=== PATIENT | male | born 1965 | race Caucasian/White ===

== ENCOUNTER → 2021-01-11 11:52 | Outpatient (REF) | payer MEDICARE, MEDICAID, SELFPAY ==
--- NOTE | 2021-01-11 12:01 | ECG_ITS ---
Test Reason : z78.9 Blood Pressure : / mmHG Vent. Rate : 086 BPM Atrial Rate : 086 BPM P-R Int : 140 ms QRS Dur : 102 ms QT Int : 344 ms P-R-T Axes : 002 017 041 degrees QTc Int : 411 ms Normal sinus rhythm Normal ECG When compared with ECG of 31-AUG-2009 14:06, No significant change was found Referred By: Flakito Wing Electronically Signed By:RUBEN COULTER MD
[2021-01-11 12:17] LABS: Basophils Absolute Auto 0.1 X10*3/uL (0.0-0.2); Basophils Percent Auto 0.5 % (0-2); Eosinophils Absolute Auto 0.3 X10*3/uL (0.0-0.4); Eosinophils Percent Auto 1.6 % (0-4); Hematocrit 37.7 % (42.0-52.0); Hemoglobin 12.2 g/dl (14.0-18.0); Imm Gran Abs Auto 0.26 X10*3/uL (0.00-0.03); Imm Gran Pct Auto 1.6 % (0.0-0.4); Lymphocytes Absolute Auto 1.9 X10*3/uL (1.2-4.9); MANUAL DIFF FLAG SCAN; Mean Corpuscular HGB Conc 32.4 g/dl (31.0-36.0); Mean Corpuscular Hemoglobin 31.8 pg (27.0-33.0); Mean Corpuscular Volume 98.2 fL (80.0-98.0); Monocytes Absolute Auto 1.5 X10*3/uL (0.1-1.2); Monocytes Percent Auto 9.5 % (2-11); Neutrophils Absolute Auto 11.8 x10*3/uL (2.0-8.3); Neutrophils Percent Auto 74.8 % (45-73); Platelet Count 415 X10*3/uL (160-400); Red Blood Count 3.84 X10*6/uL (4.60-5.80); Red Cell Distribution Width 14.1 % (11.0-16.0); SCAN SMEAR FLAG 1; White Blood Count 15.8 X10*3/uL (4.8-10.8)
[2021-01-11 13:14] LABS: SLIDE REVIEW VERIFIED
[2021-01-11 13:57] LABS: Alanine Aminotransferase 20 U/L (0-40); Albumin Level 3.7 g/dL (3.5-5.0); Alkaline Phosphatase 128 U/L (39-117); Anion Gap 17 (12-20); Aspartate Amino Transferase 24 U/L (5-37); Bilirubin Total 0.5 mg/dL (0.0-1.0); Blood Urea Nitrogen 19 mg/dL (9-16); Calcium 10.1 mg/dL (8.4-10.2); Carbon Dioxide 23 mmol/L (22-29); Chloride 101 mmol/L (96-108); Estimated Glomerular Filt Rate 54; Glucose Random 175 mg/dL (60-115); Potassium 4.6 mmol/L (3.3-5.1); Sodium 136 mmol/L (135-145); Total Protein 8.7 g/dL (6.5-8.0)
== END ==
LOC: HO.CARD 11:52
PROVIDERS: PCP Internal Medicine; Visit Provider Internal Medicine
DX: I10 Essential (primary) hypertension (principal); Z78.9 Other specified health status
CPT/HCPCS: 36415; 80053; 85025; 93005

== ENCOUNTER 2021-02-16 14:22 | Outpatient (RCR) | payer MEDICARE, MEDICAID, SELFPAY | END 2021-03-02 15:36 | disposition home or self-care (01) | LOC: HO.WCC 14:22 | PROVIDERS: PCP Internal Medicine; Visit Provider Surgery | DX: M71.022 Abscess of bursa, left elbow (principal); M1A.9XX1 Chronic gout, unspecified, with tophus (tophi); E11.40 Type 2 diabetes mellitus with diabetic neuropathy, unspecified; F17.210 Nicotine dependence, cigarettes, uncomplicated; Z79.84 Long term (current) use of oral hypoglycemic drugs; Z79.899 Other long term (current) drug therapy | CPT/HCPCS: 10060; 99212 ==

== ENCOUNTER 2021-05-03 10:39 | Outpatient (REF) | payer MEDICARE, MEDICAID, SELFPAY ==
[2021-05-03 13:51] LABS: Basophils Absolute Auto 0.1 X10*3/uL (0.0-0.2); Basophils Percent Auto 0.4 % (0-2); Eosinophils Absolute Auto 0.2 X10*3/uL (0.0-0.4); Eosinophils Percent Auto 0.9 % (0-4); Hematocrit 38.3 % (42.0-52.0); Hemoglobin 12.5 g/dl (14.0-18.0); Imm Gran Abs Auto 0.15 X10*3/uL (0.00-0.03); Imm Gran Pct Auto 0.8 % (0.0-0.4); Lymphocytes Absolute Auto 1.4 X10*3/uL (1.2-4.9); Lymphocytes Percent Auto 7.6 % (20-40); MANUAL DIFF FLAG SCAN; Mean Corpuscular HGB Conc 32.6 g/dl (31.0-36.0); Mean Corpuscular Hemoglobin 31.3 pg (27.0-33.0); Mean Corpuscular Volume 95.8 fL (80.0-98.0); Mean Platelet Volume 9.7 fL (9.4-12.4); Monocytes Absolute Auto 1.9 X10*3/uL (0.1-1.2); Monocytes Percent Auto 10.4 % (2-11); Neutrophils Absolute Auto 14.2 x10*3/uL (2.0-8.3); Neutrophils Percent Auto 79.9 % (45-73); Platelet Count 420 X10*3/uL (160-400); Red Cell Distribution Width 15.3 % (11.0-16.0); SCAN SMEAR FLAG 1; White Blood Count 17.8 X10*3/uL (4.8-10.8)
[2021-05-03 14:07] LABS: Estimated Average Glucose 131 mg/dL; Hemoglobin A1c % 6.2 %
[2021-05-03 14:26] LABS: SLIDE REVIEW VERIFIED
[2021-05-03 14:29] LABS: Alanine Aminotransferase 16 U/L (0-40); Albumin Level 3.9 g/dL (3.5-5.0); Alkaline Phosphatase 126 U/L (39-117); Anion Gap 16 (12-20); Aspartate Amino Transferase 16 U/L (5-37); Bilirubin Total 0.8 mg/dL (0.0-1.0); Blood Urea Nitrogen 25 mg/dL (9-16); Calcium 9.7 mg/dL (8.4-10.2); Carbon Dioxide 20 mmol/L (22-29); Chloride 107 mmol/L (96-108); Cholesterol 147 mg/dL; Estimated Glomerular Filt Rate 40; Glucose Fasting 139 mg/dL (60-99); HDL Cholesterol 45 mg/dL; LDL Cholesterol Calculated 73 mg/dl; Potassium 4.6 mmol/L (3.3-5.1); Sodium 138 mmol/L (135-145); Total Protein 7.5 g/dL (6.5-8.0); Triglycerides 148 mg/dL
[2021-05-03 14:40] LABS: Uric Acid 15.2 mg/dL (3.4-7.0)
== END 2021-05-03 10:40 | disposition home or self-care (01) ==
LOC: HO.HMGCLDS 10:39
PROVIDERS: PCP Internal Medicine; Visit Provider Nurse Practitioner Acute Care
DX: M1A.9XX1 Chronic gout, unspecified, with tophus (tophi) (principal)
CPT/HCPCS: 36415; 80053; 80061; 83036; 84550; 85025

== ENCOUNTER 2021-05-04 17:46 | Outpatient (REF) | payer MEDICARE, MEDICAID, SELFPAY ==
[2021-05-04 18:14] LABS: Creatinine Urine 205.89 mg/dL; Microalbum/Creatinine Ratio Ur 16.9 ug/mg cr
== END 2021-05-04 17:47 | disposition home or self-care (01) ==
LOC: HO.LNP 17:46
PROVIDERS: Visit Provider Nurse Practitioner Acute Care
DX: M1A.9XX1 Chronic gout, unspecified, with tophus (tophi) (principal)
CPT/HCPCS: 82043

== ENCOUNTER 2021-08-11 12:16 | Outpatient (REF) | payer MEDICARE, MEDICAID, SELFPAY ==
--- NOTE | ~2021-08-11 | XR_ITS ---
EXAMINATION: XR RIBS, LEFT CLINICAL INFORMATION: R07.81 - Pleurodynia COMPARISON: None TECHNIQUE: Frontal view chest and 3 views left ribs are obtained for a total of 4 views. FINDINGS: There are postsurgical changes on the left with orthopedic plate and screws involving the left lateral 6th, 7th, and 8th ribs. The hardware is intact. There is no destructive process or osteolysis. Surgical clips are seen in the overlying soft tissues lower left lateral chest. There is no acute or healing rib fracture or rib destructive process. The lungs are clear. There is no lobar or segmental airspace consolidation or effusion. Heart size normal. Vascularity normal. The hilar and mediastinal contours are unremarkable. XR/XR ribs LT min 3V w CXR1V IMPRESSION: -Postsurgical changes left lateral ribs. Hardware intact. No bony destructive process. -No pneumothorax, infiltrate, or effusion.
--- NOTE | ~2021-08-11 | XR_ITS ---
EXAMINATION: XR KNEE, LEFT CLINICAL INFORMATION: M25.562 - Pain in left knee COMPARISON: Bilateral knee radiographs 12/23/2007. TECHNIQUE: Four views of the left knee. FINDINGS: There has been prior left total knee arthroplasty. The hardware is intact. There is no fracture, dislocation, destructive process, periostitis, or osteolysis. There is spurring at the anteromedial inferior patella with some benign scattered small heterotopic bone adjacent to the lower pole patella. Small suprapatellar effusion is present and mild edema in the pre infrapatellar soft tissues. 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 XR/XR knee LT 4V IMPRESSION: -Status post total knee arthroplasty. Hardware intact. -Small suprapatellar effusion. -No destructive process or osteolysis.
[2021-08-11 12:46] LABS: MANUAL DIFF FLAG NO
[2021-08-11 13:05] LABS: Basophils Percent Auto 0.2 % (0-2); Eosinophils Percent Auto 0.2 % (0-4); Hematocrit 39.8 % (42.0-52.0); Hemoglobin 13.1 g/dl (14.0-18.0); Imm Gran Pct Auto 0.7 % (0.0-0.4); Lymphocytes Absolute Auto 0.9 X10*3/uL (1.2-4.9); Lymphocytes Percent Auto 5.6 % (20-40); Mean Corpuscular HGB Conc 32.9 g/dl (31.0-36.0); Mean Corpuscular Hemoglobin 31.5 pg (27.0-33.0); Mean Corpuscular Volume 95.7 fL (80.0-98.0); Mean Platelet Volume 8.9 fL (9.4-12.4); Monocytes Absolute Auto 0.6 X10*3/uL (0.1-1.2); Monocytes Percent Auto 4.2 % (2-11); Neutrophils Absolute Auto 13.5 x10*3/uL (2.0-8.3); Neutrophils Percent Auto 89.1 % (45-73); Platelet Count 287 X10*3/uL (160-400); Red Blood Count 4.16 X10*6/uL (4.60-5.80); Red Cell Distribution Width 16.4 % (11.0-16.0); White Blood Count 15.2 X10*3/uL (4.8-10.8)
[2021-08-11 13:14] LABS: Estimated Average Glucose 117 mg/dL; Hemoglobin A1c % 5.7 %
[2021-08-11 13:22] LABS: Appearance Urine HAZY; Color Urine YELLOW; Glucose Urine UA NEG (NEG); Leukocyte Esterase Urine NEG (NEG); Nitrite Urine NEG (NEG); PH 5.5 (5.0-8.0); UACC Culture Trigger NO; Urine Blood NEG (NEG); Urine Ketones 5 MG/DL (NEG); Urine Protein 2+ MG/DL (NEG-TRACE)
[2021-08-11 13:33] LABS: Alanine Aminotransferase 16 U/L (0-40); Albumin Level 4.2 g/dL (3.5-5.0); Alkaline Phosphatase 159 U/L (39-117); Anion Gap 14 (12-20); Aspartate Amino Transferase 29 U/L (5-37); Bilirubin Total 0.9 mg/dL (0.0-1.0); Blood Urea Nitrogen 16 mg/dL (9-16); Calcium 9.8 mg/dL (8.4-10.2); Carbon Dioxide 23 mmol/L (22-29); Chloride 105 mmol/L (96-108); Cholesterol 117 mg/dL; Estimated Glomerular Filt Rate > 60; Glucose Fasting 115 mg/dL (60-99); HDL Cholesterol 36 mg/dL; LDL Cholesterol Calculated 61 mg/dl; Potassium 4.3 mmol/L (3.3-5.1); Sodium 138 mmol/L (135-145); Total Protein 7.7 g/dL (6.5-8.0); Triglycerides 100 mg/dL
[2021-08-11 13:50] LABS: Squamous Epithelial Cell Urine TRACE /LPF
[2021-08-11 13:51] LABS: RBC Urine 0-2 /HPF (0); TSH reflex Free T4 0.84 uIU/mL (0.32-4.0); Vitamin D 25-OH Total 10.9 ng/mL (>30); WBC Urine 0-2 /HPF (0-4)
[2021-08-11 13:58] LABS: Creatinine Urine 339.63 mg/dL; Microalbum/Creatinine Ratio Ur 103.9 ug/mg cr
[2021-08-11 14:17] LABS: Uric Acid 4.5 mg/dL (3.4-7.0)
== END 2021-08-11 12:17 | disposition home or self-care (01) ==
LOC: HO.LAB 12:16
PROVIDERS: PCP Internal Medicine; Visit Provider Internal Medicine
DX: M25.562 Pain in left knee (principal); R07.81 Pleurodynia; I10 Essential (primary) hypertension; E55.9 Vitamin D deficiency, unspecified; E11.9 Type 2 diabetes mellitus without complications; M10.9 Gout, unspecified; E78.00 Pure hypercholesterolemia, unspecified
CPT/HCPCS: 36415; 71101; 73564; 80053; 80061; 81001; 82043; 82306; 83036; 84443; 84550; 85025

== ENCOUNTER → 2021-12-19 13:17 | Outpatient (BNVA) | payer MEDICARE, MEDICAID, SELFPAY | PROVIDERS: PCP Internal Medicine; Visit Provider Physician Assistant | DX: M10.9 Gout, unspecified (principal) | CPT/HCPCS: 99202 ==

== ENCOUNTER 2022-05-29 16:00 | Outpatient (REF) | payer MEDICARE, MEDICAID, SELFPAY ==
[2022-05-29 16:16] LABS: MANUAL DIFF FLAG NO
[2022-05-29 17:19] LABS: Basophils Absolute Auto 0.1 X10*3/uL (0.0-0.2); Basophils Percent Auto 0.4 % (0-2); Eosinophils Absolute Auto 0.1 X10*3/uL (0.0-0.4); Hemoglobin 13.2 g/dl (14.0-18.0); Imm Gran Abs Auto 0.18 X10*3/uL (0.00-0.03); Imm Gran Pct Auto 1.4 % (0.0-0.4); Lymphocytes Absolute Auto 1.3 X10*3/uL (1.2-4.9); Lymphocytes Percent Auto 10.3 % (20-40); Mean Corpuscular HGB Conc 31.4 g/dl (31.0-36.0); Mean Corpuscular Volume 95.5 fL (80.0-98.0); Mean Platelet Volume 9.1 fL (9.4-12.4); Monocytes Absolute Auto 1.1 X10*3/uL (0.1-1.2); Monocytes Percent Auto 8.5 % (2-11); Neutrophils Absolute Auto 9.8 x10*3/uL (2.0-8.3); Neutrophils Percent Auto 78.4 % (45-73); Platelet Count 312 X10*3/uL (160-400); Red Cell Distribution Width 14.9 % (11.0-16.0); White Blood Count 12.5 X10*3/uL (4.8-10.8)
[2022-05-29 17:34] LABS: Estimated Average Glucose 117 mg/dL; Hemoglobin A1c % 5.7 %
[2022-05-29 18:28] LABS: Syphilis Screen Nonreactive (Nonreactive)
[2022-05-29 18:35] LABS: TSH reflex Free T4 0.96 uIU/mL (0.32-4.0); Vitamin D 25-OH Total 11.3 ng/mL (>30)
[2022-05-29 18:41] LABS: Alanine Aminotransferase 19 U/L (0-40); Albumin Level 4.1 g/dL (3.5-5.0); Alkaline Phosphatase 144 U/L (39-117); Anion Gap 14 (12-20); Aspartate Amino Transferase 12 U/L (5-37); Bilirubin Total 1.1 mg/dL (0.0-1.0); Blood Urea Nitrogen 18 mg/dL (9-16); Calcium 9.4 mg/dL (8.4-10.2); Carbon Dioxide 23 mmol/L (22-29); Chloride 107 mmol/L (96-108); Cholesterol 160 mg/dL; Estimated Glomerular Filt Rate > 60; Glucose Fasting 146 mg/dL (60-99); HDL Cholesterol 38 mg/dL; LDL Cholesterol Calculated 87 mg/dl; Potassium 4.1 mmol/L (3.3-5.1); Sodium 140 mmol/L (135-145); Total Protein 6.8 g/dL (6.5-8.0); Triglycerides 177 mg/dL; Uric Acid < 1.0 mg/dL (3.4-7.0)
[2022-05-31 07:31] LABS: HBS Num1 0.07 mIU/mL (0-7.99); HBc Num1 0.04 S/CO (0.00-0.79); HBsAGNum1 0.34 S/CO (0.00-0.99); HIV AB/AG Nonreactive (Nonreactive); HIV Num 1 0.06 S/CO (0.00-0.99); Hepatitis B Core Antibody Nonreactive (Nonreactive); Hepatitis B Surface Antigen Negative (Negative); ~HepC Num1 0.06 S/CO (0.00-0.79); ~Hepatitis B Surface Antibody NONREACTIVE (Nonreactive); ~Hepatitis C Antibody Nonreactive (Nonreactive)
== END 2022-05-29 16:01 | disposition home or self-care (01) ==
LOC: HO.LAB 16:00
PROVIDERS: PCP Internal Medicine; Visit Provider Internal Medicine
DX: M10.9 Gout, unspecified (principal); Z11.4 Encounter for screening for human immunodeficiency virus [HIV]; E78.00 Pure hypercholesterolemia, unspecified; E55.9 Vitamin D deficiency, unspecified; Z20.2 Contact with and (suspected) exposure to infections with a predominantly sexual mode of transmission; I10 Essential (primary) hypertension; E11.9 Type 2 diabetes mellitus without complications; Z11.59 Encounter for screening for other viral diseases; Z72.89 Other problems related to lifestyle
CPT/HCPCS: 80053; 80061; 82306; 83036; 84443; 84550; 85025; 86704; 86706; 86780; 86803; 87340; 87389

== ENCOUNTER 2023-01-26 12:56 | Outpatient (AMB) | payer MEDICARE, MEDICAID, SELFPAY ==
--- NOTE | 2023-01-26 13:12 | A.OFFPC_ITS ---
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 Accompanied by: Self / Same As Patient Allergies codeine Allergy (Mild, Verified 01/28/23 21:14) Itching gabapentin Allergy (Mild, Verified 01/28/23 21:14) Rash mushroom Allergy (Mild, Verified 01/28/23 21:14) Vomiting nortriptyline Allergy (Mild, Verified 01/28/23 21:14) Nightmare mushrooms Allergy (Mild, Uncoded 01/28/23 21:14) Vomiting Medication List - Last Reconciled 01/28/23 by Flakito Wing MD albuterol sulfate 90 mcg/actuation (Ventolin HFA) 2 puffs PO amitriptyline mg PO atorvastatin 20 mg PO DAILY colchicine 0.6 mg PO BID cyclobenzaprine 5 mg PO TID PRN 10 days diphenhydramine HCl mg PO folic acid 1 mg PO DAILY glycopyrrolate 1 mg PO BID hydrocortisone 2.5% topical hydroxyzine HCl 25 mg PO TID PRN 30 days ketoconazole 2% 1 appl topical methotrexate sodium mg PO QWEEK methylprednisolone sod suc(PF) (Solu-Medrol (PF)) mg IM metoprolol succinate ER 25 mg PO DAILY nystatin 1 appl topical TID 10 days oxycodone 5 mg PO Q6H PRN 2 days pegloticase (Krystexxa) 8 mg IV Q2W prednisone 10 mg PO DAILY 7 days sodium chloride 0.9 % ea IV sodium chloride 0.9 % (flush) (BD PosiFlush Normal Saline 0.9 % injection syringe) mL IV Tobacco use date assessed: 08/23/22 Dental Screening Dental Screen Date: 01/26/23 Did you have a dental visit in the last 12 months?: Yes Did you have a dental problem in the last 6 months where you did not have access to dental care?: No Was dental information given to patient?: Patient has dentist HPI gouty arthritis, CKD, DM, hyperlipidemia HPI Details Patient comes in today for his follow up visit States that he currently feels okay Just received his last Krystexxa infusion last Sunday (2 days ago) but feels that he needs more infusion to prevent any further gout flare ups He denies any fever, headaches or dizziness Denies any chest pains, no SOB No nausea/vomiting, no abdominal pain No change in bowel habits noted Was not able to get his previously ordered follow up labs done prior to his visit today [facility] Medical History Anxiety Chronic kidney disease (CKD), stage III (moderate) Diabetes mellitus Obesity (BMI 30-39.9) Smoker COPD (chronic obstructive pulmonary disease) Pure hypercholesterolemia Benign essential hypertension Chronic tophaceous gout Surgical History History of lung surgery History of left knee replacement Family History Mother Diabetes Arthritis Father Gout Social History Housing: House Alcohol intake: current Alcohol intake frequency: holidays/special occasions only Alcohol type: beer Patient Tobacco Use Status: Current everyday Tobacco user Cigarettes Per Day: 5 e-Cigarette/Vaping Use: Never Used Second Hand Smoke Exposure: Yes service: No Current occupational status: disabled 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 Manuel Fox, Marlen Resendiz, Maco Wood and colleagues, with an educational poli from [employer] Review of Systems Const Denies chills, Reports fatigue, Denies fever(s) and Denies headache(s) ENT Denies dysphagia, Denies dizziness, Denies otalgia, Denies headache(s), Denies odynophagia and Denies sore throat Card Denies chest pain, Denies rapid heart rate, Denies palpitations and Denies dyspnea Resp Denies cough, Denies dyspnea and Denies wheezing GI Denies abdominal pain, Denies constipation, Denies dysphagia, Denies heartburn, Denies diarrhea, Denies nausea, Denies odynophagia and Denies vomiting Denies dysuria, Denies nocturia and Denies urinary frequency Musc Details: (+) multiple joint deformities, especially of the fingers on both hands, due to chronic tophaceous gout; (+) occasional pain over his left wrist and left arm recently (had wrist fracture and underwent surgery a few months ago) Reports arthralgias (chronic - involving multiple joints especially of his fingers) and Reports limited range of motion Neuro Denies dizziness and Denies headache(s) Psych Reports anxiety Endo Reports fatigue and Denies palpitations Aller/Immun Denies wheezing Physical exam (Primary Care) Vital Signs: Last Vital Signs Pulse 92 01/26/23 13:18 BP 140/86 H 01/26/23 13:18 Pulse Ox 96 01/26/23 13:18 Oxygen Delivery Method Room Air 01/26/23 13:18 BMI result Body Mass Index 39.1 Tobacco/Smoking Status: Tobacco use Status Tobacco use date assessed 08/23/22 01/26/23 13:14 Patient Tobacco Use Status Current everyday Tobacco 01/26/23 13:14 e-Cigarette/Vaping Use Never Used 01/26/23 13:14 Thrive Assessment: Date of Thrive Assessment Date Thrive assessed 08/23/22 01/26/23 13:14 Const General: no acute distress and alert HENMT Ears: TM's normal bilaterally and EAC's normal Throat: Yes posterior oropharynx normal and Yes tonsils normal (no TP congestion noted) Neck Neck: Yes no lymphadenopathy and Yes supple Resp Auscultation: clear to auscultation bilaterally, no rales and no wheezes Cardio Rate: regular rate Rhythm: regular rhythm Heart sounds: no murmurs GI Palpation (GI): Soft to palpation and nontender Auscultation: normal bowel sounds General: Yes no CVA tenderness Back/Spine/Pelvis Back: no CVA tenderness Skin Rashes: no rashes Extrem Other: (+) multiple joint deformities and tenderness, involving multiple fingers on both hands (with swelling/enlargement of IPs), ankles and knees General: Yes no clubbing, cyanosis or edema Results AMB Hemoglobin A1c AMB Hemoglobin A1c 6.5 % Last Edit by JANINA Chang on 01/26/23 13:26 Results Reviewed Results Reviewed: Laboratory Last Values Hgb A1c (Clinic) 6.5 % (4.0-6.0) H 01/26/23 13:06 Assessment and Plan Assessment & Plan (1) Chronic tophaceous gout: Code(s): M1A.9XX1 - Chronic gout, unspecified, with tophus (tophi) Plan: Reinforced low purine diet Serum uric acid level was <1.0 on his labs done back in May 2022; was at 4.5 back in July 2021 Continue Allopurinol 300 mg 3 tablets (900 mg) QD and Probenecid 500 mg BID; continue Indomethacin 25 mg 1 to 2 tablets TID PRN and Methotrexate 15 mg tablets once a week States that he just received his last dose of Krystexxa 8 mg IV (was getting this Q 2 weeks) 2 days ago but feels that he needs to continue on this Have advised patient to go and get his follow up labs done ZENON and depending on his results, we will determine if he needs additional doses of Krystexxa at this time Used to follow up with rheumatology at the [facility] but states that he has not been there in a while as he felt that they were not really doing anything for him He was referred to [facility] for a second opinion previously to see if they have any other recommendations regarding his condition(s) but he could not make his appointment back in October 2022 and he called to rescheduled - is now scheduled to be seen by Dr. Mixon on 02/28/2023 (2) Benign essential hypertension: Code(s): I10 - Essential (primary) hypertension Plan: Reinforced low sodium diet - goal is systolic BP of 120 to 130 mm or less Continue Amlodipine 10 mg QD and Metoprolol ER 25 mg QD (3) Pure hypercholesterolemia: Code(s): E78.00 - Pure hypercholesterolemia, unspecified Plan: Was not able to get his previously ordered labs done prior to his visit today - have instructed patient to go and get these done ZENON Reinforced low cholesterol diet Continue Atorvastatin 20 mg QD Will recheck his labs and fasting lipids in 3 months for follow up (4) Diabetes mellitus: Code(s): E11.9 - Type 2 diabetes mellitus without complications Qualifiers: Diabetes mellitus type: type 2 Diabetes mellitus buttermaker continuous churn insulin use: without buttermaker continuous churn use Diabetes mellitus complication status: without complication Qualified Code(s): E11.9 - Type 2 diabetes mellitus without complications Plan: In-office HgbA1c done today is at 6.5% (HgbA1c was at 5.7% on his labs done back in May 2022) - goal is <7.0% Reinforced diabetic diet Patient is currently on NO Rx for diabetes and is just maintaining/controlling his diabetes with diet modification alone (5) Chronic kidney disease (CKD), stage III (moderate): Code(s): N18.30 - Chronic kidney disease, stage 3 unspecified Qualifiers: Chronic kidney disease stage 3 subtype: stage 3b (GFR 30-44) Qualified Code(s): N18.32 - Chronic kidney disease, stage 3b Plan: His renal function appears to have improved significantly on his labs back in May 2022 His CKD is most likely multifactorial, including due to his HTN and DM as well as his significantly elevated uric acid burden and intractable gout Reinforced adequate hydration Follow up with nephrology (Dr. Hunt) as scheduled (6) COPD (chronic obstructive pulmonary disease): Code(s): J44.9 - Chronic obstructive pulmonary disease, unspecified Qualifiers: COPD type: unspecified COPD Qualified Code(s): J44.9 - Chronic obstructive pulmonary disease, unspecified Plan: Continue Albuterol HFA 2 inhalations every 6 hours as needed (7) Anxiety: Code(s): F41.9 - Anxiety disorder, unspecified Plan: Continue Hydroxyzine 25 mg TID PRN (8) Smoker: Code(s): F17.200 - Nicotine dependence, unspecified, uncomplicated Plan: Counseled again on smoking cessation (9) Obesity (BMI 30-39.9): Code(s): E66.9 - Obesity, unspecified Plan: Reinforced diet and weight loss; exercise does not appear to be a realistic option due to patient's chronic tophaceous gout as well as his joint deformities and chronic joint pains Plan Follow up in 3 months Orders: Orders AMB Hemoglobin A1c 01/26/23 E11.9 - Type 2 diabetes mellitus without complications Microalbumin, Random (w Creat) 3 Months E11.9 - Type 2 diabetes mellitus without complications Uric Acid 3 Months M10.9 - Gout, unspecified Complete Blood Count Auto Diff 3 Months I10 - Essential (primary) hypertension Lipid Panel 3 Months E78.00 - Pure hypercholesterolemia, unspecified Comprehensive Alto. Panel Fast 3 Months E78.00 - Pure hypercholesterolemia, unspecified Hemoglobin A1c 3 Months E11.9 - Type 2 diabetes mellitus without complications TSH reflex Free T4 3 Months E78.00 - Pure hypercholesterolemia, unspecified UA CC w/rflx Micro + Cult 3 Months R30.0 - Dysuria Vitamin D 25-OH Total 3 Months E55.9 - Vitamin D deficiency, unspecified Coding Level of Care Code Est Pt Level 4 (70089) Diagnoses Chronic tophaceous gout M1A.9XX1 Benign essential hypertension I10 Pure hypercholesterolemia E78.00 Type 2 diabetes mellitus without complication, without long-term current use of insulin E11.9 Diabetes mellitus type: type 2 Diabetes mellitus prison insulin use: without prison use Diabetes mellitus complication status: without complication Stage 3b chronic kidney disease N18.32 Chronic kidney disease stage 3 subtype: stage 3b (GFR 30-44) Chronic obstructive pulmonary disease, unspecified COPD type J44.9 COPD type: unspecified COPD Anxiety F41.9 Smoker F17.200 Obesity (BMI 30-39.9) E66.9
[2023-01-26 13:18] VITALS: BP 140/86; PULSE 92; O2SAT 96; BMI 39.1
== END 2023-01-26 13:59 | disposition home or self-care (01) ==
PROVIDERS: PCP Internal Medicine; Visit Provider Internal Medicine
DX: E11.9 Type 2 diabetes mellitus without complications (principal)
CPT/HCPCS: 83036; 99214

== ENCOUNTER 2023-02-28 13:05 | Outpatient (REF) | payer MEDICARE, MEDICAID, SELFPAY ==
[2023-02-28 14:11] LABS: MANUAL DIFF FLAG NO
[2023-02-28 15:43] LABS: Basophils Absolute Auto 0.1 X10*3/uL (0.0-0.2); Basophils Percent Auto 0.7 % (0-2); Eosinophils Absolute Auto 0.1 X10*3/uL (0.0-0.4); Eosinophils Percent Auto 0.5 % (0-4); Hematocrit 46.1 % (42.0-52.0); Hemoglobin 14.9 g/dl (14.0-18.0); Imm Gran Abs Auto 0.12 X10*3/uL (0.00-0.03); Lymphocytes Absolute Auto 1.7 X10*3/uL (1.2-4.9); Lymphocytes Percent Auto 13.4 % (20-40); Mean Corpuscular HGB Conc 32.3 g/dl (31.0-36.0); Mean Corpuscular Hemoglobin 32.5 pg (27.0-33.0); Mean Corpuscular Volume 100.4 fL (80.0-98.0); Mean Platelet Volume 9.7 fL (9.4-12.4); Monocytes Absolute Auto 1.1 X10*3/uL (0.1-1.2); Monocytes Percent Auto 8.9 % (2-11); Neutrophils Absolute Auto 9.5 x10*3/uL (2.0-8.3); Neutrophils Percent Auto 75.5 % (45-73); Platelet Count 343 X10*3/uL (160-400); Red Blood Count 4.59 X10*6/uL (4.60-5.80); Red Cell Distribution Width 15.2 % (11.0-16.0); White Blood Count 12.6 X10*3/uL (4.8-10.8)
[2023-02-28 16:13] LABS: Alanine Aminotransferase 26 U/L (0-40); Albumin Level 4.4 g/dL (3.5-5.0); Alkaline Phosphatase 130 U/L (39-117); Anion Gap 14 (12-20); Aspartate Amino Transferase 22 U/L (5-37); Bilirubin Total 0.7 mg/dL (0.0-1.0); Blood Urea Nitrogen 24 mg/dL (9-16); Calcium 9.9 mg/dL (8.4-10.2); Carbon Dioxide 21 mmol/L (22-29); Chloride 110 mmol/L (96-108); Cholesterol 214 mg/dL (<200); Estimated Glomerular Filt Rate 55; Glucose Fasting 128 mg/dL (60-99); HDL Cholesterol 37 mg/dL (>40); LDL Cholesterol Calculated 128 mg/dL (<100); Potassium 4.1 mmol/L (3.3-5.1); Sodium 141 mmol/L (135-145); Triglycerides 248 mg/dL (<150); Uric Acid 12.3 mg/dL (3.4-7.0)
[2023-02-28 16:21] LABS: TSH reflex Free T4 1.02 uIU/mL (0.32-4.0); Vitamin D 25-OH Total 11.6 ng/mL (>30)
[2023-02-28 16:49] LABS: Erythrocyte Sedimentation Rate 16 MM/HR (0-15)
== END 2023-02-28 13:06 | disposition home or self-care (01) ==
LOC: HO.LAB 13:05
PROVIDERS: PCP Internal Medicine; Referring Provider Internal Medicine; Visit Provider Student in an Organized Health Care Education/Training Program
DX: M1A.9XX1 Chronic gout, unspecified, with tophus (tophi) (principal); I10 Essential (primary) hypertension; E78.00 Pure hypercholesterolemia, unspecified; E11.9 Type 2 diabetes mellitus without complications; E55.9 Vitamin D deficiency, unspecified; Z79.899 Other long term (current) drug therapy
CPT/HCPCS: 36415; 80053; 80061; 82306; 83036; 84443; 84550; 85025; 85652; 99202

== ENCOUNTER 2023-02-28 13:05 | Outpatient (AMB) | payer MEDICARE, MEDICAID, SELFPAY ==
--- NOTE | 2023-02-28 13:08 | MHC.OFFVIS ---
Intake Vital Signs 02/28/23 13:10 Height 5 ft 10 in Weight 264 lb 8.875 oz BMI 38.0 BP 126/78 Blood Pressure Location Rt brachial Position Sitting Pulse 105 H Pulse Source Pulse Oximeter Intake Visit Reasons: Gout Intake Note: New pt presents today for Gout consult. Previously seen at [facility] in [place] and Rheumatology in [place] a while ago, pt does not recall name of provider.. Wants to discuss Krystexxa infusion. Last infusion was some time in January. Cottrell Blower Required: No Accompanied by: Self / Same As Patient Allergies codeine Allergy (Mild, Verified 02/28/23 13:13) Itching gabapentin Allergy (Mild, Verified 02/28/23 13:13) Rash mushroom Allergy (Mild, Verified 02/28/23 13:13) Vomiting nortriptyline Allergy (Mild, Verified 02/28/23 13:13) Nightmare mushrooms Allergy (Mild, Uncoded 02/28/23 13:13) Vomiting Medication List - Last Reconciled 02/28/23 by Darren Mixon MD albuterol sulfate 90 mcg/actuation (Ventolin HFA) 2 puffs PO PRN amitriptyline 100 mg PO DAILY atorvastatin 20 mg PO DAILY colchicine 0.3 mg PO DAILY cyclobenzaprine 5 mg PO TID PRN 10 days diphenhydramine HCl mg PO folic acid 1 mg PO DAILY glycopyrrolate 2 mg PO Q8H hydrocortisone 2.5% topical hydroxyzine HCl 25 mg PO TID PRN 30 days ketoconazole 2% 1 appl topical methylprednisolone sod suc(PF) (Solu-Medrol (PF)) mg IM metoprolol succinate ER 25 mg PO DAILY nystatin 1 appl topical TID 10 days oxycodone 5 mg PO Q6-8H PRN 2 days pegloticase (Krystexxa) 8 mg IV Q2W sodium chloride 0.9 % (flush) (BD PosiFlush Normal Saline 0.9 % injection syringe) mL IV HPI HPI Comments History of Present Illness Details This is a 57-year-old male with chronic tophaceous gout who presents for gout evaluation. Patient states that he has had gout since age 14. Has been on numerous medicines including allopurinol, Uloric, colchicine, probenecid. 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 States that he has done quite well on Krystexxa with very few gout flare-ups. States that the tophi on his fingers and toes have reduced in size on Krystexxa. He has been taking colchicine 0.3 mg daily. States that colchicine 0.6 mg Twice daily causes diarrhea. 0.6 mg daily is well tolerated. He was on methotrexate while on Krystexxa but not anymore. While on Krystexxa his uric acid level was undetectable. He states that he had numerous kidney stones over the years Patient states that he feels a little worse now that he is off Krystexxa. [facility] Medical History Anxiety Chronic kidney disease (CKD), stage III (moderate) Diabetes mellitus Obesity (BMI 30-39.9) Smoker COPD (chronic obstructive pulmonary disease) Pure hypercholesterolemia Benign essential hypertension Chronic tophaceous gout Surgical History History of lung surgery History of left knee replacement Family History Mother Diabetes Arthritis Father Gout Social History Housing: House Alcohol intake: current Alcohol intake frequency: holidays/special occasions only Alcohol type: beer Patient Tobacco Use Status: Current everyday Tobacco user Cigarettes Per Day: 5 e-Cigarette/Vaping Use: Never Used Second Hand Smoke Exposure: Yes service: No Current occupational status: disabled 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 Cognitive needs: No Hearing needs: No Vision needs: No Review of Systems [facility] Reports arthralgias and Reports stiffness Physical Exam Vital Signs: Last Vital Signs Pulse 105 H 02/28/23 13:10 BP 126/78 02/28/23 13:10 BMI result Body Mass Index 38.0 Const General: cooperative, healthy appearing and comfortable Nutritional Appearance: obese morbidly obese Orientation/consciousness: patient oriented x3 Limitations: no limitations HEENT Head: Yes normocephalic and Yes atraumatic Mouth: moist mucous membranes Resp Effort & Inspection: normal respiratory effort and able to speak in complete sentences Auscultation: clear to auscultation bilaterally Cardio Rate: regular rate Rhythm: regular rhythm GI Inspection: No distended Palpation (GI): Soft to palpation and nontender Skin General skin exam: no rashes or lesions noted Neuro General: patient oriented x3 Extrem Other: Large tophi on the extensor aspect of both elbows. Bilateral elbow contracture. Few tophi on fingers and toes No active synovitis today Right knee crepitus Assessment & Plan Assessment & Plan (1) Chronic tophaceous gout: Code(s): M1A.9XX1 - Chronic gout, unspecified, with tophus (tophi) Plan: This is a 57-year-old male with chronic tophaceous gout who presents as a new patient his gout was diagnosed at age 14, complicated by kidney stones. and has been on numerous medications including allopurinol, Uloric, probenecid, colchicine. Most recently he was started on Krystexxa by Nephrology in the fall of 2021 and his most recent infusion was in early January 2023. He has done quite well on Krystexxa and his uric acid level while on Krystexxa was undetectable. Will check his uric acid level today. Advised patient to increase his colchicine 0.6 mg once daily. Twice daily dose causes diarrhea. Plan to start allopurinol, likely 900 mg daily Follow-up in 8 weeks. Plan I spent 47 minutes reviewing patient's chart, evaluating patient, ordering diagnostic workup, counseling patient and documenting in the chart Orders: Orders Erythrocyte Sedimentation Rate Today M10.9 - Gout, unspecified C Reactive Protein Today M10.9 - Gout, unspecified Medications: Changed From colchicine 0.3 mg PO DAILY To colchicine 0.6 mg PO DAILY 90 tabs 1RF Coding Level of Care Code New Pt Level 4 (38860) Diagnoses Chronic tophaceous gout M1A.9XX1
[2023-02-28 13:10] VITALS: BP 126/78; PULSE 105; BMI 38.0
== END 2023-02-28 13:41 | disposition home or self-care (01) ==
PROVIDERS: PCP Internal Medicine; Visit Provider Student in an Organized Health Care Education/Training Program
DX: M1A.9XX1 Chronic gout, unspecified, with tophus (tophi) (principal)
CPT/HCPCS: 99204

== ENCOUNTER 2023-04-06 13:33 | Outpatient (AMB) | payer MEDICARE, MEDICAID, SELFPAY ==
[2023-04-06 13:36] VITALS: BP 140/98; PULSE 84; O2SAT 98; BMI 38.4
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
== END 2023-04-06 14:07 | disposition home or self-care (01) ==
PROVIDERS: PCP Internal Medicine; Visit Provider Internal Medicine
DX: G44.319 Acute post-traumatic headache, not intractable (principal); Y09 Assault by unspecified means; S02.30XA Fracture of orbital floor, unspecified side, initial encounter for closed fracture; H11.32 Conjunctival hemorrhage, left eye; S01.01XA Laceration without foreign body of scalp, initial encounter; S30.1XXA Contusion of abdominal wall, initial encounter
CPT/HCPCS: 99214

== ENCOUNTER 2023-04-26 15:52 | Outpatient (AMB) | payer MEDICARE, MEDICAID, SELFPAY ==
[2023-04-26 15:55] VITALS: BP 150/74; PULSE 89; TEMP 36.4; O2SAT 97; BMI 38.7
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
== END 2023-04-26 16:20 | disposition home or self-care (01) ==
PROVIDERS: PCP Internal Medicine; Visit Provider Student in an Organized Health Care Education/Training Program
DX: M1A.9XX1 Chronic gout, unspecified, with tophus (tophi) (principal); Z79.631 Long term (current) use of antimetabolite agent
CPT/HCPCS: 99214

== ENCOUNTER → 2023-04-26 15:52 | Outpatient (BNVA) | payer MEDICARE, MEDICAID, SELFPAY | PROVIDERS: PCP Internal Medicine; Visit Provider Student in an Organized Health Care Education/Training Program | DX: M1A.9XX1 Chronic gout, unspecified, with tophus (tophi) (principal); Z79.631 Long term (current) use of antimetabolite agent | CPT/HCPCS: 99212 ==

== ENCOUNTER 2023-05-01 13:49 | Outpatient (AMB) | payer MEDICARE, MEDICAID, SELFPAY ==
[2023-05-01 13:54] VITALS: BP 112/80; PULSE 94; O2SAT 95; BMI 37.9
--- NOTE | 2023-05-01 13:54 | A.OFFPC_ITS ---
Vital Signs 05/01/23 13:54 Height 5 ft 10 in Weight 264 lb 6 oz BMI 37.9 BP 112/80 Blood Pressure Location Lt brachial Position Sitting Pulse 94 Pulse Source Pulse Oximeter Pulse Oximetry (%) 95 Oxygen Delivery Method Room Air Intake Visit Reasons: 3 month f/u Rate Reviewer Required: No Accompanied by: Self / Same As Patient Allergies codeine Allergy (Mild, Verified 05/19/23 15:05) Itching gabapentin Allergy (Mild, Verified 05/19/23 15:05) Rash mushroom Allergy (Mild, Verified 05/19/23 15:05) Vomiting nortriptyline Allergy (Mild, Verified 05/19/23 15:05) Nightmare mushrooms Allergy (Mild, Uncoded 05/19/23 15:05) Vomiting Medication List - Last Reconciled 05/19/23 by Flakito Wing MD albuterol sulfate 90 mcg/actuation (Ventolin HFA) 2 puffs PO PRN amitriptyline 100 mg PO DAILY atorvastatin 20 mg PO DAILY colchicine 0.6 mg PO DAILY cyclobenzaprine 5 mg PO TID PRN 10 days diphenhydramine HCl mg PO folic acid 1 mg PO DAILY glycopyrrolate 2 mg PO Q8H hydrocortisone 2.5% topical hydroxyzine HCl 25 mg PO TID PRN 30 days ketoconazole 2% 1 appl topical Krystexxa (pegloticase) 8 mg IV Q2W NS methotrexate sodium 15 mg (6 x 2.5 mg) PO QWEEK metoprolol succinate ER 25 mg PO DAILY nystatin 1 appl topical TID 10 days sodium chloride 0.9 % (flush) (BD PosiFlush Normal Saline 0.9 % injection syringe) mL IV Tobacco use date assessed: 05/01/23 Dental Screening Dental Screen Date: 05/01/23 Did you have a dental visit in the last 12 months?: Yes Did you have a dental problem in the last 6 months where you did not have access to dental care?: No Was dental information given to patient?: Patient has dentist HPI 3 month f/u HPI Details Patient comes in today for his follow up visit States that he feels okay and that his previous injuries from last month, including the hematomas over his left side and around his left eye, have all cleared up a lot and are now almost completely resolved He was seen by a maxillofacial surgeon a couple of weeks ago and was advised that he would not need any surgery for his left orbital fracture He was seen by rheumatology for follow up last week and was restarted on Krytexxa He denies any increased headaches or dizziness Denies any visual symptoms Denies any chest pains, no SOB No nausea/vomiting, no abdominal pain No change in bowel habits noted He has not yet gotten his follow up labs done yet - states that he will try to get them done [facility] Medical History Anxiety Chronic kidney disease (CKD), stage III (moderate) Diabetes mellitus Obesity (BMI 30-39.9) Smoker COPD (chronic obstructive pulmonary disease) Pure hypercholesterolemia Benign essential hypertension Chronic tophaceous gout Surgical History History of lung surgery History of left knee replacement Family History Mother Diabetes Arthritis Father Gout Social History Housing: House Alcohol intake: current Alcohol intake frequency: holidays/special occasions only Alcohol type: beer Patient Tobacco Use Status: Current everyday Tobacco user Cigarettes Per Day: 5 e-Cigarette/Vaping Use: Never Used Second Hand Smoke Exposure: Yes service: No Current occupational status: disabled 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 1. Little interest or pleasure in doing things: not at all 2. Feeling down, depressed, or hopeless: not at all 3. Trouble falling or staying asleep, or sleeping too much: more than half the days 4. Feeling tired or having little energy: not at all 5. Poor appetite or overeating: nearly every day 6. Feeling bad about yourself - or that you are a failure or have let yourself or your family down: not at all 7. Trouble concentrating on things, such as reading the newspaper or watching television: not at all 8. Moving or speaking so slowly that other people could have noticed. Or the opposite - being so fidgety or restless that you have been moving around a lot more than usual: not at all 9. Thoughts that you would be better off or of hurting yourself in some way: not at all Total score: 5 Depression Screening Interpretation: Positive Depression Screening Follow-up: Existing condition and Follow-up Visit Requested Depression Screening Done: Yes 78869 - PHQ-9 Billing: Yes Source: Developed by Drs. Manuel Fox, Marlen eRsendiz, Maco Wood and colleagues, with an educational poli from [employer]. Thrive Questionnaire Date Thrive assessed: 05/01/23 I am a: Patient What is your living situation today?: I have a steady place to live Within the past 12 months, did the food you bought not last and you didn't have the money to get more?: Never true Within the past 12 months, did you worry whether your food would run out before you got money to buy more?: Never true Do you have trouble paying for medicines?: No Do you have trouble getting transportation to medical appointments?: No Do you have trouble paying your heating and electricity bill?: No Do you have trouble taking care of your child, family member or friend?: No Do you have trouble with day-to-day activities such as bathing, preparing meals, shopping, managing finances, etc.?: No Are you currently unemployed and looking for a job?: No Are you interested in more education?: No Please select the resources that you would like help with: None Currently or been in a relationship where the following occur: no concerns reported THRIVE Score: 0 AUDIT C Alcohol Use Questionnaire (AUDIT-C) 1. How often do you have a drink containing alcohol?: Monthly or less 2. How many drinks containing alcohol do you have on a typical day when you are drinking?: 1 or 2 3. How often do you have six or more drinks on one occasion?: Never Total Score: 1 Score Reviewed/Action Taken: Yes SURAJ-7 AMB Questionnaire SURAJ-7 Date SURAJ - 7 assessed: 05/01/23 Feeling nervous, anxious, or on edge: 0 = Not at all Not being able to stop or control worryin = Not at all Worrying too much about different things: 0 = Not at all Trouble relaxin = Not at all Being so restless that it is hard to sit still: 0 = Not at all Becoming easily annoyed or irritable: 0 = Not at all Feeling afraid as if something awful might happen: 0 = Not at all Total SURAJ-7 score (0-4 normal; 5-9 mild; 10-14 moderate; 15-21 severe): 0 Source: Developed by Drs. Manuel Fox, Marlen Resendiz, Maco Wood and colleagues, with an educational poli from [employer]. Review of Systems Const Denies chills, Reports fatigue, Denies fever(s) and Denies headache(s) ENT Denies dysphagia, Denies dizziness, Denies otalgia, Denies headache(s), Denies neck pain, Denies odynophagia and Denies sore throat Card Denies chest pain, Denies rapid heart rate, Denies palpitations and Denies d yspnea Resp Denies chest congestion, Denies cough, Denies dyspnea and Denies wheezing GI Denies abdominal pain, Denies constipation, Denies dysphagia, Denies heartburn, Denies diarrhea, Denies nausea, Denies odynophagia and Denies vomiting Denies dysuria, Denies nocturia and Denies urinary frequency Musc Details: (+) multiple joint deformities, especially of the fingers on both hands, due to chronic tophaceous gout; (+) occasional pain over his left wrist and left arm recently (had wrist fracture and underwent surgery a few months ago) Denies back pain, Reports arthralgias (chronic - involving multiple joints especially of his fingers), Reports limited range of motion and Denies neck pain Skin/Breast Denies rash Neuro Denies dizziness and Denies headache(s) Psych Reports anxiety Endo Reports fatigue and Denies palpitations Aller/Immun Denies wheezing Physical exam (Primary Care) Vital Signs: Last Vital Signs Pulse 94 05/01/23 13:54 BP 112/80 05/01/23 13:54 Pulse Ox 95 05/01/23 13:54 Oxygen Delivery Method Room Air 05/01/23 13:54 BMI result Body Mass Index 37.9 Tobacco/Smoking Status: Tobacco use Status Tobacco use date assessed 05/01/23 05/01/23 14:00 Patient Tobacco Use Status Current everyday Tobacco 05/01/23 14:00 e-Cigarette/Vaping Use Never Used 05/01/23 14:00 PHQ-9: PHQ-9 Score PHQ-9: Total score 5 05/19/23 15:07 Depression Screening Interpretation: Positive Depression Screening Follow-up: Existing condition and Follow-up Visit Requested Thrive Assessment: Date of Thrive Assessment Date Thrive assessed 05/01/23 05/01/23 14:00 Currently or been in a relationship where the following occur: no concerns reported Const General: no acute distress and alert HENMT Ears: TM's normal bilaterally and EAC's normal Throat: Yes posterior oropharynx normal and Yes tonsils normal (no TP congestion noted) Neck Neck: Yes no lymphadenopathy and Yes supple Thyroid: Thyroid normal Resp Auscultation: clear to auscultation bilaterally, no rales and no wheezes Cardio Rate: regular rate Rhythm: regular rhythm Heart sounds: no murmurs GI Palpation (GI): Soft to palpation and nontender Auscultation: normal bowel sounds General: Yes no CVA tenderness Back/Spine/Pelvis Back: no CVA tenderness Thoracic/Lumbar Spine: No lumbar spinal tenderness Extrem Other: (+) multiple joint deformities and tenderness, involving multiple fingers on both hands (with swelling/enlargement of IPs), ankles and knees General: Yes no clubbing, cyanosis or edema Assessment and Plan Assessment & Plan (1) Chronic tophaceous gout: Comment: dx at age 14 Numerous medications including allopurinol, Uloric, probenecid, colchicine Krystexxa started fall- until 01/2023 with reduction of tophi size Krystexxa restarted 03/2023 Code(s): M1A.9XX1 - Chronic gout, unspecified, with tophus (tophi) Plan: Reinforced low purine diet Serum uric acid level was <1.0 on his labs done back in May 2022; was at 4.5 back in July 2021 Continue Allopurinol 300 mg 3 tablets (900 mg) QD and Probenecid 500 mg BID; continue Indomethacin 25 mg 1 to 2 tablets TID PRN and Methotrexate 15 mg tablets once a week He used to follow up with rheumatology at [facility] but is now seeing Dr. Mixon at [facility] - was seen last week for his follow up visit and was started back on Krystexxa Follow up with rheumatology as scheduled (2) Benign essential hypertension: Code(s): I10 - Essential (primary) hypertension Plan: Reinforced low sodium diet - goal is systolic BP of 120 to 130 mm or less Continue Amlodipine 10 mg QD and Metoprolol ER 25 mg QD (3) Pure hypercholesterolemia: Code(s): E78.00 - Pure hypercholesterolemia, unspecified Plan: Was not able to get his previously ordered labs done prior to his visit today - have instructed patient to go and get these done [facility] Reinforced low cholesterol diet Continue Atorvastatin 20 mg QD Will recheck his labs and fasting lipids again in 3 months for follow up (4) Diabetes mellitus: Code(s): E11.9 - Type 2 diabetes mellitus without complications Qualifiers: Diabetes mellitus complication status: without complication Diabetes mellitus [facility] insulin use: without [facility] use Diabetes mellitus type: type 2 Qualified Code(s): E11.9 - Type 2 diabetes mellitus without complications Plan: In-office HgbA1c was at 6.5% back in January 2023 (HgbA1c was at 5.7% previous to that in May 2022) - goal is <7.0% Reinforced diabetic diet Patient is currently on NO Rx for diabetes and is just maintaining/controlling his diabetes with diet modification alone (5) Chronic kidney disease (CKD), stage III (moderate): Code(s): N18.30 - Chronic kidney disease, stage 3 unspecified Qualifiers: Chronic kidney disease stage 3 subtype: stage 3b (GFR 30-44) Qualified Code(s): N18.32 - Chronic kidney disease, stage 3b Plan: His renal function appears to have improved significantly on his labs back in May 2022 His CKD is most likely multifactorial, including due to his HTN and DM as well as his significantly elevated uric acid burden and intractable gout Reinforced adequate hydration Follow up with nephrology (Dr. Hunt) as scheduled (6) COPD (chronic obstructive pulmonary disease): Code(s): J44.9 - Chronic obstructive pulmonary disease, unspecified Qualifiers: COPD type: unspecified COPD Qualified Code(s): J44.9 - Chronic obstructive pulmonary disease, unspecified Plan: Continue Albuterol HFA 2 inhalations every 6 hours as needed (7) Anxiety: Code(s): F41.9 - Anxiety disorder, unspecified Plan: Continue Hydroxyzine 25 mg TID PRN (8) Smoker: Code(s): F17.200 - Nicotine dependence, unspecified, uncomplicated Plan: Counseled again on smoking cessation (9) Obesity (BMI 30-39.9): Code(s): E66.9 - Obesity, unspecified Plan: Reinforced diet and weight loss; exercise does not appear to be a realistic option due to patient's chronic tophaceous gout as well as his joint deformities and chronic joint pains Plan Follow up in 3 months Orders: Orders Complete Blood Count Auto Diff 3 Months D64.9 - Anemia, unspecified Comprehensive [place]. Panel Fast 3 Months E78.00 - Pure hypercholesterolemia, unspecified Uric Acid 3 Months M10.9 - Gout, unspecified Hemoglobin A1c 3 Months E11.9 - Type 2 diabetes mellitus without complications Lipid Panel 3 Months E78.00 - Pure hypercholesterolemia, unspecified TSH reflex Free T4 3 Months E78.00 - Pure hypercholesterolemia, unspecified UA CC w/rflx Micro + Cult 3 Months R30.0 - Dysuria Vitamin D 25-OH Total 3 Months E55.9 - Vitamin D deficiency, unspecified Coding Level of Care Code Est Pt Level 4 (55709) Diagnoses Chronic tophaceous gout M1A.9XX1 Benign essential hypertension I10 Pure hypercholesterolemia E78.00 Type 2 diabetes mellitus without complication, without long-term current use of insulin E11.9 Diabetes mellitus complication status: without complication Diabetes mellitus [facility] insulin use: without technician terminal and repeater use Diabetes mellitus type: type 2 Stage 3b chronic kidney disease N18.32 Chronic kidney disease stage 3 subtype: stage 3b (GFR 30-44) Chronic obstructive pulmonary disease, unspecified COPD type J44.9 COPD type: unspecified COPD Anxiety F41.9 Smoker F17.200 Obesity (BMI 30-39.9) E66.9
== END 2023-05-01 14:29 | disposition home or self-care (01) ==
PROVIDERS: PCP Internal Medicine; Visit Provider Internal Medicine
DX: M1A.9XX1 Chronic gout, unspecified, with tophus (tophi) (principal); I12.9 Hypertensive chronic kidney disease with stage 1 through stage 4 chronic kidney disease, or unspecified chronic kidney disease; E11.22 Type 2 diabetes mellitus with diabetic chronic kidney disease; N18.32 Chronic kidney disease, stage 3b; J44.9 Chronic obstructive pulmonary disease, unspecified; F41.9 Anxiety disorder, unspecified; F17.200 Nicotine dependence, unspecified, uncomplicated; E66.9 Obesity, unspecified
CPT/HCPCS: 99214

== ENCOUNTER 2023-07-12 14:01 | Outpatient (AMB) | payer MEDICARE, MEDICAID, SELFPAY ==
--- NOTE | 2023-06-29 12:07 | MHC.OFFVIS ---
Intake Visit Reasons: Gout Allergies codeine Allergy (Mild, Verified 05/19/23 15:05) Itching gabapentin Allergy (Mild, Verified 05/19/23 15:05) Rash mushroom Allergy (Mild, Verified 05/19/23 15:05) Vomiting nortriptyline Allergy (Mild, Verified 05/19/23 15:05) Nightmare mushrooms Allergy (Mild, Uncoded 05/19/23 15:05) Vomiting PFSH Medical History Anxiety Chronic kidney disease (CKD), stage III (moderate) Diabetes mellitus Obesity (BMI 30-39.9) Smoker COPD (chronic obstructive pulmonary disease) Pure hypercholesterolemia Benign essential hypertension Chronic tophaceous gout Surgical History History of lung surgery History of left knee replacement Family History Mother Diabetes Arthritis Father Gout Social History Housing: House Alcohol intake: current Alcohol intake frequency: holidays/special occasions only Alcohol type: beer Patient Tobacco Use Status: Current everyday Tobacco user Cigarettes Per Day: 5 e-Cigarette/Vaping Use: Never Used Second Hand Smoke Exposure: Yes service: No Current occupational status: disabled 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
[2023-07-12 14:04] VITALS: BP 132/60; PULSE 111; O2SAT 97; BMI 37.7
--- NOTE | 2023-07-12 14:04 | A.OFFVIS_ITS ---
Vital Signs 07/12/23 14:04 Height 5 ft 10 in Weight 262 lb 12.656 oz BMI 37.7 BP 132/60 Blood Pressure Location Rt brachial Position Sitting Pulse 111 H Pulse Source Pulse Oximeter Pulse Oximetry (%) 97 Oxygen Delivery Method Room Air Intake Visit Reasons: Gout Intake Note: Patient last seen 04/26/23 presents today for follow up and test results. External labs scanned in Pt c/o increased joint pain and muscle spasms. Advertising Analyst Required: No Accompanied by: Self / Same As Patient Allergies codeine Allergy (Mild, Verified 07/12/23 14:12) Itching gabapentin Allergy (Mild, Verified 07/12/23 14:12) Rash mushroom Allergy (Mild, Verified 07/12/23 14:12) Vomiting nortriptyline Allergy (Mild, Verified 07/12/23 14:12) Nightmare mushrooms Allergy (Mild, Uncoded 07/12/23 14:12) Vomiting Medication List - Last Reconciled 07/12/23 by Darren Mixon MD albuterol sulfate 90 mcg/actuation (Ventolin HFA) 2 puffs PO PRN amitriptyline 100 mg PO DAILY atorvastatin 20 mg PO DAILY colchicine 0.3 mg PO DAILY PRN cyclobenzaprine 5 mg PO TID PRN diphenhydramine HCl mg PO folic acid 1 mg PO DAILY glycopyrrolate 2 mg PO Q8H hydrocortisone 2.5% topical hydroxyzine HCl 25 mg PO TID PRN 30 days ketoconazole 2% 1 appl topical Krystexxa (pegloticase) 8 mg IV Q2W NS methotrexate sodium 15 mg (6 x 2.5 mg) PO QWEEK metoprolol succinate ER 25 mg PO DAILY nystatin 1 appl topical TID 10 days sodium chloride 0.9 % (flush) (BD PosiFlush Normal Saline 0.9 % injection syringe) mL IV HPI Comments Details: 58-year-old male with chronic tophaceous gout returns for follow-up. He is on the Krystexxa regularly. Believes that the infusions are working great. No side effects or infusion reactions related to Krystexxa. Takes colchicine 0.3 mg every 3-4 days. On methotrexate 15 mg once weekly folic acid 1 mg daily. Not on allopurinol. States that he has been having some low back spasms recently as he was moving furniture at home. Initial history: This is a 57-year-old male with chronic tophaceous gout who presents for gout evaluation. Patient states that he has had gout since age 14. Has been on numerous medicines including allopurinol, Uloric, colchicine, probenecid. Most recently he was evaluated by other sports official and started on Krystexxa in the fall of 2021 and his last Krystexxa infusion was early January of 2023. States that he has done quite well on Krystexxa with very few gout flare-ups. States that the tophi on his fingers and toes have reduced in size on Krystexxa. He has been taking colchicine 0.3 mg daily. States that colchicine 0.6 mg Twice daily causes diarrhea. 0.6 mg daily is well tolerated. He was on methotrexate while on Krystexxa but not anymore. While on Krystexxa his uric acid level was undetectable. He states that he had numerous kidney stones over the years Patient states that he feels a little worse now that he is off Krystexxa. [facility] Medical History Anxiety Chronic kidney disease (CKD), stage III (moderate) Diabetes mellitus Obesity (BMI 30-39.9) Smoker COPD (chronic obstructive pulmonary disease) Pure hypercholesterolemia Benign essential hypertension Chronic tophaceous gout Surgical History History of lung surgery History of left knee replacement Family History Mother Diabetes Arthritis Father Gout Social History Housing: House Alcohol intake: current Alcohol intake frequency: holidays/special occasions only Alcohol type: beer Patient Tobacco Use Status: Current everyday Tobacco user Cigarettes Per Day: 5 e-Cigarette/Vaping Use: Never Used Second Hand Smoke Exposure: Yes service: No Current occupational status: disabled 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 Cognitive needs: No Hearing needs: No Vision needs: No Review of Systems Musc Reports back pain, Reports arthralgias and Reports stiffness Physical Exam Vital Signs: Last Vital Signs Pulse 111 H 07/12/23 14:04 BP 132/60 07/12/23 14:04 Pulse Ox 97 07/12/23 14:04 Oxygen Delivery Method Room Air 07/12/23 14:04 BMI result Body Mass Index 37.7 Const General: cooperative, healthy appearing and comfortable Nutritional Appearance: obese morbidly obese Orientation/consciousness: patient oriented x3 Limitations: no limitations HEENT Head: Yes normocephalic and Yes atraumatic Mouth: moist mucous membranes Resp Effort & Inspection: normal respiratory effort and able to speak in complete sentences Cardio Rate: regular rate Rhythm: regular rhythm GI Inspection: No distended Palpation (GI): Soft to palpation and nontender Skin General skin exam: no rashes or lesions noted Neuro General: patient oriented x3 Extrem Other: Large tophi on the extensor aspect of both elbows. Tophi getting smaller on elbows. Bilateral elbow contracture. Few tophi on fingers and toes No active synovitis today Bilateral thoracic and upper lumbar paraspinal muscle tenderness Assessment & Plan Assessment & Plan (1) Chronic tophaceous gout: Comment: dx at age 14 Numerous medications including allopurinol, Uloric, probenecid, colchicine Krystexxa started fall- until 01/2023 with reduction of tophi size. uric acid level increased from undetectable to 12.3 1 month after Krystexxa was stopped Krystexxa restarted 03/2023 effective Code(s): M1A.9XX1 - Chronic gout, unspecified, with tophus (tophi) Category: Medical Plan: This is a 57-year-old male with chronic tophaceous gout who presents for follow- up. his gout was diagnosed at age 14, complicated by kidney stones. He is on Krystexxa regularly every 2 weeks. Doing well overall. Gout well controlled. 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 Flexeril prescribed Plan I spent 27 minutes reviewing patient's chart, evaluating patient, ordering diagnostic workup, counseling patient and documenting in the chart Medications: Changed From cyclobenzaprine 5 mg PO TID PRN 30 tabs 0RF muscle spasms 10 days To cyclobenzaprine 5 mg PO TID PRN 30 tabs 1RF muscle spasms Coding Level of Care Code Est Pt Level 4 (53479) Diagnoses Chronic tophaceous gout M1A.9XX1 [facility] methotrexate user Z79.631 Back muscle spasm M62.830
== END 2023-07-12 14:24 | disposition home or self-care (01) ==
PROVIDERS: PCP Internal Medicine; Visit Provider Student in an Organized Health Care Education/Training Program
DX: M1A.9XX1 Chronic gout, unspecified, with tophus (tophi) (principal); Z79.631 Long term (current) use of antimetabolite agent; M62.830 Muscle spasm of back
CPT/HCPCS: 99214

== ENCOUNTER → 2023-07-12 14:01 | Outpatient (BNVA) | payer MEDICARE, MEDICAID, SELFPAY | PROVIDERS: PCP Internal Medicine; Visit Provider Student in an Organized Health Care Education/Training Program | DX: M1A.9XX1 Chronic gout, unspecified, with tophus (tophi) (principal); M62.830 Muscle spasm of back; Z79.631 Long term (current) use of antimetabolite agent | CPT/HCPCS: 99212 ==

== ENCOUNTER 2023-11-06 13:46 | Outpatient (AMB) | payer MEDICARE, MEDICAID, SELFPAY ==
--- NOTE | 2023-11-06 13:47 | A.OFFVIS_ITS ---
Vital Signs 11/06/23 13:51 Height 5 ft 10 in Weight 265 lb 14.04 oz BMI 38.1 BP 124/70 Blood Pressure Location Rt brachial Position Sitting Pulse 83 Pulse Source Pulse Oximeter Pulse Oximetry (%) 96 Oxygen Delivery Method Room Air Intake Visit Reasons: Gout Intake Note: Presents for Gout. Allergies codeine Allergy (Mild, Verified 11/06/23 13:50) Itching gabapentin Allergy (Mild, Verified 11/06/23 13:50) Rash mushroom Allergy (Mild, Verified 11/06/23 13:50) Vomiting nortriptyline Allergy (Mild, Verified 11/06/23 13:50) Nightmare mushrooms Allergy (Mild, Uncoded 07/12/23 14:12) Vomiting Medication List - Last Reconciled 11/06/23 by Darren Mixon MD albuterol sulfate 90 mcg/actuation (Ventolin HFA) 2 puffs PO PRN amitriptyline 100 mg PO DAILY atorvastatin 20 mg PO DAILY colchicine 0.3 mg PO DAILY PRN cyclobenzaprine 5 mg PO TID PRN diphenhydramine HCl mg PO folic acid 1 mg PO DAILY glycopyrrolate 2 mg PO Q8H hydrocortisone 2.5% topical hydroxyzine HCl 25 mg PO TID PRN 30 days ketoconazole 2% 1 appl topical Krystexxa (pegloticase) 8 mg IV Q2W NS methotrexate sodium 15 mg (6 x 2.5 mg) PO QWEEK metoprolol succinate ER 25 mg PO DAILY nystatin 1 appl topical TID 10 days sodium chloride 0.9 % (flush) (BD PosiFlush Normal Saline 0.9 % injection syringe) mL IV HPI Comments Details: 58-year-old male with chronic tophaceous gout returns for follow-up. He is on the Krystexxa regularly. Believes that the infusions are working great. No side effects or infusion reactions related to Krystexxa. Takes colchicine 0.3 mg as needed for flare-ups which are quite rare On methotrexate 15 mg once weekly folic acid 1 mg daily. Initial history: This is a 57-year-old male with chronic tophaceous gout who presents for gout evaluation. Patient states that he has had gout since age 14. Has been on numerous medicin es including allopurinol, Uloric, colchicine, probenecid. Most recently he was evaluated by web analytics developer and started on Krystexxa in the fall of 2021 and his last Krystexxa infusion was early January of 2023. States that he has done quite well on Krystexxa with very few gout flare-ups. States that the tophi on his fingers and toes have reduced in size on Krystexxa. He has been taking colchicine 0.3 mg daily. States that colchicine 0.6 mg Twice daily causes diarrhea. 0.6 mg daily is well tolerated. He was on methotrexate while on Krystexxa but not anymore. While on Krystexxa his uric acid level was undetectable. He states that he had numerous kidney stones over the years Patient states that he feels a little worse now that he is off Krystexxa. [facility] Medical History Anxiety Chronic kidney disease (CKD), stage III (moderate) Diabetes mellitus Obesity (BMI 30-39.9) Smoker COPD (chronic obstructive pulmonary disease) Pure hypercholesterolemia Benign essential hypertension Chronic tophaceous gout Surgical History History of lung surgery History of left knee replacement Family History Mother Diabetes Arthritis Father Gout Social History Housing: House Alcohol intake: current Alcohol intake frequency: holidays/special occasions only Alcohol type: beer Patient Tobacco Use Status: Current everyday Tobacco user Cigarettes Per Day: 5 e-Cigarette/Vaping Use: Never Used Second Hand Smoke Exposure: Yes service: No Current occupational status: disabled 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 Cognitive needs: No Hearing needs: No Vision needs: No Review of Systems Musc Reports arthralgias Physical Exam Vital Signs: Last Vital Signs Pulse 83 11/06/23 13:51 BP 124/70 11/06/23 13:51 Pulse Ox 96 11/06/23 13:51 Oxygen Delivery Method Room Air 11/06/23 13:51 BMI result Body Mass Index 38.1 Const General: cooperative, healthy appearing and comfortable Nutritional Appearance: obese morbidly obese Orientation/consciousness: patient oriented x3 Limitations: no limitations HEENT Head: Yes normocephalic and Yes atraumatic Mouth: moist mucous membranes Resp Effort & Inspection: normal respiratory effort and able to speak in complete sentences Auscultation: wheezes expiratory wheezes Cardio Rate: regular rate Rhythm: regular rhythm GI Inspection: No distended Palpation (GI): Soft to palpation and nontender Skin General skin exam: no rashes or lesions noted Neuro General: patient oriented x3 Extrem Other: Large tophi on the extensor aspect of both elbows. Tophi getting smaller on elbows. Bilateral elbow contracture. Few tophi on fingers and toes No active synovitis today Bilateral thoracic and upper lumbar paraspinal muscle tenderness Assessment & Plan Assessment & Plan (1) Chronic tophaceous gout: Comment: dx at age 14 Numerous medications including allopurinol, Uloric, probenecid, colchicine Krystexxa started fall- until 01/2023 with reduction of tophi size. uric acid level increased from undetectable to 12.3 1 month after Krystexxa was stopped Krystexxa restarted 03/2023 effective Code(s): M1A.9XX1 - Chronic gout, unspecified, with tophus (tophi) Category: Medical Plan: This is a 58-year-old male with chronic tophaceous gout who presents for follow- up. his gout was diagnosed at age 14, complicated by kidney stones. He is on Krystexxa regularly every 2 weeks. Doing well overall. Gout well controlled. Rarely uses 0.3 mg of colchicine Continue with Krystexxa infusions Continue with methotrexate 15 mg weekly plus folic acid 1 mg daily Colchicine 0.3 mg as needed for flare-ups Uric acid level to be checked within 48 hours before Krystexxa infusions Safety labs for methotrexate every 8-12 weeks Patient states that his infusion nurse will be going away in December, he was asking whether 1 or 2 infusions can be skipped she is away advised patient that I strongly recommend against skipping the Krystexxa infusions as there is a risk of allergic reaction. 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
[2023-11-06 13:51] VITALS: BP 124/70; PULSE 83; O2SAT 96; BMI 38.1
== END 2023-11-06 14:08 | disposition home or self-care (01) ==
PROVIDERS: PCP Internal Medicine; Visit Provider Student in an Organized Health Care Education/Training Program
DX: M1A.9XX1 Chronic gout, unspecified, with tophus (tophi) (principal); Z79.631 Long term (current) use of antimetabolite agent
CPT/HCPCS: 99214

== ENCOUNTER → 2023-11-06 13:46 | Outpatient (BNVA) | payer MEDICARE, MEDICAID, SELFPAY | PROVIDERS: PCP Internal Medicine; Visit Provider Student in an Organized Health Care Education/Training Program | DX: M1A.9XX1 Chronic gout, unspecified, with tophus (tophi) (principal); Z79.631 Long term (current) use of antimetabolite agent | CPT/HCPCS: 99212 ==

== ENCOUNTER 2023-11-30 15:05 | Outpatient (AMB) | payer MEDICARE, MEDICAID, SELFPAY ==
--- NOTE | 2023-11-30 15:13 | MHC.PC.OV ---
Vital Signs 11/30/23 15:14 Height 5 ft 10 in Weight 253 lb 4 oz BMI 36.3 BP 110/66 Blood Pressure Location Lt brachial Position Sitting Pulse 86 Pulse Source Pulse Oximeter Pulse Oximetry (%) 96 Oxygen Delivery Method Room Air Intake Visit Reasons: Follow Up - see comments Intake Note: Patient is here to follow up on CKD, DM, COPD, HTN. 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 Burner Beehive Kiln: Not Required per policy Accompanied by: Self / Same As Patient Allergies codeine Allergy (Mild, Verified 11/30/23 15:29) Itching gabapentin Allergy (Mild, Verified 11/30/23 15:29) Rash mushroom Allergy (Mild, Verified 11/30/23 15:29) Vomiting nortriptyline Allergy (Mild, Verified 11/30/23 15:29) Nightmare mushrooms Allergy (Mild, Uncoded 11/30/23 15:29) Vomiting Medication List - Last Reconciled 11/30/23 by Flakito Wign MD albuterol sulfate 90 mcg/actuation (Ventolin HFA) 2 puffs PO PRN amitriptyline 100 mg PO DAILY atorvastatin 20 mg PO DAILY colchicine 0.3 mg PO DAILY PRN cyclobenzaprine 5 mg PO TID PRN diphenhydramine HCl mg PO folic acid 1 mg PO DAILY glycopyrrolate 2 mg PO Q8H hydrocortisone 2.5% topical hydroxyzine HCl 25 mg PO TID PRN 30 days ketoconazole 2% 1 appl topical Krystexxa (pegloticase) 8 mg IV Q2W NS methotrexate sodium 15 mg (6 x 2.5 mg) PO QWEEK metoprolol succinate ER 25 mg PO DAILY nystatin 1 appl topical TID 10 days sodium chloride 0.9 % (flush) (BD PosiFlush Normal Saline 0.9 % injection syringe) mL IV Tobacco use date assessed: 11/30/23 Dental Screening Dental Screen Date: 05/01/23 HPI Follow Up - see comments HPI Details Patient comes in today for his follow up visit States that he feels okay He is currently on Methotrexate and Krystexxa for gout and states that his gout has been well-controlled on his Rx so far, and that he has not had any significant gout flare up in a few months now He denies any headaches or dizziness Denies any chest pains, no SOB No nausea/vomiting, no abdominal pain No change in bowel habits noted PFSH Medical History Anxiety Chronic kidney disease (CKD), stage III (moderate) Diabetes mellitus Obesity (BMI 30-39.9) Smoker COPD (chronic obstructive pulmonary disease) Pure hypercholesterolemia Benign essential hypertension Chronic tophaceous gout Surgical History History of lung surgery History of left knee replacement Family History Mother Diabetes Arthritis Father Gout Social History Housing: House Alcohol intake: current Alcohol intake frequency: holidays/special occasions only Alcohol type: beer Patient Tobacco Use Status: Current everyday Tobacco user Tobacco use type: Cigarette Cigarette Packs Per Day: 0.5 Cigarettes Per Day: 10 e-Cigarette/Vaping Use: Never Used Second Hand Smoke Exposure: Yes service: No Current occupational status: disabled 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 Manuel Fox, Marlen Resendiz, Maco Wood and colleagues, with an educational poli from [employer]. Review of Systems Const Denies chills, Reports fatigue, Denies fever(s) and Denies headache(s) ENT Denies dysphagia, Denies dizziness, Denies otalgia, Denies headache(s), Denies neck pain, Denies odynophagia and Denies sore throat Card Denies chest pain, Denies rapid heart rate, Denies palpitations and Denies dyspnea Resp Denies chest congestion, Denies cough, Denies dyspnea and Denies wheezing GI Denies abdominal pain, Denies constipation, Denies dysphagia, Denies heartburn, Denies diarrhea, Denies nausea, Denies odynophagia and Denies vomiting Denies dysuria, Denies nocturia and Denies urinary frequency Musc Details: (+) multiple joint deformities, especially of the fingers on both hands, due to chronic tophaceous gout; (+) occasional pain over his left wrist and left arm (had wrist fracture and underwent surgery a few months ago) Denies back pain, Reports arthralgias (chronic - involving multiple joints especially of his fingers), Reports limited range of motion and Denies neck pain Skin/Breast Denies rash Neuro Denies dizziness and Denies headache(s) Psych Reports anxiety Endo Reports fatigue and Denies palpitations Aller/Immun Denies wheezing Physical exam (Primary Care) Vital Signs: Last Vital Signs Pulse 86 11/30/23 15:14 BP 110/66 11/30/23 15:14 Pulse Ox 96 11/30/23 15:14 Oxygen Delivery Method Room Air 11/30/23 15:14 BMI result Body Mass Index 36.3 Tobacco/Smoking Status: Tobacco use Status Tobacco use date assessed 11/30/23 11/30/23 15:22 Patient Tobacco Use Status Current everyday Tobacco 11/30/23 15:22 Tobacco use type Cigarette 11/30/23 15:22 e-Cigarette/Vaping Use Never Used 11/30/23 15:22 Thrive Assessment: Date of Thrive Assessment Date Thrive assessed 05/01/23 11/30/23 15:22 Const General: no acute distress and alert HENMT Ears: TM's normal bilaterally and EAC's normal Throat: Yes posterior oropharynx normal and Yes tonsils normal (no TP congestion noted) Neck Neck: Yes no lymphadenopathy and Yes supple Thyroid: Thyroid normal Resp Auscultation: clear to auscultation bilaterally, no rales and no wheezes Cardio Rate: regular rate Rhythm: regular rhythm Heart sounds: no murmurs GI Palpation (GI): Soft to palpation and nontender Auscultation: normal bowel sounds General: Yes no CVA tenderness Back/Spine/Pelvis Back: no CVA tenderness Thoracic/Lumbar Spine: No lumbar spinal tenderness Extrem Other: (+) multiple joint deformities and tenderness, involving multiple fingers on both hands (with swelling/enlargement of IPs), ankles and knees General: Yes no clubbing, cyanosis or edema Results AMB Hemoglobin A1c AMB Hemoglobin A1c 5.5 % Last Edit by LEEANNA Wray on 11/30/23 15:27 Results Reviewed Results Reviewed: Laboratory Last Values Hgb A1c (Clinic) 5.5 % (4.0-6.0) 11/30/23 15:12 Coding Level of Care Code Est Pt Level 4 (56181) Diagnoses Chronic tophaceous gout M1A.9XX1 Pure hypercholesterolemia E78.00 Benign essential hypertension I10 Type 2 diabetes mellitus without complication, without long-term current use of insulin E11.9 Diabetes mellitus type: type 2 Diabetes mellitus halfway insulin use: without halfway use Diabetes mellitus complication status: without complication Stage 3a chronic kidney disease N18.31 Chronic kidney disease stage 3 subtype: stage 3a (GFR 45-59) Chronic obstructive pulmonary disease, unspecified COPD type J44.9 COPD type: unspecified COPD Anxiety F41.9 Smoker F17.200 Obesity (BMI 30-39.9) E66.9 Assessment & Plan Assessment & Plan (1) Chronic tophaceous gout: Comment: dx at age 14 Numerous medications including allopurinol, Uloric, probenecid, colchicine Krystexxa started fall of 2021- until 01/2023 with reduction of tophi size. uric acid level increased from undetectable to 12.3 1 month after Krystexxa was stopped Krystexxa restarted 03/2023 effective Code(s): M1A.9XX1 - Chronic gout, unspecified, with tophus (tophi) Category: Medical Plan: Reinforced low purine diet Continue Methotrexate 15 mg once a week and Krystexxa 8 mg IV every 2 weeks Patient states that he's had no significant gout flare ups for several months now Follow up with [facility] Rheumatology as scheduled (2) Pure hypercholesterolemia: Code(s): E78.00 - Pure hypercholesterolemia, unspecified Category: Medical Plan: Reinforced low cholesterol diet Patient has no follow up labs done recently Continue Atorvastatin 20 mg QD Will recheck his labs and fasting lipids in 4 months for follow up (3) Benign essential hypertension: Code(s): I10 - Essential (primary) hypertension Category: Medical Plan: Reinforced low sodium diet - goal is systolic BP of 120 to 130 mm or less Continue Metoprolol ER 25 mg QD (4) Diabetes mellitus: Code(s): E11.9 - Type 2 diabetes mellitus without complications Category: Medical Qualifiers: Diabetes mellitus type: type 2 Diabetes mellitus halfway insulin use: without terminal operations manager use Diabetes mellitus complication status: without complication Qualified Code(s): E11.9 - Type 2 diabetes mellitus without complications Plan: His HgbA1c today is at 5.5% (his HgbA1c was at 5.7% when last checked in February 2023) - goal is at ideally <6.5% Reinforced diabetic diet Patient is currently still on NO Rx for diabetes and is just maintaining/controlling his diabetes with diet modification alone (5) Chronic kidney disease (CKD), stage III (moderate): Code(s): N18.30 - Chronic kidney disease, stage 3 unspecified Category: Medical Qualifiers: Chronic kidney disease stage 3 subtype: stage 3a (GFR 45-59) Qualified Code(s): N18.31 - Chronic kidney disease, stage 3a Plan: His CKD is most likely multifactorial, including due to his HTN and DM as well as his significantly elevated uric acid burden and intractable gout for years Reinforced adequate hydration Follow up with nephrology (Dr. Hunt) as scheduled (6) COPD (chronic obstructive pulmonary disease): Code(s): J44.9 - Chronic obstructive pulmonary disease, unspecified Category: Medical Qualifiers: COPD type: unspecified COPD Qualified Code(s): J44.9 - Chronic obstructive pulmonary disease, unspecified Plan: Stable/controlled Continue Albuterol HFA 2 inhalations every 6 hours as needed (7) Anxiety: Code(s): F41.9 - Anxiety disorder, unspecified Category: Medical Plan: Continue Hydroxyzine 25 mg TID PRN (8) Smoker: Code(s): F17.200 - Nicotine dependence, unspecified, uncomplicated Category: Social Hx Plan: Counseled again on smoking cessation (9) Obesity (BMI 30-39.9): Code(s): E66.9 - Obesity, unspecified Category: Medical Plan: Reinforced diet and weight loss; exercise does not appear to be a realistic option due to patient's joint deformities and chronic joint pains Plan Follow up in 4 months Orders: Orders Comprehensive [place]. Panel Fast 4 Months E78.00 - Pure hypercholesterolemia, unspecified UA CC w/rflx Micro + Cult 4 Months R30.0 - Dysuria Uric Acid 4 Months M10.9 - Gout, unspecified AMB Hemoglobin A1c 11/30/23 E11.9 - Type 2 diabetes mellitus without complications Complete Blood Count Auto Diff 4 Months D64.9 - Anemia, unspecified Lipid Panel 4 Months E78.00 - Pure hypercholesterolemia, unspecified TSH reflex Free T4 4 Months E78.00 - Pure hypercholesterolemia, unspecified Vitamin D 25-OH Total 4 Months E55.9 - Vitamin D deficiency, unspecified
[2023-11-30 15:14] VITALS: BP 110/66; PULSE 86; O2SAT 96; BMI 36.3
== END 2023-11-30 15:43 | disposition home or self-care (01) ==
PROVIDERS: PCP Internal Medicine; Visit Provider Internal Medicine
DX: I12.9 Hypertensive chronic kidney disease with stage 1 through stage 4 chronic kidney disease, or unspecified chronic kidney disease (principal); E11.22 Type 2 diabetes mellitus with diabetic chronic kidney disease; N18.31 Chronic kidney disease, stage 3a; J44.9 Chronic obstructive pulmonary disease, unspecified; M1A.9XX1 Chronic gout, unspecified, with tophus (tophi); E78.00 Pure hypercholesterolemia, unspecified; F41.9 Anxiety disorder, unspecified; F17.200 Nicotine dependence, unspecified, uncomplicated; E66.9 Obesity, unspecified

== ENCOUNTER → 2023-11-30 15:05 | Outpatient (BNVA) | payer MEDICARE, MEDICAID, SELFPAY | PROVIDERS: PCP Internal Medicine; Visit Provider Internal Medicine | DX: M1A.9XX1 Chronic gout, unspecified, with tophus (tophi) (principal); E78.00 Pure hypercholesterolemia, unspecified; I12.9 Hypertensive chronic kidney disease with stage 1 through stage 4 chronic kidney disease, or unspecified chronic kidney disease; E11.22 Type 2 diabetes mellitus with diabetic chronic kidney disease; N18.31 Chronic kidney disease, stage 3a; F41.9 Anxiety disorder, unspecified; E66.9 Obesity, unspecified; F17.200 Nicotine dependence, unspecified, uncomplicated; Z71.6 Tobacco abuse counseling | CPT/HCPCS: 83036; 99212 ==

== ENCOUNTER 2024-03-03 14:10 | Outpatient (AMB) | payer MEDICARE, MEDICAID, SELFPAY ==
[2024-03-03 14:25] VITALS: BP 138/70; PULSE 89; O2SAT 97; BMI 36.3
--- NOTE | 2024-03-03 14:25 | A.OFFVIS_ITS ---
Vital Signs 03/03/24 14:25 Height 5 ft 10 in Weight 252 lb 13.923 oz BMI 36.3 BP 138/70 Blood Pressure Location Lt brachial Position Sitting Pulse 89 Pulse Source Pulse Oximeter Pulse Oximetry (%) 97 Oxygen Delivery Method Room Air Intake Visit Reasons: Gout Intake Note: Patient last seen by Doctor Darren Mixon on 11/06/23. Presents today for Gout follow. Patient states he is suffering from migraines for weeks, about 3. Allergies codeine Allergy (Mild, Verified 03/03/24 14:27) Itching gabapentin Allergy (Mild, Verified 03/03/24 14:27) Rash mushroom Allergy (Mild, Verified 03/03/24 14:27) Vomiting nortriptyline Allergy (Mild, Verified 03/03/24 14:27) Nightmare mushrooms Allergy (Mild, Uncoded 03/03/24 14:27) Vomiting HPI Comments Details: 58-year-old male with chronic tophaceous gout returns for follow-up. He is on the Krystexxa regularly. Believes that the infusions are working great. No side effects or infusion reactions related to Krystexxa. Takes colchicine 0.3 mg as needed for flare-ups which are quite rare On methotrexate 15 mg once weekly folic acid 1 mg daily. Has been under plenty of stress recently and has been getting migraines. Requesting hydroxyzine refill for anxiety Initial history: This is a 57-year-old male with chronic tophaceous gout who presents for gout evaluation. Patient states that he has had gout since age 14. Has been on numerous medicines including allopurinol, Uloric, colchicine, probenecid. Most recently he was evaluated by human relations professor and started on Krystexxa in the fall of 2021 and his last Krystexxa infusion was early January of 2023. States that he has done quite well on Krystexxa with very few gout flare-ups. States that the tophi on his fingers and toes have reduced in size on Krystexxa. He has been taking colchicine 0.3 mg daily. States that colchicine 0.6 mg Twice daily causes diarrhea. 0.6 mg daily is well tolerated. He was on methotrexate while on Krystexxa but not anymore. While on Krystexxa his uric acid level was undetectable. He states that he had numerous kidney stones over the years Patient states that he feels a little worse now that he is off Krystexxa. [facility] Medical History Anxiety Chronic kidney disease (CKD), stage III (moderate) Diabetes mellitus Obesity (BMI 30-39.9) Smoker COPD (chronic obstructive pulmonary disease) Pure hypercholesterolemia Benign essential hypertension Chronic tophaceous gout Surgical History History of lung surgery History of left knee replacement Family History Mother Diabetes Arthritis Father Gout Social History Housing: House Alcohol intake: current Alcohol intake frequency: holidays/special occasions only Alcohol type: beer Patient Tobacco Use Status: Current everyday Tobacco user Tobacco use type: Cigarette Cigarette Packs Per Day: 0.5 Cigarettes Per Day: 10 e-Cigarette/Vaping Use: Never Used Second Hand Smoke Exposure: Yes service: No Current occupational status: disabled 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 Cognitive needs: No Hearing needs: No Vision needs: No Review of Systems Const Reports headache(s) ENT Reports headache(s) Neuro Reports headache(s) Psych Reports abnormal sleep pattern and Reports anxiety Physical Exam Vital Signs: Last Vital Signs Pulse 89 03/03/24 14:25 BP 138/70 03/03/24 14:25 Pulse Ox 97 03/03/24 14:25 Oxygen Delivery Method Room Air 03/03/24 14:25 BMI result Body Mass Index 36.3 Const General: cooperative, healthy appearing and comfortable Nutritional Appearance: obese morbidly obese Orientation/consciousness: patient oriented x3 Limitations: no limitations HEENT Head: Yes normocephalic and Yes atraumatic Mouth: moist mucous membranes Resp Effort & Inspection: normal respiratory effort and able to speak in complete sentences Cardio Rate: regular rate Rhythm: regular rhythm GI Inspection: No distended Palpation (GI): Soft to palpation and nontender Skin General skin exam: no rashes or lesions noted Neuro General: patient oriented x3 Extrem Other: Gouty tophi on right elbow significantly improved, still has relatively sizable tophi on the left elbow, tophi in general are getting smaller. Bilateral elbow contracture. Few tophi on fingers and toes No active synovitis today Assessment & Plan Assessment & Plan (1) Chronic tophaceous gout: Comment: dx at age 14 Numerous medications including allopurinol, Uloric, probenecid, colchicine Krystexxa started fall- until 01/2023 with reduction of tophi size. uric acid level increased from undetectable to 12.3 1 month after Krystexxa was stopped Krystexxa restarted 03/2023 effective Code(s): M1A.9XX1 - Chronic gout, unspecified, with tophus (tophi) Category: Medical Plan: This is a 58-year-old male with chronic tophaceous gout who presents for follow- up. his gout was diagnosed at age 14, complicated by kidney stones. He is on Krystexxa regularly every 2 weeks. Doing well overall. Gout well controlled. 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 Advised patient to stay away from alcohol use (3) Anxiety: Code(s): F41.9 - Anxiety disorder, unspecified Category: Medical Plan: Has been more stress lately, requesting hydroxyzine refill. He was on it in the past. Refilled. Advised patient to request further refills from PCP (4) Headache: Code(s): R51.9 - Headache, unspecified Category: Medical Qualifiers: Headache type: post-traumatic Headache chronicity pattern: acute headache Intractability: not intractable Qualified Code(s): G44.319 - Acute post-traumatic headache, not intractable Plan: Follow-up with PCP Plan I spent 27 minutes reviewing patient's chart, evaluating patient, ordering diagnostic workup, counseling patient and documenting in the chart Medications: Refilled hydroxyzine HCl May cause drowsiness 25 mg PO TID 30 days PRN 90 tabs 0RF anxiety Coding Level of Care Code Est Pt Level 4 (46720) Complex EM visit Add On G2211 Diagnoses Chronic tophaceous gout M1A.9XX1 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
== END 2024-03-03 14:51 | disposition home or self-care (01) ==
PROVIDERS: PCP Internal Medicine; Visit Provider Student in an Organized Health Care Education/Training Program
DX: M1A.9XX1 Chronic gout, unspecified, with tophus (tophi) (principal); Z79.631 Long term (current) use of antimetabolite agent; F41.9 Anxiety disorder, unspecified; G44.319 Acute post-traumatic headache, not intractable
CPT/HCPCS: 99214; G2211

== ENCOUNTER → 2024-03-03 14:10 | Outpatient (BNVA) | payer MEDICARE, MEDICAID, SELFPAY | PROVIDERS: PCP Internal Medicine; Visit Provider Student in an Organized Health Care Education/Training Program | DX: M1A.9XX1 Chronic gout, unspecified, with tophus (tophi) (principal); G44.319 Acute post-traumatic headache, not intractable; F41.9 Anxiety disorder, unspecified; Z79.631 Long term (current) use of antimetabolite agent | CPT/HCPCS: 99212 ==

== ENCOUNTER 2024-04-01 15:20 | Outpatient (AMB) | payer MEDICARE, MEDICAID, SELFPAY ==
--- OUTSIDE RECORDS SUMMARY | 2024-04-01 15:22 | XMS_ITS | Clinical Summary ---
Author Organization [facility] Address [address] [place] [address] Phone Care Team Providers Care Business Support Manager Name Role Phone Flakito Wing MD Primary Care Provider [phone] Allergies Active Allergy Reactions Criticality Noted Date Comments Codeine Itching 11/01/2021 Gabapentin Rash Low 11/01/2021 Nortriptyline 11/01/2021 nightmare Other Vomiting 11/01/2021 mushroom Medications amLODIPine (NORVASC) 10 MG tablet Take 10 mg by mouth 1 (one) time each day Active atorvastatin (LIPITOR) 20 MG tablet Take 20 mg by mouth 1 (one) time each day Active cyclobenzaprine (FLEXERIL) 10 MG tablet Take 10 mg by mouth every night Active Melatonin 1 MG capsule Take 1-3 mg by mouth at night if needed Active metoprolol succinate XL (TOPROL XL) 25 MG 24 hr tablet Take 25 mg by mouth 1 (one) time each day Do not crush or chew. Active hydrOXYzine (ATARAX) 25 MG tablet Take 25 mg by mouth 3 (three) times a day if needed 10/03/2021 Active metFORMIN XR (GLUCOPHAGE-XR) 500 MG 24 hr tablet Take 500 mg by mouth 1 (one) time each day with dinner Do not crush, chew, or split. Active Pegloticase (KRYSTEXXA IV) Infuse 8 mg into a venous catheter every 14 (fourteen) days Active Cholecalciferol (Vitamin D3) 50 MCG (1999) tablet Take 1 tablet by mouth daily 90 tablet 3 05/11/2022 Active Hospital, Clinic, or Other Facility Administered Medication Ordered Dose Route Frequency Start Date End Date Status sodium chloride 0.9 % infusionIndications:Gout, not otherwise specified 250 mL/hr IV Once 06/08/2022 Activ e Active Problems Problem Noted Date Diagnosed Date Obstructive sleep apnea syndrome 05/11/2022 Gout, not otherwise specified 11/02/2021 Hypertension 11/02/2021 Stage 3a chronic kidney disease 11/01/2021 Tobacco user 03/29/2017 Overview (05/11/2022): Last Assessment & Plan: patient states he smokes 5-6 cigarettes per day. - nicotine patch Family History Medical History Relation Comments Gout Father Arthritis Mother Diabetes Mother Relation Status Comments Father Mother Social History Tobacco Use Types Packs/Day Years Used Date Smoking Tobacco: Every Day Cigarettes Smokeless Tobacco: Never Tobacco Cessation:Ready to Q uit: Not Asked; Counseling Given: Not Answered Alcohol Use Standard Drinks/Week Comments Yes 0 (1 standard drink = 0.6 oz pur e alcohol) ocassionally -Beer Sex and Gender Information Value Date Recorded Sex Assigned at Not on file Legal Sex Male 11:08 AM EDT Gender Identity Not on file Sexual Orientation Not on file Last Filed Vital Signs Vital Sign Reading Time Taken Comments Blood Pressure 122/78 01/24/2023 11:10 AM EST Pulse 108 01/24/2023 11:10 AM EST Temperature - - Respiratory Rate 20 01/24/2023 11:10 AM EST Oxygen Saturation 98% 01/24/2023 11:10 AM EST Inhaled Oxygen Concentration - - Weight 126 kg (276 lb 12.8 oz) 11/09/2022 10:01 AM EDT Height 177.8 cm (5' 10 ) 11/09/2022 10:01 AM EDT Body Mass Index 39.72 11/09/2022 10:01 AM EDT Plan of Treatment Health Maintenance Due Date Last Done Comments Hepatitis B Vaccine (1 of 3 - 19+ 3-dose series) 03/05 Colorectal Cancer Screening: Annual FOBT 2015 Colorectal Cancer Screening: Colonoscopy 2015 Colorectal Cancer Screening: Sigmoidoscopy 2015 Pneumococcal Vaccine: Pediat rics (0 to 5 Years) and At-Risk Patients (6 to 64 Years) (2 of 2 - PCV) 12/25/2018 12/25/2017 Influenza Vaccine (#1) 2023 Insurance [place]ICARE [place] Care Teams Business Support Manager Relationship Specialty Start Date End Date Flakito Wing MD [address] [place] [address] PCP - General Internal Medicine 06/09/21
[2024-04-01 15:26] VITALS: BP 128/86; PULSE 114; O2SAT 96; BMI 35.8
--- NOTE | 2024-04-01 15:26 | MHC.PC.OV ---
Vital Signs 04/01/24 15:26 Height 5 ft 10 in Weight 249 lb 4 oz BMI 35.8 BP 128/86 Blood Pressure Location Lt brachial Position Sitting Pulse 114 H Pulse Source Pulse Oximeter Pulse Oximetry (%) 96 Oxygen Delivery Method Room Air Intake Visit Reasons: gout, hyperlipidemia Colored Liquid Plastic Applier Required: No Accompanied by: Self / Same As Patient Allergies codeine Allergy (Mild, Verified 04/01/24 16:08) Itching gabapentin Allergy (Mild, Verified 04/01/24 16:08) Rash mushroom Allergy (Mild, Verified 04/01/24 16:08) Vomiting nortriptyline Allergy (Mild, Verified 04/01/24 16:08) Nightmare mushrooms Allergy (Mild, Uncoded 04/01/24 16:08) Vomiting Medication List - Last Reconciled 04/01/24 by Flakito Wing MD albuterol sulfate 90 mcg/actuation (Ventolin HFA) 2 puffs PO PRN amitriptyline 100 mg PO DAILY atorvastatin 20 mg PO DAILY colchicine 0.3 mg PO DAILY PRN cyclobenzaprine 5 mg PO TID PRN diphenhydramine HCl mg PO folic acid 1 mg PO DAILY hydrocortisone 2.5% topical hydroxyzine HCl 25 mg PO TID PRN 30 days ketoconazole 2% 1 appl topical Krystexxa (pegloticase) 8 mg IV Q2W NS methotrexate sodium 15 mg (6 x 2.5 mg) PO QWEEK metoprolol succinate ER 25 mg PO DAILY nystatin 1 appl topical TID 10 days sodium chloride 0.9 % (flush) (BD PosiFlush Normal Saline 0.9 % injection syringe) mL IV Tobacco use date assessed: 04/01/24 Dental Screening Dental Screen Date: 04/01/24 Did you have a dental visit in the last 12 months?: Yes Did you have a dental problem in the last 6 months where you did not have access to dental care?: No Was dental information given to patient?: Patient has dentist HPI gout, hyperlipidemia HPI Details Patient comes in today for his follow-up visit States that he feels okay He denies any headaches or dizziness Denies any chest pains, no shortness of breath No nausea/vomiting, no abdominal pain No change in bowel habits noted States that he has not had any gout attacks recently - this has improved a lot since he was started on Krystexxa He was not able to get his follow-up labs done prior to his appointment today [facility] Medical History Anxiety Chronic kidney disease (CKD), stage III (moderate) Diabetes mellitus Obesity (BMI 30-39.9) Smoker COPD (chronic obstructive pulmonary disease) Pure hypercholesterolemia Benign essential hypertension Chronic tophaceous gout Surgical History History of lung surgery History of left knee replacement Family History Mother Diabetes Arthritis Father Gout Social History Housing: House Alcohol intake: current Alcohol intake frequency: holidays/special occasions only Alcohol type: beer Patient Tobacco Use Status: Current everyday Tobacco user Tobacco use type: Cigarette Cigarette Packs Per Day: 0.5 Cigarettes Per Day: 10 e-Cigarette/Vaping Use: Never Used Second Hand Smoke Exposure: Yes service: No Current occupational status: disabled 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 1. Little interest or pleasure in doing things: not at all 2. Feeling down, depressed, or hopeless: not at all 3. Trouble falling or staying asleep, or sleeping too much: more than half the days 4. Feeling tired or having little energy: not at all 5. Poor appetite or overeating: nearly every day 6. Feeling bad about yourself - or that you are a failure or have let yourself or your family down: not at all 7. Trouble concentrating on things, such as reading the newspaper or watching television: not at all 8. Moving or speaking so slowly that other people could have noticed. Or the opposite - being so fidgety or restless that you have been moving around a lot more than usual: not at all 9. Thoughts that you would be better off or of hurting yourself in some way: not at all Total score: 5 Depression Screening Interpretation: Positive Depression Screening Follow-up: Existing condition and Follow-up Visit Requested Depression Screening Done: Yes 69243 - PHQ-9 Billing: Yes Source: Developed by Drs. Manuel Fox, Marlen Resendiz, Maco Wood and colleagues, with an educational poli from [employer]. Thrive Questionnaire Date Thrive assessed: 04/01/24 I am a: Patient What is your living situation today?: I have a steady place to live Within the past 12 months, did the food you bought not last and you didn't have the money to get more?: Never true Within the past 12 months, did you worry whether your food would run out before you got money to buy more?: Never true Do you have trouble paying for medicines?: No Do you have trouble getting transportation to medical appointments?: No Do you have trouble paying your heating and electricity bill?: No Do you have trouble taking care of your child, family member or friend?: No Do you have trouble with day-to-day activities such as bathing, preparing meals, shopping, managing finances, etc.?: No Are you currently unemployed and looking for a job?: No Are you interested in more education?: No Please select the resources that you would like help with: None Currently or been in a relationship where the following occur: No concerns reported THRIVE Score: 0 AUDIT C Alcohol Use Questionnaire (AUDIT-C) 1. How often do you have a drink containing alcohol?: Monthly or less 2. How many drinks containing alcohol do you have on a typical day when you are drinking?: 1 or 2 3. How often do you have six or more drinks on one occasion?: Never Total Score: 1 Score Reviewed/Action Taken: Yes SURAJ-7 AMB Questionnaire SURAJ-7 Date SURAJ - 7 assessed: 04/01/24 Feeling nervous, anxious, or on edge: 0 = Not at all Not being able to stop or control worryin = Not at all Worrying too much about different things: 0 = Not at all Trouble relaxin = Not at all Being so restless that it is hard to sit still: 0 = Not at all Becoming easily annoyed or irritable: 0 = Not at all Feeling afraid as if something awful might happen: 0 = Not at all Total SURAJ-7 score (0-4 normal; 5-9 mild; 10-14 moderate; 15-21 severe): 0 Source: Developed by Drs. Manuel Fox, Marlen Resendiz, Maco Wood and colleagues, with an educational poli from [employer]. Review of Systems Const Denies chills, Denies fatigue, Denies fever(s) and Denies headache(s) ENT Denies dysphagia, Denies dizziness, Denies otalgia, Denies headache(s), Denies neck pain, Denies odynophagia and Denies sore throat Card Denies chest pain, Denies rapid heart rate, Denies palpitations and Denies dyspnea Resp Denies chest congestion, Denies cough and Denies dyspnea GI Denies abdominal pain, Denies constipation, Denies dysphagia, Denies heartburn, Denies diarrhea, Denies nausea, Denies odynophagia and Denies vomiting Denies dysuria, Denies nocturia and Denies urinary frequency Musc Details: (+) multiple joint deformities, especially of the fingers on both hands, due to chronic tophaceous gout; (+) occasional pain over his left wrist and left arm (had wrist fracture and underwent surgery a few months ago) Denies back pain, Reports arthralgias (chronic - involving multiple joints especially of his fingers), Reports limited range of motion and Denies neck pain Skin/Breast Denies rash Neuro Denies dizziness and Denies headache(s) Psych Reports anxiety Endo Denies fatigue and Denies palpitations Physical exam (Primary Care) Vital Signs: Last Vital Signs Pulse 114 H 04/01/24 15:26 BP 128/86 04/01/24 15:26 Pulse Ox 96 04/01/24 15:26 Oxygen Delivery Method Room Air 04/01/24 15:26 BMI result Body Mass Index 35.8 Tobacco/Smoking Status: Tobacco use Status Tobacco use date assessed 04/01/24 04/01/24 15:28 Patient Tobacco Use Status Current everyday Tobacco 04/01/24 15:28 Tobacco use type Cigarette 04/01/24 15:28 e-Cigarette/Vaping Use Never Used 04/01/24 15:28 PHQ-9: PHQ-9 Score PHQ-9: Total score 5 04/01/24 16:19 Depression Screening Interpretation: Positive Depression Screening Follow-up: Existing condition and Follow-up Visit Requested Thrive Assessment: Date of Thrive Assessment Date Thrive assessed 04/01/24 04/01/24 15:28 Currently or been in a relationship where the following occur: No concerns reported Const General: no acute distress and alert HENMT Ears: TM's normal bilaterally and EAC's normal Throat: Yes posterior oropharynx normal and Yes tonsils normal (no TP congestion noted) Neck Neck: Yes no lymphadenopathy and Yes supple Thyroid: Thyroid normal Resp Auscultation: clear to auscultation bilaterally, no rales and no wheezes Cardio Rate: regular rate Rhythm: regular rhythm Heart sounds: no murmurs GI Palpation (GI): Soft to palpation and nontender Auscultation: normal bowel sounds General: Yes no CVA tenderness Back/Spine/Pelvis Back: no CVA tenderness Thoracic/Lumbar Spine: No lumbar spinal tenderness Extrem Other: (+) multiple joint deformities and tenderness, involving multiple fingers on both hands (with swelling/enlargement of IPs), ankles and knees General: Yes no clubbing, cyanosis or edema Coding Level of Care Code Est Pt Level 4 (67528) Diagnoses Chronic tophaceous gout M1A.9XX1 Pure hypercholesterolemia E78.00 Benign essential hypertension I10 Type 2 diabetes mellitus without complication, without long-term current use of insulin E11.9 Diabetes mellitus type: type 2 Diabetes mellitus water chemist insulin use: without usp use Diabetes mellitus complication status: without complication Stage 3a chronic kidney disease N18.31 Chronic kidney disease stage 3 subtype: stage 3a (GFR 45-59) Chronic obstructive pulmonary disease, unspecified COPD type J44.9 COPD type: unspecified COPD Anxiety F41.9 Smoker F17.200 Obesity (BMI 30-39.9) E66.9 Additional Codes PHQ-9 - 68204 - PHQ-9 Billing: Yes ([id number]) Assessment & Plan Assessment & Plan (1) Chronic tophaceous gout: Comment: dx at age 14 Numerous medications including allopurinol, Uloric, probenecid, colchicine Krystexxa started fall of 2021- until 01/2023 with reduction of tophi size. uric acid level increased from undetectable to 12.3 1 month after Krystexxa was stopped Krystexxa restarted 03/2023 effective Code(s): M1A.9XX1 - Chronic gout, unspecified, with tophus (tophi) Category: Medical Plan: Reinforced low purine diet Continue Methotrexate 15 mg once a week and Krystexxa 8 mg IV every 2 weeks Patient states that he's had no significant gout flare ups for several months now His uric acid level done a few days ago came back very low Follow [place] [facility] as scheduled (2) Pure hypercholesterolemia: Code(s): E78.00 - Pure hypercholesterolemia, unspecified Category: Medical Plan: Patient was not able to get his follow-up labs done prior to his visit today and he is instructed to get these done ZENON Reinforced low cholesterol diet Continue Atorvastatin 20 mg QD Will recheck his labs and fasting lipids in 4 months for follow up (3) Benign essential hypertension: Code(s): I10 - Essential (primary) hypertension Category: Medical Plan: Reinforced low sodium diet - goal is systolic BP of 120 to 130 mm or less Continue Metoprolol ER 25 mg QD (4) Diabetes mellitus: Code(s): E11.9 - Type 2 diabetes mellitus without complications Category: Medical Qualifiers: Diabetes mellitus type: type 2 Diabetes mellitus usp insulin use: without usp use Diabetes mellitus complication status: without complication Qualified Code(s): E11.9 - Type 2 diabetes mellitus without complications Plan: His HgbA1c was most recently at 5.5% (his HgbA1c was at 5.7% when last checked in February 2023) - goal is at ideally <6.5% Reinforced diabetic diet Patient is currently still on NO Rx for diabetes and is just maintaining/controlling his diabetes with diet modification alone (5) Chronic kidney disease (CKD), stage III (moderate): Code(s): N18.30 - Chronic kidney disease, stage 3 unspecified Category: Medical Qualifiers: Chronic kidney disease stage 3 subtype: stage 3a (GFR 45-59) Qualified Code(s): N18.31 - Chronic kidney disease, stage 3a Plan: His CKD is most likely multifactorial, including due to his HTN and DM as well as his significantly elevated uric acid burden and intractable gout for years Reinforced adequate hydration Follow up with nephrology (Dr. Hunt) as scheduled (6) COPD (chronic obstructive pulmonary disease): Code(s): J44.9 - Chronic obstructive pulmonary disease, unspecified Category: Medical Qualifiers: COPD type: unspecified COPD Qualified Code(s): J44.9 - Chronic obstructive pulmonary disease, unspecified Plan: Stable/controlled Continue Albuterol HFA 2 inhalations every 6 hours as needed (7) Anxiety: Code(s): F41.9 - Anxiety disorder, unspecified Category: Medical Plan: Continue Hydroxyzine 25 mg TID PRN (8) Smoker: Code(s): F17.200 - Nicotine dependence, unspecified, uncomplicated Category: Social Hx Plan: Counseled again on smoking cessation (9) Obesity (BMI 30-39.9): Code(s): E66.9 - Obesity, unspecified Category: Medical Plan: Reinforced diet and weight loss; exercise does not appear to be a realistic option due to patient's joint deformities and chronic joint pains Plan Follow up in 4 months Orders: Orders Hemoglobin A1c 04/01/24 E11.9 - Type 2 diabetes mellitus without complications, M25.50 - Pain in unspecified joint Microalbumin, Random (w Creat) 04/01/24 E11.9 - Type 2 diabetes mellitus without complications, M25.50 - Pain in unspecified joint C Reactive Protein 04/01/24 M25.50 - Pain in unspecified joint Erythrocyte Sedimentation Rate 04/01/24 M25.50 - Pain in unspecified joint, M79.7 - Fibromyalgia
== END 2024-04-01 16:22 | disposition home or self-care (01) ==
PROVIDERS: PCP Internal Medicine; Visit Provider Internal Medicine
DX: I12.9 Hypertensive chronic kidney disease with stage 1 through stage 4 chronic kidney disease, or unspecified chronic kidney disease (principal); N18.31 Chronic kidney disease, stage 3a; E11.22 Type 2 diabetes mellitus with diabetic chronic kidney disease; J44.9 Chronic obstructive pulmonary disease, unspecified; E78.00 Pure hypercholesterolemia, unspecified; M1A.9XX1 Chronic gout, unspecified, with tophus (tophi); F41.9 Anxiety disorder, unspecified; F17.200 Nicotine dependence, unspecified, uncomplicated; E66.9 Obesity, unspecified

== ENCOUNTER → 2024-04-01 15:20 | Outpatient (BNVA) | payer MEDICARE, MEDICAID, SELFPAY | PROVIDERS: PCP Internal Medicine; Visit Provider Internal Medicine | DX: M1A.9XX1 Chronic gout, unspecified, with tophus (tophi) (principal); E78.00 Pure hypercholesterolemia, unspecified; I12.9 Hypertensive chronic kidney disease with stage 1 through stage 4 chronic kidney disease, or unspecified chronic kidney disease; E11.22 Type 2 diabetes mellitus with diabetic chronic kidney disease; N18.31 Chronic kidney disease, stage 3a; J44.9 Chronic obstructive pulmonary disease, unspecified; F41.9 Anxiety disorder, unspecified; E66.9 Obesity, unspecified; F17.200 Nicotine dependence, unspecified, uncomplicated; Z71.6 Tobacco abuse counseling | CPT/HCPCS: 96127; 99212 ==

== ENCOUNTER 2024-07-09 13:53 | Outpatient (AMB) | payer MEDICARE, MEDICAID, SELFPAY ==
--- OUTSIDE RECORDS SUMMARY | 2024-07-09 13:56 | XMS_ITS | Clinical Summary ---
Author Organization [facility] Address [address] [place] [address] Phone Care Team Providers Care Kick Boxer Name Role Phone Flakito Wing MD Primary Care Provider [phone]- [phone] Allergies Active Allergy Reactions Criticality Noted Date [...] Colorectal Cancer Screening: Sigmoidoscopy 2015 Pneumococcal Vaccine: 50+ Years (2 of 2 - PCV) 019 12/25/2017 Influenza Vaccine (Season Ended) 2024 Pneumococcal Vaccine: Peds ( 0 to 5 Years) and At-Risk Patients (6 to 49 Years) Discontinued 12/25/2017 Insurance Medicare Medicaid [place] Care Teams Kick Boxer Relationship Specialty Start Date End Date Flakito Wing MD [address] [place] [address] PCP - General Internal Medicine 06/09/21
[2024-07-09 14:01] VITALS: BP 130/76; PULSE 103; O2SAT 97; BMI 36.0
--- NOTE | 2024-07-09 14:01 | A.OFFVIS_ITS ---
Vital Signs 07/09/24 14:01 Height 5 ft 10 in Weight 250 lb 10.649 oz BMI 36.0 BP 130/76 Blood Pressure Location Lt brachial Position Sitting Pulse 103 H Pulse Source Pulse Oximeter Pulse Oximetry (%) 97 Oxygen Delivery Method Room Air Intake Visit Reasons: Gout Intake Note: Patient presents for follow up on gout and lab review. Allergies codeine Allergy (Mild, Verified 07/09/24 14:05) Itching gabapentin Allergy (Mild, Verified 07/09/24 14:05) Rash mushroom Allergy (Mild, Verified 07/09/24 14:05) Vomiting nortriptyline Allergy (Mild, Verified 07/09/24 14:05) Nightmare mushrooms Allergy (Mild, Uncoded 07/09/24 14:05) Vomiting Medication List - Last Reconciled 07/09/24 by Amy Romo MD albuterol sulfate 90 mcg/actuation (Ventolin HFA) 2 puffs PO PRN amitriptyline 100 mg PO DAILY atorvastatin 20 mg PO DAILY colchicine 0.3 mg PO DAILY PRN cyclobenzaprine 5 mg PO TID PRN diphenhydramine HCl mg PO folic acid 1 mg PO DAILY hydrocortisone 2.5% topical hydroxyzine HCl 25 mg PO TID PRN ketoconazole 2% 1 appl topical Krystexxa (pegloticase) 8 mg IV Q2W NS methotrexate sodium 15 mg (6 x 2.5 mg) PO QWEEK metoprolol succinate ER 25 mg PO DAILY nystatin 1 appl topical TID 10 days sodium chloride 0.9 % (flush) (BD PosiFlush Normal Saline 0.9 % injection syringe) mL IV HPI Comments Details: Patient is a 59-year-old male current everyday smoker with anxiety, hyperlipidemia, DM c/b CKD, HTN, COPD, and chronic tophaceous gout here today for follow up Interval History: Patient last seen 03/03/[address] Mixon. At that time he was following up for his chronic tophaceous gout. He was on Krystexxa regularly along with methotrexate 15 mg once a week with folic acid once daily. No side effects or infusion reactions related to Krystexxa and he was doing well. Today, He reports no gout flares since last visit. Continues to do well on his Krystexxa infusions Rheumatologic History: dx at age 14 Numerous medications including allopurinol, Uloric, probenecid, colchicine Krystexxa started fall- until 01/2023 with reduction of tophi size. uric acid level increased from undetectable to 12.3 1 month after Krystexxa was stopped Krystexxa restarted 03/2023 effective Initial history: This is a 57-year-old male with chronic tophaceous gout who presents for gout evaluation. Patient states that he has had gout since age 14. Has been on numerous medicines including allopurinol, Uloric, colchicine, probenecid. Most recently he was evaluated by commercial electrician and started on Krystexxa in the fall of 2021 and his last Krystexxa infusion was early January of 2023. States that he has done quite well on Krystexxa with very few gout flare-ups. States that the tophi on his fingers and toes have reduced in size on Krystexxa. He has been taking colchicine 0.3 mg daily. States that colchicine 0.6 mg Twice daily causes diarrhea. 0.6 mg daily is well tolerated. He was on methotrexate while on Krystexxa but not anymore. While on Krystexxa his uric acid level was undetectable. He states that he had numerous kidney stones over the years Patient states that he feels a little worse now that he is off Krystexxa. Current Rheumatology Medication(s): Krystexxa 8mg IV every 2 weeks Methotrexate 15mg weekly Folic acid 1mg daily Colchicine 0.3mg daily prn PFSH Medical History Anxiety Chronic kidney disease (CKD), stage III (moderate) Diabetes mellitus Obesity (BMI 30-39.9) Smoker COPD (chronic obstructive pulmonary disease) Pure hypercholesterolemia Benign essential hypertension Chronic tophaceous gout Surgical History History of lung surgery History of left knee replacement Family History Mother Diabetes Arthritis Father Gout Social History Housing: House Alcohol intake: current Alcohol intake frequency: holidays/special occasions only Alcohol type: beer Patient Tobacco Use Status: Current everyday Tobacco user Tobacco use type: Cigarette Cigarette Packs Per Day: 0.5 Cigarettes Per Day: 10 e-Cigarette/Vaping Use: Never Used Second Hand Smoke Exposure: Yes service: No Current occupational status: disabled 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 Cognitive needs: No Hearing needs: No Vision needs: No Review of Systems Const Details: Review of Systems Constitutional: Denies fever, chills, weight loss ENT: Denies vision changes, eye pain or eye redness, dental caries, dry mouth GI: Denies nausea, vomiting, diarrhea, abdominal pain, change in BM Pulm: Denies SOB, SANTIAGO, hemoptysis, wheezing Cards: Denies chest pain, palpitations Skin: Denies Raynaud's, rash, nail changes, photosensitivity, BULK FLUIDS HANDLER: Denies headaches, weakness, paresthesias, recurrent falls MSK: as per HPI All other systems reviewed and are unremarkable except noted above Physical Exam Vital Signs: Last Vital Signs Pulse 103 H 07/09/24 14:01 BP 130/76 07/09/24 14:01 Pulse Ox 97 07/09/24 14:01 Oxygen Delivery Method Room Air 07/09/24 14:01 BMI result Body Mass Index 36.0 Vital signs reviewed Physical Examination CONSTITUITIONAL Patient alert and cooperative. Well appearing and in no apparent painful distress HEENT Conjunctiva and sclera clear. ?Pupils equal round and reactive to light. ?No lymphadenopathy. ? CHEST/RESPIRATORY SYSTEM Normal respiratory effort and able to speak in complete sentences. ?Clear to auscultation bilaterally. ?No crackles, rales, rhonchi, wheezes heard. CARDIAC SYSTEM Regular rate and rhythm. ?S1 and S2 heard no murmurs. ?Radial pulses intact bilaterally MSK Hands: ?Able to make a fist. No synovitis noted to the MCPs, PIPs or DIPs. ?No tenderness to palpation of these joints. No deformities noted. ? Wrists: ?Full range of motion at the wrists without pain. ?No tenderness to palpation or synovitis noted to the wrists. Elbows: Full range of motion without pain. No tenderness, weakness, swelling, increased warmth or erythema. Tophi noted to left elbow. Shoulders: Full range of active range of motion without pain. No tenderness, weakness, swelling, increased warmth or erythema. Knees: ?Full range of motion. ?No tenderness, swelling, increased warmth or erythema.?No effusion or crepitations Ankles: Full range of motion. ?No tenderness, swelling, increased warmth or erythema.? Feet: ?Negative squeeze test. ?No tenderness to palpation or swelling of the MTPs. Tender points:?No tenderness to palpation of the bilateral trapezius, supraspinatus, greater trochanters, anterior costochondral junctions, bilateral gluteal areas, bilateral suboccipital muscle insertions SKIN Skin intact without rashes. Results Reviewed Results Reviewed: [facility] report reviewed uric acid at goal Assessment & Plan Assessment & Plan (1) Chronic tophaceous gout: Comment: dx at age 14 Numerous medications including allopurinol, Uloric, probenecid, colchicine Krystexxa started fall- until 01/2023 with reduction of tophi size. uric acid level increased from undetectable to 12.3 1 month after Krystexxa was stopped Krystexxa restarted 03/2023 effective Code(s): M1A.9XX1 - Chronic gout, unspecified, with tophus (tophi) Category: Medical Plan: # crystal proven tophaceous gout Patient is a 59-year-old male with crystal proven tophaceous gout here today for follow up. Doing well on Krystexxa and methotrexate. No further gout flares. Uric acid at goal. Slow resolution of his tophi Plan - Krystexxa 8mg IV every 2 weeks - Methotrexate 15mg weekly - Folic acid 1 mg daily - RTC 6 months - Labs at 3 and 6 months: CBC, CMP, ESR, CRP, UA (2) Encounter for methotrexate monitoring: Code(s): Z51.81 - Encounter for therapeutic drug level monitoring; Z79.631 - [facility] (current) use of antimetabolite agent Plan: #Long-term Current Use of Methotrexate Discussed with patient the benefits and risks of methotrexate for managing their rheumatic condition Benefits include reduced pain, reduced mortality, maintenance of remission and reduction of flares Risks include oral ulcers, photosensitivity, hepatotoxicity, hematologic toxicity, pneumonitis, flu-like symptoms (especially day after administration), nodulosis, lymphomas ? Limit alcohol and avoid Bactrim ? 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 Benefits include improved gout flares, reduction of tophi and improve uric acid control. Risks include: Serious Allergic Reactions: Krystexxa can cause serious, potentially life- threatening allergic reactions, including anaphylaxis. These reactions can occur even with the first infusion and may happen during or after the infusion. Infusion Reactions: Infusion reactions, such as rash, itching, flushing, or difficulty breathing, are also possible. Gout Flares: Gout flares may initially increase in the first few months of treatment with Krystexxa, as the medication starts to break down uric acid crystals in the body. However, these flares tend to decrease with continued treatment. G6PD Deficiency: Krystexxa is contraindicated in patients with [id number] dehydrogenase (G6PD) deficiency, a genetic condition, due to the risk of serious blood problems. Plan I spent 25 minutes reviewing the record and labs, taking a history, examining the patient, discussing the treatment plan, ordering diagnostic work up and documenting in the medical record Orders: Orders Comprehensive Met. Panel 6 Months M1A.9XX1 - Chronic gout, unspecified, with tophus (tophi) Complete Blood Count Auto Diff 6 Months M1A.9XX1 - Chronic gout, unspecified, with tophus (tophi) C Reactive Protein 6 Months M1A.[id number] - Chronic gout, unspecified, with tophus (tophi) Erythrocyte Sedimentation Rate 6 Months M1A.[id number] - Chronic gout, unspecified, with tophus (tophi) Uric Acid 6 Months M1A.[id number] - Chronic gout, unspecified, with tophus (tophi) Coding Level of Care Code Est Pt Level 3 (51564) Complex EM visit Add On G2211 Diagnoses Chronic tophaceous gout M1A.9XX1 Encounter for methotrexate monitoring Z51.81; Z79.631 Long-term use of high-risk medication Z79.899
== END 2024-07-09 14:30 | disposition home or self-care (01) ==
LOC: HO.RHE 13:54
PROVIDERS: PCP Internal Medicine; Visit Provider Student in an Organized Health Care Education/Training Program
DX: M1A.9XX1 Chronic gout, unspecified, with tophus (tophi) (principal); Z51.81 Encounter for therapeutic drug level monitoring; Z79.631 Long term (current) use of antimetabolite agent; Z79.899 Other long term (current) drug therapy
CPT/HCPCS: 99213; G2211

== ENCOUNTER → 2024-07-09 13:53 | Outpatient (BNVA) | payer MEDICARE, MEDICAID, SELFPAY | PROVIDERS: PCP Internal Medicine; Visit Provider Student in an Organized Health Care Education/Training Program | DX: M1A.9XX1 Chronic gout, unspecified, with tophus (tophi) (principal); Z51.81 Encounter for therapeutic drug level monitoring; Z79.631 Long term (current) use of antimetabolite agent; Z79.899 Other long term (current) drug therapy | CPT/HCPCS: 99212 ==

== ENCOUNTER 2024-08-22 10:49 | Outpatient (AMB) | payer MEDICARE, MEDICAID, SELFPAY ==
[2024-08-22 10:51] VITALS: BP 130/86; PULSE 89; O2SAT 96; BMI 35.6
--- NOTE | 2024-08-22 10:51 | A.OFFPC_ITS ---
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: No Accompanied by: Self / Same As Patient Allergies codeine Allergy (Mild, Verified 08/22/24 11:47) Itching gabapentin Allergy (Mild, Verified 08/22/24 11:47) Rash mushroom Allergy (Mild, Verified 08/22/24 11:47) Vomiting nortriptyline Allergy (Mild, Verified 08/22/24 11:47) Nightmare mushrooms Allergy (Mild, Uncoded 08/22/24 11:47) Vomiting Medication List - Last Reconciled 08/22/24 by Flakito Wing MD albuterol sulfate 90 mcg/actuation (Ventolin HFA) 2 puffs PO PRN amitriptyline 100 mg PO DAILY atorvastatin 20 mg PO DAILY colchicine 0.3 mg PO DAILY PRN cyclobenzaprine 5 mg PO TID PRN diphenhydramine HCl mg PO folic acid 1 mg PO DAILY hydrocortisone 2.5% topical hydroxyzine HCl 25 mg PO TID PRN ketoconazole 2% 1 appl topical Krystexxa (pegloticase) 8 mg IV Q2W NS methotrexate sodium 15 mg (6 x 2.5 mg) PO QWEEK metoprolol succinate ER 25 mg PO DAILY nystatin 1 appl topical TID 10 days sodium chloride 0.9 % (flush) (BD PosiFlush Normal Saline 0.9 % injection syringe) mL IV Tobacco use date assessed: 08/22/24 Dental Screening Dental Screen Date: 08/22/24 Did you have a dental visit in the last 12 months?: No Did you have a dental problem in the last 6 months where you did not have access to dental care?: No Was dental information given to patient?: No HPI 4 Month F/U HPI Details Patient comes in today for his follow up visit States that he has been experiencing recurrent low back pains lately, especially on his left side He suspects that his recent recurrent low back pain may be related to his bed/mattress, which he states is very old Relates that he had some low back x-rays done at [facility] about 2 weeks ago and is wondering if we have received his x-ray report from [facility] yet Would like to see if he can get some Rx refills for his muscle relaxants in the meantime States that he is currently still on Krystexxa infusions every 2 weeks and Methotrexate every week and his gout appears to be well-controlled on his current meds for a while now as he's had no acute gout flare ups in months now He continues to follow up with rheumatology regularly for his chronic tophaceous gout He denies any headaches or dizziness Denies any chest pains, no increased SOB No nausea/ vomiting, no abdominal pain No change in bowel habits noted States that he had some labs done (ordered by rheumatology) at [facility] about 2 to 3 weeks ago [facility] Medical History Anxiety Chronic kidney disease (CKD), stage III (moderate) Diabetes mellitus Obesity (BMI 30-39.9) Smoker COPD (chronic obstructive pulmonary disease) Pure hypercholesterolemia Benign essential hypertension Chronic tophaceous gout Surgical History History of lung surgery History of left knee replacement Family History Mother Diabetes Arthritis Father Gout Social History Housing: House Alcohol intake: current Alcohol intake frequency: holidays/special occasions only Alcohol type: beer Patient Tobacco Use Status: Current everyday Tobacco user Tobacco use type: Cigarette Cigarette Packs Per Day: 0.5 Cigarettes Per Day: 10 e-Cigarette/Vaping Use: Never Used Second Hand Smoke Exposure: Yes service: No Current occupational status: disabled 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 1. Little interest or pleasure in doing things: more than half the days 2. Feeling down, depressed, or hopeless: not at all 3. Trouble falling or staying asleep, or sleeping too much: several days 4. Feeling tired or having little energy: several days 5. Poor appetite or overeating: not at all 6. Feeling bad about yourself - or that you are a failure or have let yourself or your family down: not at all 7. Trouble concentrating on things, such as reading the newspaper or watching television: not at all 8. Moving or speaking so slowly that other people could have noticed. Or the opp osite - being so fidgety or restless that you have been moving around a lot more than usual: not at all 9. Thoughts that you would be better off or of hurting yourself in some way: not at all Total score: 4 Depression Screening Interpretation: Positive Depression Screening Follow-up: Existing condition and In treatment Depression Screening Done: Yes 66826 - PHQ-9 Billing: Yes Source: Developed by Drs. Manuel Fox, Marlen Resendiz, Maco Wood and colleagues, with an educational poli from [employer]. Thrive Questionnaire Date Thrive assessed: 08/22/24 I am a: Patient What is your living situation today?: I have a steady place to live Within the past 12 months, did the food you bought not last and you didn't have the money to get more?: Never true Within the past 12 months, did you worry whether your food would run out before you got money to buy more?: Never true Do you have trouble paying for medicines?: No Do you have trouble getting transportation to medical appointments?: Yes Do you have trouble paying your heating and electricity bill?: No Do you have trouble taking care of your child, family member or friend?: No Do you have trouble with day-to-day activities such as bathing, preparing meals, shopping, managing finances, etc.?: No Are you currently unemployed and looking for a job?: No Are you interested in more education?: Yes Please select the resources that you would like help with: None Currently or been in a relationship where the following occur: No concerns reported THRIVE Score: 1 AUDIT C Alcohol Use Questionnaire (AUDIT-C) 1. How often do you have a drink containing alcohol?: Monthly or less 2. How many drinks containing alcohol do you have on a typical day when you are drinking?: 1 or 2 3. How often do you have six or more drinks on one occasion?: Never Total Score: 1 Score Reviewed/Action Taken: Yes SURAJ-7 AMB Questionnaire SURAJ-7 Date SURAJ - 7 assessed: 08/22/24 Feeling nervous, anxious, or on edge: 1 = Several days Not being able to stop or control worryin = Not at all Worrying too much about different things: 0 = Not at all Trouble relaxin = Not at all Being so restless that it is hard to sit still: 1 = Several days Becoming easily annoyed or irritable: 0 = Not at all Feeling afraid as if something awful might happen: 0 = Not at all Total SURAJ-7 score (0-4 normal; 5-9 mild; 10-14 moderate; 15-21 severe): 2 Source: Developed by Drs. Manuel Fox, Marlen Resendiz, Maco Wood and colleagues, with an educational poli from [employer]. Review of Systems Const Denies chills, Denies fatigue, Denies fever(s) and Denies headache(s) ENT Denies dysphagia, Denies dizziness, Denies headache(s), Denies neck pain, Denies odynophagia and Denies sore throat Card Denies chest pain, Denies rapid heart rate, Denies palpitations and Denies dyspnea Resp Denies chest congestion, Denies cough and Denies dyspnea GI Denies abdominal pain, Denies constipation, Denies dysphagia, Denies heartburn, Denies diarrhea, Denies nausea, Denies odynophagia and Denies vomiting Denies dysuria, Denies nocturia and Denies urinary frequency Musc Details: (+) multiple joint deformities, especially of the fingers on both hands, due to chronic tophaceous gout; (+) occasional pain over his left wrist and left arm (had wrist fracture and underwent surgery months ago) Reports back pain (on and off lately, especially on the left side), Reports arthralgias (chronic - involving multiple joints especially of his fingers), Reports limited range of motion and Denies neck pain Skin/Breast Denies rash Neuro Denies dizziness and Denies headache(s) Psych Reports anxiety Endo Denies fatigue and Denies palpitations Physical exam (Primary Care) Vital Signs: Last Vital Signs Pulse 89 08/22/24 10:51 BP 130/86 08/22/24 10:51 Pulse Ox 96 08/22/24 10:51 Oxygen Delivery Method Room Air 08/22/24 10:51 BMI result Body Mass Index 35.6 Tobacco/Smoking Status: Tobacco use Status Tobacco use date assessed 08/22/24 08/22/24 10:58 Patient Tobacco Use Status Current everyday Tobacco 08/22/24 10:58 Tobacco use type Cigarette 08/22/24 10:58 e-Cigarette/Vaping Use Never Used 08/22/24 10:58 PHQ-9: PHQ-9 Score PHQ-9: Total score 4 08/22/24 10:58 Depression Screening Interpretation: Positive Depression Screening Follow-up: Existing condition and In treatment Thrive Assessment: Date of Thrive Assessment Date Thrive assessed 08/22/24 08/22/24 10:58 Currently or been in a relationship where the following occur: No concerns reported Const General: no acute distress and alert HENMT Ears: TM's normal bilaterally and EAC's normal Throat: Yes posterior oropharynx normal and Yes tonsils normal (no TP congestion noted) Neck Neck: Yes no lymphadenopathy and Yes supple Thyroid: Thyroid normal Resp Auscultation: clear to auscultation bilaterally, no rales and no wheezes Cardio Rate: regular rate Rhythm: regular rhythm Heart sounds: no murmurs GI Palpation (GI): Soft to palpation and nontender Auscultation: normal bowel sounds General: Yes no CVA tenderness Back/Spine/Pelvis Back: no CVA tenderness Thoracic/Lumbar Spine: paraspinal muscle tenderness bilaterally (worse on the left side) in the mid lumbar and in the lower lumbar and No lumbar spinal tenderness Extrem Other: (+) multiple joint deformities and tenderness, involving multiple fingers on both hands (with swelling/enlargement of IPs), ankles and knees; (+) large fluctuant cysts on the elbows bilaterally General: Yes no clubbing, cyanosis or edema Coding Level of Care Code Est Pt Level 4 (58778) Diagnoses Bilateral low back pain without sciatica, unspecified chronicity M54.50 Chronicity: unspecified Back pain laterality: bilateral Sciatica presence: without sciatica Pure hypercholesterolemia E78.00 Benign essential hypertension I10 Type 2 diabetes mellitus without complication, without long-term current use of insulin E11.9 Diabetes mellitus type: type 2 Diabetes mellitus ad terminal 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 operator insulin use: without ad terminal makeup operator use Diabetes mellitus complication status: without complication Stage 3a chronic kidney disease N18.31 Chronic kidney disease stage 3 subtype: stage 3a (GFR 45-59) Chronic tophaceous gout [id number].[id number] Chronic obstructive pulmonary disease, unspecified COPD type J44.9 COPD type: unspecified COPD Anxiety F41.9 Smoker F17.200 Obesity (BMI 30-39.9) E66.9 Additional Codes PHQ-9 - 55019 - PHQ-9 Billing: Yes ([id number]) Assessment & Plan Assessment & Plan (1) Low back pain: Code(s): M54.50 - Low back pain, unspecified Category: Medical Qualifiers: Chronicity: unspecified Back pain laterality: bilateral Sciatica presence: without sciatica Qualified Code(s): M54.50 - Low back pain, unspecified Plan: Discussed with patient that his recent recurrent low back pains are most likely musculoskeletal pain and as he surmised, may be in part related to his old mattress, but may also be due to posture and his daily activities Advised patient that we have not received any report of his recent lower back x- rays from [facility] but we will try to follow up on this and get a copy of his report sent over [facility] for review and documentation Will start him back for now on Cyclobenzaprine 5 mg TID PRN Will also refer him to physical therapy for further evaluation and management (2) Pure hypercholesterolemia: Code(s): E78.00 - Pure hypercholesterolemia, unspecified Category: Medical Plan: Patient states that he had his follow-up labs done at [facility] about 2 to 3 weeks ago but we have not received any of his recent results yet - will try to reach out to [facility] and have them send his results over [facility] Reinforced low cholesterol diet Continue Atorvastatin 20 mg QD Will recheck his labs and fasting lipids in 4 months for follow up (3) Benign essential hypertension: Code(s): I10 - Essential (primary) hypertension Category: Medical Plan: Reinforced low sodium diet - goal is systolic BP of 120 to 130 mm or less Continue Metoprolol ER 25 mg QD (4) Diabetes mellitus: Code(s): E11.9 - Type 2 diabetes mellitus without complications Category: Medical Qualifiers: Diabetes mellitus type: type 2 Diabetes mellitus senior living insulin use: without senior living use Diabetes mellitus complication status: without complication Qualified Code(s): E11.9 - Type 2 diabetes mellitus without complications Plan: His HgbA1c was most recently at 5.5% earlier this year (his HgbA1c was at 5.7% when last checked in February 2023) - goal is at ideally <6.5% Reinforced diabetic diet Patient is currently still on NO Rx for diabetes and is just maintaining/controlling his diabetes with diet modification alone (5) Chronic kidney disease (CKD), stage III (moderate): Code(s): N18.30 - Chronic kidney disease, stage 3 unspecified Category: Medical Qualifiers: Chronic kidney disease stage 3 subtype: stage 3a (GFR 45-59) Qualified Code(s): N18.31 - Chronic kidney disease, stage 3a Plan: His CKD is most likely multifactorial, including due to his HTN and DM as well as his significantly elevated uric acid burden and intractable gout for years Reinforced adequate hydration Follow up with nephrology (Dr. Hunt) as scheduled (6) Chronic tophaceous gout: Comment: dx at age 14 Numerous medications including allopurinol, Uloric, probenecid, colchicine Krystexxa started fall- until 01/2023 with reduction of tophi size. uric acid level increased from undetectable to 12.3 1 month after Krystexxa was stopped Krystexxa restarted 03/2023 effective Code(s): M1A.9XX1 - Chronic gout, unspecified, with tophus (tophi) Category: Medical Plan: Reinforced low purine diet Continue Methotrexate 15 mg once a week and Krystexxa 8 mg IV every 2 weeks - he has been doing very well on his current meds for over a year now and that he's had no significant gout flare ups since he was started on his current meds His uric acid level again came back very low (<0.2) on his labs done back in May 2024 Follow up with [facility] as scheduled (7) COPD (chronic obstructive pulmonary disease): Code(s): J44.9 - Chronic obstructive pulmonary disease, unspecified Category: Medical Qualifiers: COPD type: unspecified COPD Qualified Code(s): J44.9 - Chronic obstructive pulmonary disease, unspecified Plan: Stable/controlled Continue Albuterol HFA 2 inhalations every 6 hours as needed (8) Anxiety: Code(s): F41.9 - Anxiety disorder, unspecified Category: Medical Plan: Continue Hydroxyzine 25 mg TID PRN (9) Smoker: Code(s): F17.200 - Nicotine dependence, unspecified, uncomplicated Category: Social Hx Plan: Patient is counseled again on complete smoking cessation (10) Obesity (BMI 30-39.9): Code(s): E66.9 - Obesity, unspecified Category: Medical Plan: Reinforced diet and weight loss; exercise does not appear to be a realistic option due to patient's joint deformities and chronic joint pains Plan Follow up in 4 months Orders: Orders Complete Blood Count Auto Diff 4 Months D64.9 - Anemia, unspecified UA CC w/rflx Micro + Cult 4 Months R30.0 - Dysuria Uric Acid 4 Months M10.9 - Gout, unspecified Microalbumin, Random (w Creat) 4 Months E11.9 - Type 2 diabetes mellitus without complications PT Evaluation and Treatment Today M54.50 - Low back pain, unspecified Comprehensive [place]. Panel Fast 4 Months E78.00 - Pure hypercholesterolemia, unspecified Lipid Panel 4 Months E78.00 - Pure hypercholesterolemia, unspecified TSH reflex Free T4 4 Months E78.00 - Pure hypercholesterolemia, unspecified Hemoglobin A1c 4 Months E11.9 - Type 2 diabetes mellitus without complications Medications: Refilled cyclobenzaprine 5 mg PO TID PRN 30 tabs 1RF muscle spasms
--- OUTSIDE RECORDS SUMMARY | 2024-08-22 11:52 | XMS_ITS | Clinical Summary ---
Author Organization [facility] Address [address] [place] [address] Phone Care Team Providers Care Aircraft Assembler Name Role Phone Ed Muller MD Primary Care Provider Allergies Active Allergy Reactions Criticality Noted Date Comments Mushroom Unknown 04/30/2024 Nortriptyline Unknown 04/30/2024 Medications folic acid (FOLVITE) 1 mg tablet Take 1 tablet (1,000 mcg total) by mouth 1 (one) time each day. 03/28/2024 Active hydrOXYzine HCL (ATARAX) 25 mg tablet Take 1 tablet (25 mg total) by mouth 3 (three) times a day if needed for anxiety. 04/02/2024 Active methotrexate 2.5 mg tablet Take 6 tablets (15 mg total) by mouth 1 (one) time per week On Fridays03/03/2024 Active Encounters Date Type Department Care Team Description 08/04/2024 5:45 AM EDT - 08/04/2024 5:18 PM EDT Emergency [facility] Emergency [address] [place] [address] Surinder Villafana MD Chambers, Patrick, MD Left flank pain (Primary Dx); Alcoholic intoxication without complication (CMS/HCC V24); Fall, initial encounter Discharge Disposition: Home or Self Care from Last 3 Months Social History Tobacco Use Types Packs/Day Years Used Date Smoking Tobacco: Never Assessed Sex and Gender Information Value Date Recorded Sex Assigned at Male 04/30/2024 4:09 PM EST Legal Sex Male 10:34 PM EST Gender Identity Male 04/30/2024 4:09 PM EST Sexual Orientation Straight 04/30/2024 4: 09 PM EST Last Filed Vital Signs Vital Sign Reading Time Taken Comments Blood Pressure 109/81 08/04/2024 6:28 AM EDT Pulse 103 08/04/2024 6:28 AM EDT Temperature 36.8 C (98.2 F) 08/04/2024 5:45 AM EDT Respiratory Rate 18 08/04/2024 5:45 AM EDT Oxygen Saturation 95% 08/04/2024 5:45 AM EDT Inhaled Oxygen Concentration - - Weight 113 kg (250 lb) 08/04/2024 5:45 AM EDT Height 177.8 cm (5' 10 ) 08/04/2024 5:45 AM EDT Body Mass Index 35.87 08/04/2024 5:45 AM EDT Plan of Treatment Health Maintenance Due Date Last Done Comments COVID-19 Vaccine (#1) 1971 DTaP,Tdap,and Td Vaccines (1 - Tdap) 1985 Hepatitis A Vaccines (1 of 2 - Risk 2-dose series) 1985 Hepatitis B Vaccines (1 of 3 - 19+ 3-dose series) 1985 Pneumococcal Vaccine: 50+ Years (1 of 2 - PCV) 1985 Pneumococcal Vaccine: Pediatrics (0 to 5 Years) and At-Risk Patients (6 to 64 Years) (1 of 2 - PCV) 1985 Zoster Vaccines (1 of 2) 2016 Cholesterol Screening (Lipid Panel) 05/01/2024 Colorectal Cancer Screening: Colonoscopy 05/01/2024 Depression Screening 05/01/2024 HIV Screening 05/01/2024 Hepatitis C Screening 05/01/2024 Medicare Annual Wellness Visit 05/01/2024 Social Influencers of Health Screening 05/01/2024 Influenza Vaccine (Season Ended) 2024 Hypertension/CHF/CAD Annual BMP Blood Test 08/04/2025 08/04/2024, 04/30/2024 HIB Vaccines Aged Out No longer eligi ble based on patient's age to complete this topic HPV Vaccines Aged Out No longer eligi ble based on patient's age to complete this topic IPV Vaccines Aged Out No longer eligi ble based on patient's age to complete this topic MMR Vaccines Aged Out No longer eligi ble based on patient's age to complete this topic Meningococcal ACWY Vaccine Aged Out N o longer eligible based on patient's age to complete this topic Meningococcal B Vaccine Aged Out No l onger eligible based on patient's age to complete this topic RSV Immunization Patients Under 20 months Aged Out No longer eligible b ased on patient's age to complete this topic Varicella Vaccines Aged Out No longer eligible based on patient's age to complete this topic Procedures Procedure Name Priority Date/Time Associated Diagnosis Comments CT CHEST/ABDOMEN/PELVIS W CONTRAST STAT 08/04/2024 1:[address] HEAD WO CONTRAST STAT 08/04/2024 7 :44 AM EDT CBC WITH AUTO DIFFERENTIAL STAT 08/04/2024 6:52 AM EDT LIPASE STAT 08/04/2024 6:52 AM EDT ETHANOL STAT 08/04/2024 6:52 AM EDT CBC AND DIFFERENTIAL STAT 08/04/2024 6:52 AM EDT COMPREHENSIVE METABOLIC PANEL STAT 08/04/2024 6:52 AM EDT XR LUMBAR SPINE 2-3 VIEWS STAT 08/04/2024 6:39 AM EDT from Last 3 Months Results * CT Chest/Abdomen/Pelvis w Contrast (08/04/2024 1:12 PM EDT) Anatomical Region Laterality Modality Body Computed Tomogra phy 08/04/2024 2:08 PM EDT Impressions 08/04/2024 2:30 PM EDT No acute findings in the chest, abdomen, or pelvis. Incidental findings as above. -------- FINAL REPORT -------- Dictated By: Ronnie Hernandez Dictated Date: 08/04/2024 14:08 ET Assigned Physician: Ronnie Hernandez Reviewed and Electronically Signed By: Ronnie Hernandez Signed Date: 08/04/2024 14:30 ET Workstation ID: [id number] Transcribed By: Self Edit Transcribed Date: 08/04/2024 14:09 ET Narrative 08/04/2024 2:[address] CHEST, ABDOMEN AND PELVIS WITH CONTRAST INDICATION: Polytrauma, critical, [id number] injury suspected TECHNIQUE: Chest, abdomen and pelvis CT following the intravenous administration of 90cc ISOVUE 370. Multiplanar reformats were created and interpreted. The examination was performed utilizing dose reduction techniques. Total DLP: 2521 mGy/cm COMPARISON: 08/05/2019 FINDINGS: LUNGS/PLEURA: Atelectasis in the right lung base. Extensive coronary artery calcifications. MEDIASTINUM: There is diffuse esophageal thickening which could be seen in setting of esophagitis. CHEST WALL: Radiopaque foreign bodies over the left chest wall with postsurgical changes of the ribs. HEPATOBILIARY: No focal liver lesions. No cholelithiasis or biliary duct dilatation. SPLEEN: no focal lesion PANCREAS: Fatty infiltration of the pancreas. ADRENALS: No nodules. KIDNEYS/URETERS: No hydronephrosis, stones, or solid mass. PELVIC ORGANS/BLADDER: Mild bladder distention. Prostate calcifications. PERITONEUM / RETROPERITONEUM: No ascites or free air. No retroperitoneal lymphadenopathy. VESSELS: Scattered atherosclerotic calcifications throughout the aorta and its major branches. No aneurysm. GI TRACT: No bowel distention or wall thickening. Normal appendix. BONES AND SOFT TISSUES: Remote left rib fractures with postsurgical changes. Tissue ossification of the left gluteal region as well as chronic soft tissue ossifications over the right hip. Soft tissues are unremarkable. Procedure Note Ronnie Hernandez MD - 08/04/2024 CT CHEST, ABDOMEN AND PELVIS WITH CONTRAST INDICATION: Polytrauma, critical, [id number] injury suspected TECHNIQUE: Chest, abdomen and pelvis CT following the intravenousadministration of 90cc ISOVUE 370. Multiplanar reformats were created andinterpreted. The examination was performed utilizing dose reductiontechniques. Total DLP: 2521 mGy/cm COMPARISON: 08/05/2019 FINDINGS: LUNGS/PLEURA: Atelectasis in the right lung base. Extensive coronaryartery calcifications. MEDIASTINUM: There is diffuse esophageal thickening which could be seen insetting of esophagitis. CHEST WALL: Radiopaque foreign bodies over the left chest wall withpostsurgical changes of the ribs. HEPATOBILIARY: No focal liver lesions. No cholelithiasis or biliary ductdilatation. SPLEEN: no focal lesion PANCREAS: Fatty infiltration of the pancreas. ADRENALS: No nodules. KIDNEYS/URETERS: No hydronephrosis, stones, or solid mass. PELVIC ORGANS/BLADDER: Mild bladder distention. Prostatecalcifications. PERITONEUM / RETROPERITONEUM: No ascites or free air. No retroperitoneallymphadenopathy. VESSELS: Scattered atherosclerotic calcifications throughout the aorta andits major branches. No aneurysm. GI TRACT: No bowel distention or wall thickening. Normal appendix. BONES AND SOFT TISSUES: Remote left rib fractures with postsurgicalchanges. Tissue ossification of the left gluteal region as well aschronic soft tissue ossifications over the right hip. Soft tissues areunremarkable. IMPRESSION: No acute findings in the chest, abdomen, or pelvis. Incidental findings as above. -------- FINAL REPORT -------- Dictated By: Ronnie Hernandez Dictated Date: 08/04/2024 14:08 ET Assigned Physician: Ronnie Hernandez Reviewed and Electronically Signed By: Ronnie Hernandez Signed Date: 08/04/2024 14:30 ET Workstation ID: [id number] Transcribed By: Self Edit Transcribed Date: 08/04/2024 14:09 ET Martin Steward MD IMG CT PROCEDURES Final Resu lt * CT Head wo Contrast (08/04/2024 7:44 AM EDT) Anatomical Region Laterality Modality Head and Neck Computed Tomogra phy 08/04/2024 7:57 AM EDT Impressions 08/04/2024 7:59 AM EDT No acute intracranial findings. Small metallic foreign body in the right jugular soft tissues. -------- FINAL REPORT -------- Dictated By: Alessandro Heard Dictated Date: 08/04/2024 07:57 ET Assigned Physician: Alessandro Heard Reviewed and Electronically Signed By: Alessandro Heard Signed Date: 08/04/2024 07:59 ET Workstation ID: [id number] Transcribed By: Self Edit Transcribed Date: 08/04/2024 07:57 ET Narrative 08/04/2024 7:59 AM EDT PROCEDURE: Noncontrast head CT. HISTORY: Head trauma, abnormal mental status (Age 19-64y). COMPARISON: None. TECHNIQUE: Noncontrast head CT with coronal and sagittal reformats. Dose length product: 809 mGy-cm. FINDINGS: BRAIN: No hemorrhage, edema, mass, or extra-axial fluid collection. No CT evidence of an acute large vessel infarct. Ventricles and sulci are age commensurate. ORBITS: Normal. SINUSES/MASTOIDS: Mild mucosal thickening in the left posterior sphenoid sinus. S-shaped bowing of the nasal septum with a large leftward projecting apical septal spur inferiorly CALVARIUM: Normal. OTHER: There is a small metallic foreign body in the right premalar soft tissues. Procedure Note Alessandro Heard MD - 08/04/2024 PROCEDURE: Noncontrast head CT. HISTORY: Head trauma, abnormal mental status (Age 19-64y). COMPARISON: None. TECHNIQUE: Noncontrast head CT with coronal and sagittal reformats. Dose length product: 809 mGy-cm. FINDINGS: BRAIN: No hemorrhage, edema, mass, or extra-axial fluid collection. No CTevidence of an acute large vessel infarct. Ventricles and sulci are agecommensurate. ORBITS: Normal. SINUSES/MASTOIDS: Mild mucosal thickening in the left posterior sphenoidsinus. S-shaped bowing of the nasal septum with a large leftwardprojecting apical septal spur inferiorly CALVARIUM: Normal. OTHER: There is a small metallic foreign body in the right premalar softtissues. IMPRESSION: No acute intracranial findings. Small metallic foreign body in the right jugular soft tissues. -------- FINAL REPORT -------- Dictated By: Alessandro Heard Dictated Date: 08/04/2024 07:57 ET Assigned Physician: Alessandro Heard Reviewed and Electronically Signed By: Alessandro Heard Signed Date: 08/04/2024 07:59 ET Workstation ID: [id number] Transcribed By: Self Edit Transcribed Date: 08/04/2024 07:57 ET [facility] Archie Villafana MD IMBen CT PROCEDURES Final Result * (ABNORMAL) CBC auto differential (08/04/2024 6:52 AM EDT) WBC 11.8(H) 4.8 - 10.8 K/mcL LAB HEMETOLOGY METHOD 08/04/2024 7:24 AM [facility] RBC 4.20(L) 4.50 - 5.50 M/mcL LAB [facility] Hemoglobin 15.0 13.5 - 17.5 g/dL LAB HEMETOLOGY METHOD 08/04/2024 7:24 AM [facility] Hematocrit 44.3 42.0 - 54.0 % LAB HEMETOLOGY METHOD 08/04/2024 7:24 AM [facility] MCV 106.2(H) 79.0 - 98.0 FL LAB HEMETOLOGY METHOD 08/04/2024 7:24 AM [facility] MCH 36.0(H) 27.0 - 32.0 pcg LAB HEMETOLOGY METHOD 08/04/2024 7:24 AM [facility] MCHC 33.9 32.0 - 37.0 g/dL LAB HEMETOLOGY METHOD 08/04/2024 7:24 AM [facility] RDW 15.4(H) 11.0 - 15.0 % LAB HEMETOLOGY METHOD 08/04/2024 7:24 AM [facility] Platelets 361 130 - 400 K/mcL LAB HEMETOLOGY METHOD 08/04/2024 7:24 AM [facility] MPV 8.9 7.0 - 11.0 FL LAB HEMETOLOGY METHOD 08/04/2024 7:24 AM [facility] NRBC 0.0 <1.0 % LAB HEMETOLOGY METHOD 08/04/2024 7:24 AM [facility] NRBC Absolute 0.00 <0.10 K/mcL LAB HEMETOLOGY METHOD 08/04/2024 7:24 AM [facility] Neutrophils Relative 60.8 % LAB HEMETOLOGY METHOD 08/04/2024 7:24 AM [facility] Lymphocytes Relative 24.9 % LAB HEMETOLOGY METHOD 08/04/2024 7:24 AM [facility] Monocytes Relative 9.6 % LAB HEMETOLOGY METHOD 08/04/2024 7:24 AM [facility] Eosinophils Relative 0.8 % LAB HEMETOLOGY METHOD 08/04/2024 7:24 AM [facility] Basophils Relative 0.9 % LAB HEMETOLOGY METHOD 08/04/2024 7:24 AM [facility] Immature Granulocytes Relative 3.0 % LAB HEMETOLOGY METHOD 08/04/2024 7:24 AM [facility] Neutrophils Absolute 7.20(H) 1.50 - 7.00 K/mcL LAB HEMETOLOGY METHOD 08/04/2024 7:24 AM [facility] Lymphocytes Absolute 2.94 1.00 - 5.00 K/mcL LAB HEMETOLOGY METHOD 08/04/2024 7:24 AM [facility] Monocytes Absolute 1.14(H) 0.20 - 1.00 K/mcL LAB HEMETOLOGY METHOD 08/04/2024 7:24 AM [facility] Eosinophils Absolute 0.09 0.00 - 0.50 K/mcL LAB HEMETOLOGY METHOD 08/04/2024 7:24 AM [facility] Basophils Absolute 0.11 0.00 - 0.20 K/mcL LAB HEMETOLOGY METHOD 08/04/2024 7:24 AM [facility] Immature Granulocytes Absolute 0.35(H) 0.00 - 0.03 K/mcL LAB HEMETOLOGY METHOD 08/04/2024 7:24 AM EDT [facility] Blood Venous blood specimen / Unknown Venipuncture / Unknown 08/04/2024 6:52 AM EDT 08/04/2024 7:18 AM EDT us Surinder Villafana MD LAB BLOOD ORDERABLES Final Resu lt Performing Organization Address [facility] de Phone Number [facility] [address] [place] [address], [place] [phone] * Lipase (08/04/2024 6:52 AM EDT) Lipase 49 13 - 75 unit/L LAB CHEMISTRY METHOD 08/04/2024 8:04 AM EDT [facility] Blood Venous blood specimen / Unknown Venipuncture / Unknown 08/04/2024 6:52 AM EDT 08/04/2024 7:18 AM EDT us Surinder Villafana MD LAB BLOOD ORDERABLES Final Resu lt Performing Organization Address [facility] de Phone Number [facility] [address] [place] [address], [place] [phone] * (ABNORMAL) Ethanol (08/04/2024 6:52 AM EDT) Ethanol Level 290(H) 0 - 10 mg/dL LAB CHEMISTRY METHOD 08/04/2024 8:04 AM EDT [facility] Blood Venous blood specimen / Unknown Venipuncture / Unknown 08/04/2024 6:52 AM EDT 08/04/2024 7:18 AM EDT us Surinder Villafana MD LAB BLOOD ORDERABLES Final Resu lt [facility] [address] [place] [address], * (ABNORMAL) Comprehensive Metabolic Panel (CMP) (08/04/2024 6:52 AM EDT) Sodium 134 133 - 145 mmol/L LAB CHEMISTRY METHOD 08/04/2024 8:04 AM [facility] Potassium 3.8 3.5 - 5.5 mmol/L LAB CHEMISTRY METHOD 08/04/2024 8:04 AM [facility] Chloride 102 96 - 110 mmol/L LAB CHEMISTRY METHOD 08/04/2024 8:04 AM [facility] CO2 21 21 - 32 mmol/L LAB CHEMISTRY METHOD 08/04/2024 8:04 AM [facility] Anion Gap 11 3 - 11 LAB CHEMISTRY METHOD 08/04/2024 8:04 AM [facility] Glucose 134(H) 70 - 100 mg/dL LAB CHEMISTRY METHOD 08/04/2024 8:04 AM [facility] BUN 17 5 - 25 mg/dL LAB CHEMISTRY METHOD 08/04/2024 8:04 AM [facility] Creatinine 1.32(H) 0.70 - 1.30 mg/dL LAB CHEMISTRY METHOD 08/04/2024 8:04 AM [facility] eGFR 63 >=60 mL/min/1. 73m2 LAB CHEMISTRY METHOD 08/04/2024 8:04 AM [facility] Comment:Calculation based on the Chronic Kidney Disease Epidemiology Collaboration (CKD-EPI) equation refit without adjustment for race. BUN/Creatinine Ratio 12.9 LAB CHEMISTRY METHOD 08/04/2024 8:04 AM [facility] Calcium 9.2 8.5 - 10.5 mg/dL LAB CHEMISTRY METHOD 08/04/2024 8:04 AM [facility] AST (SGOT) 28 10 - 42 unit/L LAB CHEMISTRY METHOD 08/04/2024 8:04 AM EDT [facility] ALT (SGPT) 29 10 - 60 unit/L LAB CHEMISTRY METHOD 08/04/2024 8:04 AM EDT [facility] Alkaline Phosphatase 119 42 - 121 unit/L LAB CHEMISTRY METHOD 08/04/2024 8:04 AM EDT [facility] Total Protein 6.5 6.0 - 8.0 g/dL LAB CHEMISTRY METHOD 08/04/2024 8:04 AM EDT [facility] Albumin 3.7 3.2 - 5.0 g/dL LAB CHEMISTRY METHOD 08/04/2024 8:04 AM EDT [facility] Total Bilirubin 0.7 0.0 - 1.4 mg/dL LAB CHEMISTRY METHOD 08/04/2024 8:04 AM EDT [facility] Blood Venous blood specimen / Unknown Venipuncture / Unknown 08/04/2024 6:52 AM EDT 08/04/2024 7:18 AM EDT Surinder Villafana MD LAB BLOOD ORDERABLES Final Resu lt [facility] [address] [place] [address], * XR Lumbar Spine 2-3 Views (08/04/2024 6:39 AM EDT) Anatomical Region Laterality Modality Spine, L-spine Radiographic Sayra ging 08/04/2024 8:43 AM EDT Impressions 08/04/2024 8:44 AM EDT Degenerative changes. No acute findings. -------- FINAL REPORT -------- Dictated By: Alessandro Heard Dictated Date: 08/04/2024 08:43 ET Assigned Physician: Alessandro Heard Reviewed and Electronically Signed By: Alessandro Heard Signed Date: 08/04/2024 08:44 ET Workstation ID: [id number] Transcribed By: Self Edit Transcribed Date: 08/04/2024 08:43 ET Narrative 08/04/2024 8:44 AM EDT PROCEDURE: Radiographs of the lumbar spine. HISTORY: pain fall. COMPARISON: None. FINDINGS: Normal alignment. No compression deformity or other evidence of a fracture. Small osteophytes and mild degenerative irregularity of the vertebral endplates. Mild lower lumbar predominant facet arthropathy. No suspicious bony lesion. Atherosclerotic calcifications. Degenerative changes of the right hip with moderate joint space loss along the weightbearing surface. Procedure Note Alessandro Heard MD - 08/04/2024 PROCEDURE: Radiographs of the lumbar spine. HISTORY: pain fall. COMPARISON: None. FINDINGS: Normal alignment. No compression deformity or other evidence of afracture. Small osteophytes and mild degenerative irregularity of thevertebral endplates. Mild lower lumbar predominant facet arthropathy. Nosuspicious bony lesion. Atherosclerotic calcifications. Degenerativechanges of the right hip with moderate joint space loss along theweightbearing surface. IMPRESSION: Degenerative changes. No acute findings. -------- FINAL REPORT -------- Dictated By: Alessandro Heard Dictated Date: 08/04/2024 08:43 ET Assigned Physician: Alessandro Heard Reviewed and Electronically Signed By: Alessandro Heard Signed Date: 08/04/2024 08:44 ET Workstation ID: [id number] Transcribed By: Self Edit Transcribed Date: 08/04/2024 08:43 ET [facility] Archie Villafana MD IMG XR PROCEDURES Final Result from Last 3 Months Insurance MEDICARE MEDICAID - [place] Care Teams Aircraft Assembler Relationship Specialty Start Date End Date Ed Muller MD [address] [place] [address] PCP - General Internal Medicine 06/10/15
== END 2024-08-22 11:59 | disposition home or self-care (01) ==
LOC: HO.HMCH 10:50
PROVIDERS: PCP Internal Medicine; Visit Provider Internal Medicine
DX: I12.9 Hypertensive chronic kidney disease with stage 1 through stage 4 chronic kidney disease, or unspecified chronic kidney disease (principal); E11.22 Type 2 diabetes mellitus with diabetic chronic kidney disease; N18.31 Chronic kidney disease, stage 3a; J44.9 Chronic obstructive pulmonary disease, unspecified; E66.9 Obesity, unspecified; Z68.35 Body mass index [BMI] 35.0-35.9, adult; M54.50 Low back pain, unspecified; E78.00 Pure hypercholesterolemia, unspecified; M1A.9XX1 Chronic gout, unspecified, with tophus (tophi); F41.9 Anxiety disorder, unspecified; F17.200 Nicotine dependence, unspecified, uncomplicated

== ENCOUNTER → 2024-08-22 10:49 | Outpatient (BNVA) | payer MEDICARE, MEDICAID, SELFPAY | PROVIDERS: PCP Internal Medicine; Visit Provider Internal Medicine | DX: M54.50 Low back pain, unspecified (principal); E78.00 Pure hypercholesterolemia, unspecified; I12.9 Hypertensive chronic kidney disease with stage 1 through stage 4 chronic kidney disease, or unspecified chronic kidney disease; E11.22 Type 2 diabetes mellitus with diabetic chronic kidney disease; N18.31 Chronic kidney disease, stage 3a; M1A.9XX1 Chronic gout, unspecified, with tophus (tophi); J44.9 Chronic obstructive pulmonary disease, unspecified; F41.9 Anxiety disorder, unspecified; E66.9 Obesity, unspecified; Z68.35 Body mass index [BMI] 35.0-35.9, adult; F17.200 Nicotine dependence, unspecified, uncomplicated; Z71.6 Tobacco abuse counseling; Z71.3 Dietary counseling and surveillance | CPT/HCPCS: 96127; 99212 ==

== ENCOUNTER 2024-10-07 11:26 | Outpatient (AMB) | payer MEDICARE, MEDICAID, SELFPAY ==
[2024-10-07 12:32] VITALS: BP 112/82; PULSE 109; O2SAT 97; BMI 34.7
--- NOTE | 2024-10-07 12:32 | MHC.PC.OV ---
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 Accompanied by: Self / Same As Patient Allergies codeine Allergy (Mild, Verified 10/07/24 13:03) Itching gabapentin Allergy (Mild, Verified 10/07/24 13:03) Rash mushroom Allergy (Mild, Verified 10/07/24 13:03) Vomiting nortriptyline Allergy (Mild, Verified 10/07/24 13:03) Nightmare mushrooms Allergy (Mild, Uncoded 10/07/24 13:03) Vomiting Medication List - Last Reconciled 10/07/24 by Flakito Wing MD albuterol sulfate 90 mcg/actuation (Ventolin HFA) 2 puffs PO Q6H PRN amitriptyline 100 mg PO DAILY atorvastatin 20 mg PO DAILY colchicine 0.3 mg PO DAILY PRN cyclobenzaprine 5 mg PO TID PRN diphenhydramine HCl mg PO folic acid 1 mg PO DAILY hydrocortisone 2.5% topical hydroxyzine HCl 25 mg PO TID PRN ketoconazole 2% 1 appl topical Krystexxa (pegloticase) 8 mg IV Q2W NS methotrexate sodium 15 mg (6 x 2.5 mg) PO QWEEK metoprolol succinate ER 25 mg PO DAILY nystatin 1 appl topical TID 10 days sodium chloride 0.9 % (flush) (BD PosiFlush Normal Saline 0.9 % injection syringe) mL IV Tobacco use date assessed: 10/07/24 Dental Screening Dental Screen Date: 10/07/24 Did you have a dental visit in the last 12 months?: No Did you have a dental problem in the last 6 months where you did not have access to dental care?: No Was dental information given to patient?: No HPI Janny 09/28 sore throat HPI Details Patient comes in today for his HDF follow up visit States that he went to the ER at [facility] about 10 days ago on 09/27/2024 for increased sore throat He was reportedly treated and discharged back home with some medications, which she can not recall and we presently do not have any copy of his aforementioned ER visit but we do have a copy of his ER visit to [facility] last month on 09/10/2024 At this visit, he was intoxicated and reportedly called the ambulance and self and made some suicidal ideation comments, for which he was picked up and brought to the ER for further evaluation He had some routine evaluation done, which came back normal He then slept at the ER for few hours and upon waking up, was no longer intoxicated and states that he has no plans of hurting himself and he was eventually discharged back home States that his throat still feels like it is closing up sometimes at present Notes that he also often wakes up gasping for air when he sleeping at night Adds that he still has recurrent SEO; denies any dizziness Denies any chest pains, no increased shortness of breath but he still reports experiencing on and off cough and coughs up minimal phlegm at times No nausea/vomiting, no abdominal pain No change in bowel habits noted States that he has again quit drinking alcohol about 3.5 weeks ago since his ER visit last month [facility] Medical History (Updated 10/07/24 @ 13:02 by Flakito Wing MD) GERD without esophagitis Anxiety Chronic kidney disease (CKD), stage III (moderate) Diabetes mellitus Obesity (BMI 30-39.9) Smoker COPD (chronic obstructive pulmonary disease) Pure hypercholesterolemia Benign essential hypertension Chronic tophaceous gout Surgical History History of lung surgery History of left knee replacement Family History Mother Diabetes Arthritis Father Gout Social History Housing: House Alcohol intake: current Alcohol intake frequency: holidays/special occasions only Alcohol type: beer Patient Tobacco Use Status: Current everyday Tobacco user Tobacco use type: Cigarette Cigarette Packs Per Day: 0.5 Cigarettes Per Day: 10 e-Cigarette/Vaping Use: Never Used Second Hand Smoke Exposure: Yes service: No Current occupational status: disabled 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 1. Little interest or pleasure in doing things: more than half the days 2. Feeling down, depressed, or hopeless: not at all 3. Trouble falling or staying asleep, or sleeping too much: several days 4. Feeling tired or having little energy: several days 5. Poor appetite or overeating: not at all 6. Feeling bad about yourself - or that you are a failure or have let yourself or your family down: not at all 7. Trouble concentrating on things, such as reading the newspaper or watching television: not at all 8. Moving or speaking so slowly that other people could have noticed. Or the opposite - being so fidgety or restless that you have been moving around a lot more than usual: not at all 9. Thoughts that you would be better off or of hurting yourself in some way: not at all Total score: 4 Depression Screening Interpretation: Positive Depression Screening Follow-up: Existing condition and In treatment Depression Screening Done: Yes 81065 - PHQ-9 Billing: Yes Source: Developed by Drs. Manuel Fox, Marlen Resendiz, Maco Wood and colleagues, with an educational poli from [employer] Thrive Questionnaire Date Thrive assessed: 10/07/24 I am a: Patient What is your living situation today?: I have a steady place to live Within the past 12 months, did the food you bought not last and you didn't have the money to get more?: Never true Within the past 12 months, did you worry whether your food would run out before you got money to buy more?: Never true Do you have trouble paying for medicines?: No Do you have trouble getting transportation to medical appointments?: Yes Do you have trouble paying your heating and electricity bill?: No Do you have trouble taking care of your child, family member or friend?: No Do you have trouble with day-to-day activities such as bathing, preparing meals, shopping, managing finances, etc.?: No Are you currently unemployed and looking for a job?: No Are you interested in more education?: Yes Please select the resources that you would like help with: None Currently or been in a relationship where the following occur: No concerns reported THRIVE Score: 1 AUDIT C Alcohol Use Questionnaire (AUDIT-C) 1. How often do you have a drink containing alcohol?: Monthly or less 2. How many drinks containing alcohol do you have on a typical day when you are drinking?: 1 or 2 3. How often do you have six or more drinks on one occasion?: Never Total Score: 1 Score Reviewed/Action Taken: Yes SURAJ-7 AMB Questionnaire SURAJ-7 Date SURAJ - 7 assessed: 10/07/24 Feeling nervous, anxious, or on edge: 1 = Several days Not being able to stop or control worryin = Not at all Worrying too much about different things: 0 = Not at all Trouble relaxin = Not at all Being so restless that it is hard to sit still: 1 = Several days Becoming easily annoyed or irritable: 0 = Not at all Feeling afraid as if something awful might happen: 0 = Not at all Total SURAJ-7 score (0-4 normal; 5-9 mild; 10-14 moderate; 15-21 severe): 2 Source: Developed by Drs. Manuel Fox, Marlen Resendiz, Maco Wood and colleagues, with an educational poli from [employer]. Review of Systems Const Denies chills, Denies fatigue, Denies fever(s), Reports headache(s) (recurrent) and Reports stops breathing during sleep (feels like he wakes up gasping for air often) ENT Denies dysphagia, Denies dizziness, Reports headache(s) (recurrent), Denies neck pain, Denies odynophagia, Reports sore throat (mild) and Denies throat swelling (but feels like his throat is closing up at times) Card Denies chest pain, Denies rapid heart rate, Denies palpitations and Denies dyspnea Resp Denies chest congestion, Reports cough (on and off; coughs up minimal phlegm at times), Denies dyspnea and Denies wheezing GI Denies abdominal pain, Denies constipation, Denies dysphagia, Denies heartburn, Denies diarrhea, Denies nausea, Denies odynophagia and Denies vomiting Denies difficulty urinating, Denies dysuria, Denies nocturia and Denies urinary frequency Musc Details: (+) multiple joint deformities, especially of the fingers on both hands, due to chronic tophaceous gout; (+) occasional pain over his left wrist and left arm (had wrist fracture and underwent surgery months ago) Reports back pain (on and off lately, especially on the left side), Reports arthralgias (chronic - involving multiple joints especially of his fingers), Reports limited range of motion and Denies neck pain Skin/Breast Denies rash Neuro Denies dizziness and Reports headache(s) (recurrent) Psych Reports anxiety Endo Denies fatigue and Denies palpitations Aller/Immun Denies throat swelling (but feels like his throat is closing up at times) and Denies wheezing Physical exam (Primary Care) Vital Signs: Last Vital Signs Pulse 109 H 10/07/24 12:32 BP 112/82 10/07/24 12:32 Pulse Ox 97 10/07/24 12:32 Oxygen Delivery Method Room Air 10/07/24 12:32 BMI result Body Mass Index 34.7 Tobacco/Smoking Status: Tobacco use Status Tobacco use date assessed 10/07/24 10/07/24 12:42 Patient Tobacco Use Status Current everyday Tobacco 10/07/24 12:42 Tobacco use type Cigarette 10/07/24 12:42 e-Cigarette/Vaping Use Never Used 10/07/24 12:42 PHQ-9: PHQ-9 Score PHQ-9: Total score 4 10/07/24 12:55 Depression Screening Interpretation: Positive Depression Screening Follow-up: Existing condition and In treatment Thrive Assessment: Date of Thrive Assessment Date Thrive assessed 10/07/24 10/07/24 12:42 Currently or been in a relationship where the following occur: No concerns reported Const General: no acute distress and alert HENMT Ears: TM's normal bilaterally and EAC's normal Throat: Yes posterior oropharynx normal and Yes tonsils normal (no TP congestion noted) Neck Neck: Yes supple and No lymphadenopathy Thyroid: Thyroid normal Resp Auscultation: no crackles, no rales, rhonchi (scattered) throughout, wheezes expiratory wheezes and throughout and diminished lung sounds bilateral Cardio Rate: regular rate Rhythm: regular rhythm Heart sounds: no murmurs GI Palpation (GI): Soft to palpation and nontender Auscultation: normal bowel sounds General: Yes no CVA tenderness Back/Spine/Pelvis Back: no CVA tenderness Thoracic/Lumbar Spine: paraspinal muscle tenderness bilaterally (worse on the left side) in the mid lumbar and in the lower lumbar and No lumbar spinal tenderness Skin Rashes: no rashes Extrem Other: (+) multiple joint deformities and tenderness, involving multiple fingers on both hands (with swelling/enlargement of IPs), ankles and knees; (+) large fluctuant cysts on the elbows bilaterally General: Yes no clubbing, cyanosis or edema Coding Level of Care Code Est Pt Level 4 (05799) Diagnoses COPD exacerbation J44.1 GERD without esophagitis K21.9 Chronic tophaceous gout M1A.[id number] Bilateral low back pain without sciatica, unspecified chronicity M54.50 Chronicity: unspecified Back pain laterality: bilateral Sciatica presence: without sciatica Pure hypercholesterolemia E78.00 Benign essential hypertension I10 Type 2 diabetes mellitus without complication, without long-term current use of insulin E11.9 Diabetes mellitus type: type 2 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: without senior care use Diabetes mellitus complication status: without complication Stage 3a chronic kidney disease N18.31 Chronic kidney disease stage 3 subtype: stage 3a (GFR 45-59) Anxiety F41.9 Smoker F17.200 Obesity (BMI 30-39.9) E66.9 Additional Codes PHQ-9 - 52487 - PHQ-9 Billing: Yes ([id number]) Assessment & Plan Assessment & Plan (1) COPD exacerbation: Code(s): J44.1 - Chronic obstructive pulmonary disease with (acute) exacerbation Category: Medical Plan: Patient is advised that his COPD currently appears to be inadequately or poorly controlled this is likely the main reason for most of his aforementioned symptoms, including his recurrent cough with phlegm, sensation of his throat closing up on him when he is sleeping at night, and his trouble swallowing at times We will go ahead and start him empirically on oral Azithromycin QD x 5 days and oral Prednisone taper Continue Albuterol HFA 2 inhalations Q 6 hours PRN (2) GERD without esophagitis: Code(s): K21.9 - Gastro-esophageal reflux disease without esophagitis Category: Medical Plan: Dietary restrictions reinforced Will start him on Pantoprazole 40 mg QD (3) Chronic tophaceous gout: Comment: dx at age 14 Numerous medications including allopurinol, Uloric, probenecid, colchicine Krystexxa started fall- until 01/2023 with reduction of tophi size. uric acid level increased from undetectable to 12.3 1 month after Krystexxa was stopped Krystexxa restarted 03/2023 effective Code(s): M1A.9XX1 - Chronic gout, unspecified, with tophus (tophi) Category: Medical Plan: Reinforced low purine diet Continue Methotrexate 15 mg once a week and Krystexxa 8 mg IV every 2 weeks - he has been doing very well on his current meds for over a year now and that he's had no significant gout flare ups since he was started on his current meds His uric acid level again came back very low (<0.2) on his labs done back in May 2024 Follow up with [facility] Rheumatology as scheduled (4) Low back pain: Code(s): M54.50 - Low back pain, unspecified Category: Medical Qualifiers: Chronicity: unspecified Back pain laterality: bilateral Sciatica presence: without sciatica Qualified Code(s): M54.50 - Low back pain, unspecified Plan: Improved Continue Cyclobenzaprine 5 mg TID PRN We also referred him to physical therapy for further evaluation and management, which he states helped a lot (5) Pure hypercholesterolemia: Code(s): E78.00 - Pure hypercholesterolemia, unspecified Category: Medical Plan: Patient states that he had his follow-up labs done at [facility] a few months ago but we have not received any of his recent results yet even though we have requested for them previously Reinforced low cholesterol diet Continue Atorvastatin 20 mg QD Will recheck his labs and fasting lipids as scheduled in 3 months for follow up (6) Benign essential hypertension: Code(s): I10 - Essential (primary) hypertension Category: Medical Plan: Reinforced low sodium diet - goal is systolic BP of 120 to 130 mm or less Continue Metoprolol ER 25 mg QD (7) Diabetes mellitus: Code(s): E11.9 - Type 2 diabetes mellitus without complications Category: Medical Qualifiers: Diabetes mellitus type: type 2 Diabetes mellitus senior care insulin use: without intermodal truck driver use Diabetes mellitus complication status: without complication Qualified Code(s): E11.9 - Type 2 diabetes mellitus without complications Plan: His HgbA1c was most recently at 5.5% when last checked in November 2023 (his HgbA1c was at 5.7% when previously checked in February 2023) - goal is at ideally <6.5% Reinforced diabetic diet Patient is currently still on NO Rx for diabetes and is just maintaining/controlling his diabetes with diet modification alone (8) Chronic kidney disease (CKD), stage III (moderate): Code(s): N18.30 - Chronic kidney disease, stage 3 unspecified Category: Medical Qualifiers: Chronic kidney disease stage 3 subtype: stage 3a (GFR 45-59) Qualified Code(s): N18.31 - Chronic kidney disease, stage 3a Plan: His CKD is most likely multifactorial, including due to his HTN and DM as well as his significantly elevated uric acid burden and intractable gout for years Reinforced adequate hydration Follow up with nephrology (Dr. Hunt) as scheduled (9) Anxiety: Code(s): F41.9 - Anxiety disorder, unspecified Category: Medical Plan: Continue Hydroxyzine 25 mg TID PRN (10) Smoker: Code(s): F17.200 - Nicotine dependence, unspecified, uncomplicated Category: Social Hx Plan: Patient is counseled again on complete smoking cessation (11) Obesity (BMI 30-39.9): Code(s): E66.9 - Obesity, unspecified Category: Medical Plan: Reinforced diet and weight loss; exercise does not appear to be a realistic option due to patient's joint deformities and chronic joint pains Plan Follow up as scheduled in December 2024 Medications: New prednisone 4 tablets x 3 days, then 3 tablets x 3 days, then 2 tablets x 3 days, then 1 tablet x 3 days 33 ea 0RF 12 days J45.901 - Unspecified asthma with (acute) exacerbation, M25.50 - Pain in unspecified joint azithromycin take 500 mg today (day 1), then 250 mg for 4 days (days 2-5) PO 6 tabs 0RF pantoprazole 40 mg PO DAILY 30 tabs 3RF 30 days
--- OUTSIDE RECORDS SUMMARY | 2024-10-07 12:34 | XMS_ITS | Clinical Summary ---
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 Name Role Phone Ed Muller MD Primary [...] Encounters Date Type Department Care Team Description 09/27/2024 9:59 AM EDT - 09/27/2024 2:04 PM EDT Emergency [facility] Emergency [address] [place] [address] Sanchez Clifford MD Laryngitis (Primary Dx); Shortness of breath; Throat pain Discharge Disposition: Home or Self Care 08/04/2024 5:45 AM EDT - 08/04/2024 5:18 PM EDT Emergency [facility] Emergency [address] [place] [address] Surinder Villafana MD Chambers, Patrick, [...] Sign Reading Time Taken Comments Blood Pressure 128/78 09/27/2024 1:32 PM EDT Pulse 83 09/27/2024 1:32 PM EDT Temperature 36.5 C (97.7 F) 09/27/2024 1:32 PM EDT Respiratory Rate 18 09/27/2024 1:32 PM EDT Oxygen Saturation 93% 09/27/2024 1:32 PM EDT Inhaled Oxygen Concentration - - Weight 117 kg (257 lb) 09/27/2024 9:58 AM EDT Height 177.8 cm (5' 10 ) 09/27/2024 9:58 AM EDT Body Mass Index 36.88 09/27/2024 9:58 AM EDT Plan of Treatment Health Maintenance Due Date Last Done Comments Hepatitis A Vaccines (1 of 2 - Risk 2-dose series) 1985 Hepatitis B Vaccines (1 of 3 - 19+ 3-dose series) 1985 Zoster Vaccines (1 of 2) 2016 Pneumococcal Vaccine: 50+ Years (2 of 2 - PCV) 12/25/2018 12/25/2017 COVID-19 Vaccine (3 - Modern a risk series) 10/25/2020 09/27/2020, 08/26/2020 Depression Screening 02/27/2024 Cholesterol Screening (Lipid Panel) 05/01/2024 Colorectal Cancer Screening: Colonoscopy 05/01/2024 HIV Screening 05/01/2024 Hepatitis C Screening 05/01/2024 Medicare Annual Wellness Visit 05/01/2024 Social Influencers of Health Screening 05/01/2024 Influenza Vaccine (#1) 2024 Hypertension/CHF/CAD Annual BMP Blood Test 09/27/2025 09/27/2024, 08/04/2024, 04/30/2024 DTaP,Tdap,and Td Vaccines (3 - Td or Tdap) 12/04/2026 12/04/2016, 03/14/2013 HIB Vaccines Aged Out No longer eligi [...] Name Priority Date/Time Associated Diagnosis Comments CT NECK SOFT TISSUE W CONTRAST STAT 09/27/2024 11:50 AM EDT XR CHEST 2 VIEWS STAT 09/27/2024 11:0 5 AM EDT D-DIMER STAT 09/27/2024 10:52 AM EDT ECG 12-LEAD STAT 09/27/2024 10:28 AM EDT CBC WITH AUTO DIFFERENTIAL STAT 09/27/2024 10:21 AM EDT TROPONIN I HIGH SENSITIVITY Timed 09/27/2024 10:21 AM EDT B-TYPE NATRIURETIC PEPTIDE STAT 09/27/2024 10:21 AM EDT BASIC METABOLIC PANEL STAT 09/27/2024 10:21 AM EDT CBC AND DIFFERENTIAL STAT 09/27/2024 10:21 AM EDT CULTURE THROAT STAT 09/27/2024 10:14 AM EDT RAPID STREP A SCREEN STAT 09/27/2024 10:14 AM EDT RESPIRATORY VIRUS PANEL MOLECULAR STUDY STAT 09/27/2024 10:[address] CHEST/ABDOMEN/PELVIS W CONTRAST STAT 08/04/2024 1:12 [...] from Last 3 Months Results * CT Neck Soft Tissue w Contrast (09/27/2024 11:50 AM EDT) Anatomical Region Laterality Modality Head and Neck Computed Tomogra phy 09/27/2024 12:3 3 PM EDT Impressions 09/27/2024 12:46 PM EDT Mucosal thickening and edema throughout the supraglottic larynx and larynx compatible with laryngitis/pharyngitis. No mass or abscess. Atherosclerotic plaque at the right greater than left carotid bulbs with greater than 70% narrowing at the proximal right cervical internal carotid artery. A copy of this report will be provided to the [facility]Eval Program. -------- FINAL REPORT -------- Dictated By: DALTON CASAS Dictated Date: 09/27/2024 12:33 ET Assigned Physician: DALTON CASAS Reviewed and Electronically Signed By: DALTON CASAS Signed Date: 09/27/2024 12:46 ET Workstation ID: [id number] Transcribed By: Self Edit Transcribed Date: 09/27/2024 12:33 ET Narrative 09/27/2024 12:46 PM EDT PROCEDURE: Neck CTA INDICATION: Throat pain voice changes; TECHNIQUE: Chest CT with intravenous administration of 90cc ISOVUE 370. Multi planar reformats were created and interpreted. The examination was performed utilizing dose reduction techniques. Total DLP 326 COMPARISON: No priors available. FINDINGS: There is diffusely edematous structures throughout the larynx and supraglottic larynx including the mucosal surfaces of the piriform sinuses and epiglottis. No discrete mass or fluid collection. No peritonsillar or retropharyngeal fluid collections. Parotid and submandibular glands are normal. Thyroid gland is normal. No cervical lymphadenopathy. Visualized intracranial structures, sinuses, and mastoids are normal. Right lens implant. Visualized portions of the orbits are otherwise within normal limits. Small metallic foreign body noted in the right cheek. Paraspinal muscles are normal. Mild degenerative changes seen throughout the cervical spine. Major vascular structures opacify normally with contrast. There is carotid bulb calcification bilaterally with narrowing of the right greater than left proximal cervical internal carotid arteries. Narrowing of the right cervical internal carotid artery is greater than 70%. Less than 50% narrowing seen at the left cervical internal carotid artery. The lung apices are clear. Old healed right clavicular fracture deformity noted. Procedure Note Dalton Casas MD - 09/27/2024 PROCEDURE: Neck CTA INDICATION: Throat pain voice changes; TECHNIQUE: Chest CT with intravenous administration of 90cc ISOVUE 370.Multi planar reformats were created and interpreted. The examination wasperformed utilizing dose reduction techniques. Total DLP 326 COMPARISON: No priors available. FINDINGS: There is diffusely edematous structures throughout the larynx andsupraglottic larynx including the mucosal surfaces of the piriform sinusesand epiglottis. No discrete mass or fluid collection. No peritonsillar or retropharyngeal fluid collections. Parotid and submandibular glands are normal. Thyroid gland is normal. No cervical lymphadenopathy. Visualized intracranial structures, sinuses, and mastoids are normal. Right lens implant. Visualized portions of the orbits are otherwisewithin normal limits. Small metallic foreign body noted in the right cheek. Paraspinal muscles are normal. Mild degenerative changes seen throughoutthe cervical spine. Major vascular structures opacify normally with contrast. There iscarotid bulb calcification bilaterally with narrowing of the right greaterthan left proximal cervical internal carotid arteries. Narrowing of theright cervical internal carotid artery is greater than 70%. Less than 50%narrowing seen at the left cervical internal carotid artery. The lung apices are clear. Old healed right clavicular fracture deformitynoted. IMPRESSION: Mucosal thickening and edema throughout the supraglottic larynx and larynxcompatible with laryngitis/pharyngitis. No mass or abscess. Atherosclerotic plaque at the right greater than left carotid bulbs withgreater than 70% narrowing at the proximal right cervical internal carotidartery. A copy of this report will be provided to the [facility] FINDProgram. -------- FINAL REPORT -------- Dictated By: DALTON CASAS Dictated Date: 09/27/2024 12:33 ET Assigned Physician: DALTON CASAS Reviewed and Electronically Signed By: DALTON CASAS Signed Date: 09/27/2024 12:46 ET Workstation ID: [id number] Transcribed By: Self Edit Transcribed Date: 09/27/2024 12:33 ET aSnchez Clifford MD IMG CT PROCEDURES Final Result * XR Chest 2 Views (09/27/2024 11:05 AM EDT) Anatomical Region Laterality Modality Body Radiographic Sayra ging 09/27/2024 11:5 0 AM EDT Impressions 09/27/2024 11:50 AM EDT FINDINGS/IMPRESSION: Lungs are clear. No pleural effusion or pneumothorax. Cardiac silhouette is normal in size. Bones are similar compared to prior with old left rib fracture deformities and fixation hardware in place. No acute displaced fracture. Degenerative changes seen throughout the bones. -------- FINAL REPORT -------- Dictated By: DALTON CASAS Dictated Date: 09/27/2024 11:50 ET Assigned Physician: DALTON CASAS Reviewed and Electronically Signed By: DALTON CASAS Signed Date: 09/27/2024 11:50 ET Workstation ID: [id number] Transcribed By: Self Edit Transcribed Date: 09/27/2024 11:50 ET Narrative 09/27/2024 11:50 AM EDT XR CHEST 2 VIEWS INDICATION: Dyspnea TECHNIQUE: XR CHEST 2 VIEWS COMPARISON: 08/04/2024 Procedure Note Dalton Casas MD - 09/27/2024 XR CHEST 2 VIEWS INDICATION: Dyspnea TECHNIQUE: XR CHEST 2 VIEWS COMPARISON: 08/04/2024 IMPRESSION: FINDINGS/IMPRESSION: Lungs are clear. No pleural effusion orpneumothorax. Cardiac silhouette is normal in size. Bones are similarcompared to prior with old left rib fracture deformities and fixationhardware in place. No acute displaced fracture. Degenerative changesseen throughout the bones. -------- FINAL REPORT -------- Dictated By: DALTON CASAS Dictated Date: 09/27/2024 11:50 ET Assigned Physician: DALTON CASAS Reviewed and Electronically Signed By: DALTON CASAS Signed Date: 09/27/2024 11:50 ET Workstation ID: [id number] Transcribed By: Self Edit Transcribed Date: 09/27/2024 11:50 ET Sanchez Clifford MD IMG XR PROCEDURES Final Result * (ABNORMAL) D-dimer, quantitative (09/27/2024 10:52 AM EDT) D-Dimer, Quant (D-DU) 290(H) <=230 ng/mL DDU LAB COAGULATION METHOD 09/27/2024 11:17 AM EDT [facility] Blood Venous blood specimen / Unknown Venipuncture / Unknown 09/27/2024 10:52 AM EDT 09/27/2024 11:00 AM EDT Narrative [facility] - 09/27/2024 11:17 AM EDT D-Dimer <230 ng/mL (D-Dimer units) is the threshold for exclusion of DVT/PE. D-Dimer may be elevated in: Critically ill, severely infected, trauma patients, DIC, acute CVA, acute DC, unstable angina, AF, old age, , and smoking. D-Dimer may be decreased with: Initiation of heparin therapy and oral anticoagulants. Sanchez Clifford MD LAB BLOOD ORDERABLES Final Resu lt Performing Organization Address [facility] Co de Phone Number [facility] [address] [place] [address], [place] [phone] * ECG 12 lead (09/27/2024 10:28 AM EDT) [facility] Ventricular Rate ECG 100 BPM GEMUSE Atrial Rate 100 BPM GEMUSE P-R Interval 148 ms GEMUSE QRS Duration 92 ms GEMUSE Q-T Interval 342 ms GEMUSE QTc 441 ms GEMUSE P Wave [place] 1 degrees GEMUSE R [place] 15 degrees GEMUSE T [place] 55 degrees GEMUSE ECG Interpretation Normal sinus rhythm Normal ECG No previous ECGs available Confirmed by MD Peter, Phani ([id number]) on 09/27/2024 9:59:00 PM GEMUSE 09/27/2024 10:2 8 AM EDT 09/27/2024 9:59 PM EDT Sanchez Clifford MD ECG ORDERABLES Final Result Performing Organization Address [facility] Co de Phone Number GEMUSE * Troponin I high sensitivity (09/27/2024 10:21 AM EDT) [facility] High Sensitivity Troponin I 8 <=79 ng/L LAB CHEMISTRY METHOD 09/27/2024 11:15 AM EDT [facility] Blood Venous blood specimen / Unknown Venipuncture / Unknown 09/27/2024 10:21 AM EDT 09/27/2024 10:42 AM EDT Narrative [facility] - 09/27/2024 11:15 AM EDT High levels of biotin in samples may falsely decrease hsTroponin values. Use caution when interpreting hsTroponin results in patients taking biotin who exhibit renal impairment (eGFR <60) or in patients taking more than 20 mg/day of biotin. us Sanchez Clifford MD LAB BLOOD ORDERABLES Final Resu lt [facility] [address] [place] [address], [place] [phone] * (ABNORMAL) CBC auto differential (09/27/2024 10:21 AM EDT) Only the most recent of2 resultswithin the time period is included. WBC 12.3(H) 4.8 - 10.8 K/mcL LAB HEMETOLOGY METHOD 09/27/2024 11:09 AM EDT [facility] RBC 3.90(L) 4.50 - 5.50 M/mcL LAB HEMETOLOGY METHOD 09/27/2024 11:09 AM [facility] Hemoglobin 13.8 13.5 - 17.5 g/dL LAB HEMETOLOGY METHOD 09/27/2024 11:09 AM [facility] Hematocrit 41.4(L) 42.0 - 54.0 % LAB HEMETOLOGY METHOD 09/27/2024 11:09 AM [facility] MCV 105.9(H) 79.0 - 98.0 FL LAB HEMETOLOGY METHOD 09/27/2024 11:09 AM [facility] MCH 35.3(H) 27.0 - 32.0 pcg LAB HEMETOLOGY METHOD 09/27/2024 11:09 AM [facility] MCHC 33.3 32.0 - 37.0 g/dL LAB HEMETOLOGY METHOD 09/27/2024 11:09 AM [facility] RDW 14.1 11.0 - 15.0 % LAB HEMETOLOGY METHOD 09/27/2024 11:09 AM [facility] Platelets 261 130 - 400 K/mcL LAB HEMETOLOGY METHOD 09/27/2024 11:09 AM [facility] MPV 9.3 7.0 - 11.0 FL LAB HEMETOLOGY METHOD 09/27/2024 11:09 AM [facility] NRBC 0.0 <1.0 % LAB HEMETOLOGY METHOD 09/27/2024 11:09 AM [facility] NRBC Absolute 0.00 <0.10 K/mcL LAB HEMETOLOGY METHOD 09/27/2024 11:09 AM [facility] Neutrophils Relative 75.6 % LAB HEMETOLOGY METHOD 09/27/2024 11:09 AM [facility] Lymphocytes Relative 15.1 % LAB HEMETOLOGY METHOD 09/27/2024 11:09 AM [facility] Monocytes Relative 7.1 % LAB HEMETOLOGY METHOD 09/27/2024 11:09 AM [facility] Eosinophils Relative 1.1 % LAB HEMETOLOGY METHOD 09/27/2024 11:09 AM [facility] Basophils Relative 0.5 % LAB HEMETOLOGY METHOD 09/27/2024 11:09 AM [facility] Immature Granulocytes Relative 0.6 % LAB HEMETOLOGY METHOD 09/27/2024 11:09 AM [facility] Neutrophils Absolute 9.32(H) 1.50 - 7.00 K/mcL LAB HEMETOLOGY METHOD 09/27/2024 11:09 AM [facility] Lymphocytes Absolute 1.86 1.00 - 5.00 K/mcL LAB HEMETOLOGY METHOD 09/27/2024 11:09 AM [facility] Monocytes Absolute 0.87 0.20 - 1.00 K/mcL LAB HEMETOLOGY METHOD 09/27/2024 11:09 AM [facility] Eosinophils Absolute 0.13 0.00 - 0.50 K/mcL LAB HEMETOLOGY METHOD 09/27/2024 11:09 AM EDT [facility] Basophils Absolute 0.06 0.00 - 0.20 K/[facility] LAB HEMETOLOGY METHOD 09/27/2024 11:09 AM EDT [facility] Immature Granulocytes Absolute 0.07(H) 0.00 - 0.03 K/[facility] LAB HEMETOLOGY METHOD 09/27/2024 11:09 AM EDT [facility] Blood Venous blood specimen / Unknown Venipuncture / Unknown 09/27/2024 10:21 AM EDT 09/27/2024 10:42 AM EDT us Sanchez Clifford MD LAB BLOOD ORDERABLES Final Resu lt Performing Organization Address [facility]/ZIP Co de Phone Number [facility] [address] [place] [address], * B-type natriuretic peptide (09/27/2024 10:21 AM EDT) BNP 24 <=100 pcg/mL LAB CHEMISTRY METHOD 09/27/2024 11:22 AM EDT [facility] Blood Venous blood specimen / Unknown Venipuncture / Unknown 09/27/2024 10:21 AM EDT 09/27/2024 10:42 AM EDT us Sanchez Clifford MD LAB BLOOD ORDERABLES Final Resu lt [facility] [address] [place] [address], [place] [phone] * (ABNORMAL) Basic metabolic panel (09/27/2024 10:21 AM EDT) Sodium 137 133 - 145 mmol/L LAB CHEMISTRY METHOD 09/27/2024 11:11 AM EDT [facility] Potassium 3.6 3.5 - 5.5 mmol/L LAB CHEMISTRY METHOD 09/27/2024 11:11 AM [facility] Chloride 106 96 - 110 mmol/L LAB CHEMISTRY METHOD 09/27/2024 11:11 AM [facility] CO2 20(L) 21 - 32 mmol/L LAB CHEMISTRY METHOD 09/27/2024 11:11 AM [facility] Anion Gap 11 3 - 11 LAB CHEMISTRY METHOD 09/27/2024 11:11 AM [facility] Glucose 163(H) 70 - 100 mg/dL LAB CHEMISTRY METHOD 09/27/2024 11:11 AM [facility] BUN 17 5 - 25 mg/dL LAB CHEMISTRY METHOD 09/27/2024 11:11 AM [facility] Creatinine 1.09 0.70 - 1.30 mg/dL LAB CHEMISTRY METHOD 09/27/2024 11:11 AM [facility] eGFR 79 >=60 mL/min/1. 73m2 LAB CHEMISTRY METHOD 09/27/2024 11:11 AM [facility] Comment:Calculation based on the Chronic Kidney Disease Epidemiology Collaboration (CKD-EPI) equation refit without adjustment for race. BUN/Creatinine Ratio 15.6 LAB CHEMISTRY METHOD 09/27/2024 11:11 AM [facility] Calcium 8.8 8.5 - 10.5 mg/dL LAB CHEMISTRY METHOD 09/27/2024 11:11 AM [facility] Blood Venous blood specimen / Unknown Venipuncture / Unknown 09/27/2024 10:21 AM EDT 09/27/2024 10:42 AM EDT us Sanchez Clifford MD LAB BLOOD ORDERABLES Final Resu lt [facility] [address] [place] [address], * Respiratory virus panel molecular study (09/27/2024 10:14 AM EDT) [facility] Adenovirus Detection by PCR Not Detected Not Detected LAB MICROBIOLOGY METHOD 09/27/2024 11:33 AM EDT [facility] Influenza A PCR Not Detected Not Detected LAB MICROBIOLOGY METHOD 09/27/2024 11:33 AM EDT [facility] Influenza B PCR Not Detected Not Detected LAB MICROBIOLOGY METHOD 09/27/2024 11:33 AM EDT [facility] Coronavirus 229E Not Detected Not Detected LAB MICROBIOLOGY METHOD 09/27/2024 11:33 AM EDT [facility] Coronavirus HKU1 Not Detected Not Detected LAB MICROBIOLOGY METHOD 09/27/2024 11:33 AM EDT [facility] Coronavirus OC43 Not Detected Not Detected LAB MICROBIOLOGY METHOD 09/27/2024 11:33 AM EDT [facility] Coronavirus NL63 Not Detected Not Detected LAB MICROBIOLOGY METHOD 09/27/2024 11:33 AM EDT [facility] Parainfluenza Virus 1 Not Detected Not Detected LAB MICROBIOLOGY METHOD 09/27/2024 11:33 AM EDT [facility] Parainfluenza Virus 2 Not Detected Not Detected LAB MICROBIOLOGY METHOD 09/27/2024 11:33 AM EDT [facility] Parainfluenza Virus 3 Not Detected Not Detected LAB MICROBIOLOGY METHOD 09/27/2024 11:33 AM EDT [facility] Parainfluenza Virus 4 Not Detected Not Detected LAB MICROBIOLOGY METHOD 09/27/2024 11:33 AM EDT [facility] RSV PCR Not Detected Not Detected LAB MICROBIOLOGY METHOD 09/27/2024 11:33 AM EDT [facility] Human Metapneumovirus A and B Not Detected Not Detected LAB MICROBIOLOGY METHOD 09/27/2024 11:33 AM EDT [facility] Rhinovirus/Entero virus Not Detected Not Detected LAB MICROBIOLOGY METHOD 09/27/2024 11:33 AM EDT [facility] Bordetella pertussis Not Detected Not Detected LAB MICROBIOLOGY METHOD 09/27/2024 11:33 AM EDT [facility] Bordetella parapertussis Not Detected Not Detected LAB MICROBIOLOGY METHOD 09/27/2024 11:33 AM EDT [facility] Mycoplasma pneumo by PCR Not Detected Not Detected LAB MICROBIOLOGY METHOD 09/27/2024 11:33 AM EDT [facility] Chlamydia pneumoniae Not Detected Not Detected LAB MICROBIOLOGY METHOD 09/27/2024 11:33 AM EDT [facility] SARS COV-2 Not Detected Not Detected LAB MICROBIOLOGY METHOD 09/27/2024 11:33 AM EDT [facility] Swab Both anterior nares / Unknown Non-blood Collection / Unknown 09/27/2024 10:14 AM EDT 09/27/2024 10:23 AM EDT [facility] - 09/27/2024 11:33 AM EDT Testing was performed using the [employer] Respiratory Pathogen PCR Assay. All results must be correlated with the clinical findings. Results should not be used as the sole basis for diagnosis. False Negative results may occur from the presence of sequence variants in the region targeted by the assay or the presence of inhibitors. Results may be affected by concurrent antiviral/antimicrobial therapy or levels of organisms that are below the limit of detection. Sanchez Clifford MD LAB MICROBIOLOGY - GENERAL ANDRIY CORONADO Final Result [facility] [address] [place] [address], * Rapid strep A screen (09/27/2024 10:14 AM EDT) [facility] Strep A Ag Negative Negative, Invalid 09/27/2024 10:59 AM EDT [facility] Comment:Refer to Throat Cult ure. Swab Structure of anterior portion of neck / Unknown Non-blood Collection / Unknown 09/27/2024 10:14 AM EDT 09/27/2024 10:23 AM EDT Sanchez Clfiford MD LAB MICROBIOLOGY - GENERAL ORDE RABMARIANNE Final Result Performing Organization Address City/[facility]/ZIP Co de Phone Number [facility] [address] [place] [address], [place] [phone] * Culture throat (09/27/2024 10:14 AM EDT) Culture, Throat No pathogens isolated. 09/29/2024 12:38 PM EDT [facility] Swab Structure of anterior portion of neck / Unknown Non-blood Collection / Unknown 09/27/2024 10:14 AM EDT 09/27/2024 10:23 AM EDT Sanchez Clifford MD LAB MICROBIOLOGY - GENERAL LAUREANOE IVONNE Final Result Performing Organization Address [facility]/ZIP Co de Phone Number [facility] [address] [place] [address], [place] [phone] * CT Chest/Abdomen/Pelvis w Contrast (08/04/2024 1:12 [...] Signed Date: 08/04/2024 14:30 ET Workstation ID: [id number] Transcribed By: Self Edit Transcribed Date: 08/04/2024 14:09 ET Narrative 08/04/2024 2:[address] CHEST, ABDOMEN AND PELVIS WITH CONTRAST INDICATION: Polytrauma, critical, [id number] injury suspected TECHNIQUE: Chest, abdomen and pelvis [...] AND PELVIS WITH CONTRAST INDICATION: Polytrauma, critical, [id number] injury suspected TECHNIQUE: Chest, abdomen and pelvis [...] Signed Date: 08/04/2024 14:30 ET Workstation ID: [id number] Transcribed By: Self Edit Transcribed Date: 08/04/2024 [...] Signed Date: 08/04/2024 07:59 ET Workstation ID: [id number] Transcribed By: Self Edit Transcribed Date: 08/04/2024 [...] Signed Date: 08/04/2024 07:59 ET Workstation ID: [id number] Transcribed By: Self Edit Transcribed Date: 08/04/2024 07:57 ET us [address]YER CT PROCEDURES Final Result * Lipase (08/04/2024 6:52 AM EDT) Lipase 49 13 - 75 unit/L LAB CHEMISTRY METHOD 08/04/2024 8:04 AM EDT [facility] Blood Venous blood specimen / Unknown Venipuncture / Unknown 08/04/2024 6:52 AM EDT 08/04/2024 7:18 AM EDT us Surinder Villafana MD LAB BLOOD ORDERABLES Final Resu lt [facility] [address] [place] [address], [place] [phone] * (ABNORMAL) Ethanol (08/04/2024 6:52 AM EDT) [facility] Ethanol Level 290(H) 0 - 10 mg/dL LAB CHEMISTRY METHOD 08/04/2024 8:04 AM EDT [facility] Blood Venous blood specimen / Unknown Venipuncture / Unknown 08/04/2024 6:52 AM EDT 08/04/2024 7:18 AM EDT us Surinder Villafana MD LAB BLOOD ORDERABLES Final Resu lt Performing Organization Address City/[facility]/ZIP Co de Phone Number [facility] [address] [place] [address], [place] [phone] * (ABNORMAL) Comprehensive Metabolic Panel (CMP) (08/04/2024 6:52 AM EDT) [facility] Sodium 134 133 - 145 mmol/L LAB CHEMISTRY METHOD 08/04/2024 8:04 AM EDT [facility] Potassium 3.8 3.5 - 5.5 mmol/L LAB CHEMISTRY METHOD 08/04/2024 8:04 AM EDT [facility] Chloride 102 96 - 110 mmol/L LAB CHEMISTRY METHOD 08/04/2024 8:04 AM EDT [facility] CO2 21 21 - 32 mmol/L LAB CHEMISTRY METHOD 08/04/2024 8:04 AM [facility] Anion Gap 11 3 - 11 LAB CHEMISTRY METHOD 08/04/2024 8:04 AM [facility] Glucose 134(H) 70 - 100 mg/dL LAB CHEMISTRY METHOD 08/04/2024 8:04 AM [facility] BUN 17 5 - 25 mg/dL LAB CHEMISTRY METHOD 08/04/2024 8:04 AM [facility] Creatinine 1.32(H) 0.70 - 1.30 mg/dL LAB CHEMISTRY METHOD 08/04/2024 8:04 AM [facility] eGFR 63 >=60 mL/min/1. 73m2 LAB CHEMISTRY METHOD 08/04/2024 8:04 AM [facility] Comment:Calculation based on the Chronic Kidney Disease Epidemiology Collaboration (CKD-EPI) equation refit without adjustment for race. BUN/Creatinine Ratio 12.9 LAB CHEMISTRY METHOD 08/04/2024 8:04 AM [facility] Calcium 9.2 8.5 - 10.5 mg/dL LAB CHEMISTRY METHOD 08/04/2024 8:04 AM [facility] AST (SGOT) 28 10 - 42 unit/L LAB CHEMISTRY METHOD 08/04/2024 8:04 AM [facility] ALT (SGPT) 29 10 - 60 unit/L LAB CHEMISTRY METHOD 08/04/2024 8:04 AM [facility] Alkaline Phosphatase 119 42 - 121 unit/L LAB CHEMISTRY METHOD 08/04/2024 8:04 AM [facility] Total Protein 6.5 6.0 - 8.0 g/dL LAB CHEMISTRY METHOD 08/04/2024 8:04 AM [facility] Albumin 3.7 3.2 - 5.0 g/dL LAB CHEMISTRY METHOD 08/04/2024 8:04 AM [facility] Total Bilirubin 0.7 0.0 - 1.4 mg/dL LAB CHEMISTRY METHOD 08/04/2024 8:04 AM EDT [facility] Blood Venous blood specimen / Unknown Venipuncture / Unknown 08/04/2024 6:52 AM EDT 08/04/2024 7:18 AM EDT us Surinder Villafana MD LAB BLOOD ORDERABLES Final Resu lt [facility] [address] [place] [address], [place] [phone] * XR Lumbar Spine 2-3 Views (08/04/2024 6:39 AM EDT) Anatomical Region Laterality Modality Spine, L-spine Radiographic Sayra ging 08/04/2024 8:43 AM EDT Impressions 08/04/2024 8:44 AM EDT Degenerative changes. No acute findings. -------- FINAL REPORT -------- Dictated By: Alessandro eHard Dictated Date: 08/04/2024 08:43 ET Assigned Physician: Alessandro Heard Reviewed and Electronically Signed By: Alessandro Heard Signed Date: 08/04/2024 08:44 ET Workstation ID: [id number] Transcribed By: Self Edit Transcribed Date: 08/04/2024 [...] Signed Date: 08/04/2024 08:44 ET Workstation ID: [id number] Transcribed By: Self Edit Transcribed Date: 08/04/2024 08:43 ET [facility] Archie Villafana MD IMG XR PROCEDURES Final Result from Last 3 Months Insurance MEDICARE MEDICAID - [place] Care Teams Combine Mechanic Relationship Specialty Start Date End Date Ed Muller MD [address] [place] [address] PCP - General Internal Medicine 4/14/16
--- OUTSIDE RECORDS SUMMARY | 2024-10-07 12:34 | XMS_ITS | Clinical Summary ---
Author Organization [facility] Address [address] [place] [id number] Phone Care Team Providers Care Water Quality Tester Name Role Phone Musa Renee MD Primary Care Provider [email or web address] Allergies Active Allergy Reactions Criticality Noted Date Comments Gabapentin Rash Low 05/13/2018 Mushroom Nausea and/or Vomiting Medium 06/19/2017 Nortriptyline Other (See Comments) Medium 05/13/2018 Hallucinations Medications metoprolol succinate (TOPROL-XL) 25 MG 24 hr tablet 1 tablet po daily Active febuxostat (ULORIC) 80 mg TabIndications: gout Take 80 mg by mouth daily. Indications: Gout Active amLODIPine (NORVASC) 10 MG tablet Take 10 mg by mouth daily. Active metFORMIN (GLUCOPHAGE) 500 MG tablet Take 500 mg by mouth daily with breakfast. Active nicotine (NICODERM CQ) 14 mg/[address] 1 patch onto the skin daily. Apply to a clean, dry, hairless site on the upper arm or hip. 30 patch 04/03/2017 Active Active Problems Problem Noted Date Diagnosed Date Pressure ulcer 04/03/2017 Prediabetes 04/01/2017 Assessment & Plan (04/02/2017 5:42 PM EST): Good glycemic control without medication. Single lung abscess 03/29/2017 Assessment & Plan (03/30/2017 4:35 PM EST): Prominent necrotizing pneumonia with increasing O2 requirements. Recommend continue Unasyn. Will repeat CXR in a.m. Pain meds and incentive spirometery. Patient at risk for development of empyema. Keep a close eye on him clinically. He will need at least 3 weeks and probably 6 weeks of antibiotics. This will not necessarily need to be intravenous. And as soon as his clinical syndrome including his chest pain is improved with transition him to Augmentin. We will continue his antibiotics until his chest x-ray has shown complete resolution of the area or demonstrates a stable scar. The patient should be on probiotics as he is at high risk for developing C.difficile infection. Will need to stay in hospital while he needs O2, but currently in such significant chest pain that he can't leave anyway. Assessment & Plan (04/02/2017 5:41 PM EST): No further worsening of the lung abscess. CT scan reviewed. Small pockets of air within the abscess. No empyema. Plan Will discuss with Dr. Mckinney, conversion to oral Augmentin and discharged for close follow-up. This will take 6 weeks of antibiotics to clear and as long as he is improving there is no need for more aggressive intervention. Acute gout of left knee 03/29/2017 Assessment & Plan (03/30/2017 4:24 PM EST): Steroids should be okay as patient does not have any risk factors for fungal pneumonia. I wonder if this is gout or could it possibly be an infected knee? If he doesn't have prompt response to steroid recommend needle aspiration. Assessment & Plan (04/02/2017 5:41 PM EST): No indication of a septic joint. He's improving on prednisone and nonsteroidals. Mild intermittent asthma without complication Assessment & Plan (03/29/2017 7:19 PM EST): patient is not currently on any medications and does not appear to be in exacerbation. Continue to monitor symptoms Essential hypertension 03/29/2017 Assessment & Plan (03/30/2017 10:18 PM EST): Well controlled. continue Norvasc 10 mg by mouth daily Continue metoprolol XL 25 mg by mouth daily Tobacco abuse 03/29/2017 Assessment & Plan (03/29/2017 7:26 PM EST): patient states he smokes 5-6 cigarettes per day. - nicotine patch Resolved Problems Problem Noted Date Diagnosed Date Resolved Date Hypoxia 03/30/2017 04/03/2017 Assessment & Plan (04/01/2017 6:18 PM EST): Possibly due to lung abscess and narcotics. No evidence of reactive airway disease. Cont to wean as tolerated, trended down from 3 to 2L. Cont incentive spirometer. Leg edema, left 03/29/2017 03/31/2017 Assessment & Plan (03/30/2017 10:18 PM EST): Pt noted to have LLE edema. He states he noticed it a couple of days ago. He denies any travel but does state he has been sedentary. [place] of LLE was negative for DVT Family History Medical History Relation Comments Asthma Child Relation Status Comments Child Social History Tobacco Use Types Packs/Day Years Used Date Smoking Tobacco: Some Days Cigarettes 0.3 30 Smokeless Tobacco: Never Tobacco Cessation:Ready to Q uit: No; Counseling Given: Yes Alcohol Use Standard Drinks/Week Comments No 0 (1 standard drink = 0.6 oz pur e alcohol) rare Education Answer Date Recorded Are you interested in more education? Not on kate e 06/23/2022 Are you concerned about learning? Not on file 06/23/2022 No 06/23/2022 No 06/23/2022 Digital Access Answer Date Recorded No 07/22/2022 No 07/22/2022 Reliable internet access at home? Not on file 07/22/2022 Device with a working camera? Not on file Comments Unknown Sex and Gender Information Value Date Recorded Sex Assigned at Female 03/29/2017 10:15 AM EST Legal Sex Male 10:32 PM EDT Gender Identity Female 03/29/2017 10:15 AM EST Sexual Orientation Straight 03/29/2017 10 :15 AM EST Last Filed Vital Signs Vital Sign Reading Time Taken Comments Blood Pressure 138/83 04/03/2017 12:28 PM EST Pulse 84 04/03/2017 12:28 PM EST Temperature 36.5 C (97.7 F) 04/03/2017 12:28 PM EST Respiratory Rate 18 04/03/2017 12:28 PM EST Oxygen Saturation 95% 04/03/2017 12:28 PM EST Inhaled Oxygen Concentration - - Weight 125.6 kg (277 lb) 05/13/2018 3:00 PM EDT Height 177.8 cm (5' 10 ) 05/13/2018 3:00 PM EDT Body Mass Index 39.75 05/13/2018 3:00 PM EDT Plan of Treatment Health Maintenance Due Date Last Done Comments BLOOD PRESSURE 1966 LIPID PANEL 1966 DEPRESSION SCREENING 1978 SMOKING Hx and SMOKELESS TOBACCO SCREENING 1979 HEPATITIS C SCREENING 1984 HIV ONE-TIME SCREENING (18-65 YEARS) 1984 COLOGUARD 2011 COLONOSCOPY 2011 COLORECTAL CANCER SCREENING 2011 FIT TEST 2011 FOBT 2011 SIGMOIDOSCOPY 2011 VIRTUAL COLONOSCOPY 2011 ZOSTER VACCINES (1 of 2) 2016 CREATININE LEVEL 04/02/2018 04/02/2017, 05/2017, 03/31/2017, Additional history exists PNEUMOCOCCAL VACCINES (50+ years) (2 of 2 - PCV) 12/25/2018 12/25/2017 COVID-19 VACCINE (3 - season) 2023 09/27/2020, 08/26/2020 Adult Td,Tdap Booster 12/04/2026 12/04/2016 HEPATITIS A VACCINES Aged Out No long er eligible based on patient's age to complete this topic HIB VACCINES Aged Out No longer eligi ble based on patient's age to complete this topic MENINGOCOCCAL VACCINES (ACWY) Aged Out No longer eligible based on patient's age to complete this topic MENINGOCOCCAL VACCINES (B) Aged Out N o longer eligible based on patient's age to complete this topic Medical Devices Not on file Procedures Procedure Name Priority Date/Time Associated Diagnosis Comments BASIC METABOLIC PANEL Routine 04/02/2017 5:37 AM EST from Last 3 Months or Most Recently Relevant to Health Maintenance Results * (ABNORMAL) Basic metabolic panel (04/02/2017 5:37 AM EST) SODIUM 141 133 - 146 mmol/L [facility] CHLORIDE 99 96 - 108 mmol/L [facility] POTASSIUM 4.7 3.3 - 5.1 mmol/L [facility] CO2 29 21 - 35 mmol/L [facility] BUN 18 6 - 19 mg/dL [facility] CREATININE 1.00 0.5 - 1.5 mg/dL [facility] GLUCOSE 117(H) 70 - 99 mg/dL [facility] CALCIUM 9.2 8.4 - 10.3 mg/dL [facility] EGFR >60 60 - 1000 mL/min/1.7 3m2 [facility] Comment:Abnormal if <60. If patient is -Tristanian, multiply the result by 1.21. ANION GAP 18 10 - 20 mmol/L [facility] Blood 04/02/2017 5:37 AM EST 04/02/2017 7:19 AM EST Brett Stapleton MD LAB BLOOD ORDERABLES Final Resu lt [facility] [address] [place] [address] from Last 3 Months or Most Recently Relevant to Health Maintenance Insurance MEDICARE PART A & B [facility] MEDICARE PART A & [place] [address] [place] [address] MEDICARE PART A & B [facility] MEDICARE PART A & [facility] [place] & B [employer] MEDICARE PART A & [place] & B [facility] & B [employer] Advance Directives For more information, please contact: [phone] (9AM - 5PM [facility], Sunday-Sunday) * Full Code (Confirmed) (Latest Code Status on File) Date Activated Date Inactivated Comments 03/29/2017 7:14 PM 04/03/2017 3:15 PM Question Answer Comments Code Discussion Comments: w/ pt Care Teams Water Quality Tester Relationship Specialty Start Date End Date Musa Renee MD [email or web address] PCP - General Family Medicine 04/01/17 Additional Source Comments The information contained in this document represents components of the legal health record. It is not the complete legal health record.[facility]
--- OUTSIDE RECORDS SUMMARY | 2024-10-07 12:34 | XMS_ITS | Clinical Summary ---
Author Organization [facility] Address [address] [place] [address] Phone Care Team Providers Care Slubber Operator Name Role Phone Flakito Wing MD Primary Care Provider [phone] Allergies Active Allergy Reactions Criticality Noted Date [...] 2 - PCV) 019 12/25/2017 Influenza Vaccine (#1) 2024 Pneumococcal Vaccine: Peds ( 0 to 5 Years) and At-Risk Patients (6 to 49 Years) Discontinued 12/25/2017 Insurance Medicare Medicaid [place] Care Teams Slubber Operator Relationship Specialty Start Date End Date Flakito Wing MD [address] [place] [address] PCP - General Internal Medicine 06/09/21
== END 2024-10-07 13:08 | disposition home or self-care (01) ==
LOC: HO.HMCH 11:27
PROVIDERS: PCP Internal Medicine; Visit Provider Internal Medicine
DX: J44.1 Chronic obstructive pulmonary disease with (acute) exacerbation (principal); K21.9 Gastro-esophageal reflux disease without esophagitis; M1A.9XX1 Chronic gout, unspecified, with tophus (tophi); M54.50 Low back pain, unspecified; E78.00 Pure hypercholesterolemia, unspecified; I10 Essential (primary) hypertension; E11.9 Type 2 diabetes mellitus without complications; N18.31 Chronic kidney disease, stage 3a; F41.9 Anxiety disorder, unspecified; F17.200 Nicotine dependence, unspecified, uncomplicated; E66.9 Obesity, unspecified

== ENCOUNTER → 2024-10-07 11:26 | Outpatient (BNVA) | payer MEDICARE, MEDICAID, SELFPAY | PROVIDERS: PCP Internal Medicine; Visit Provider Internal Medicine | DX: J44.1 Chronic obstructive pulmonary disease with (acute) exacerbation (principal); K21.9 Gastro-esophageal reflux disease without esophagitis; M1A.9XX1 Chronic gout, unspecified, with tophus (tophi); M54.50 Low back pain, unspecified; E78.00 Pure hypercholesterolemia, unspecified; I12.9 Hypertensive chronic kidney disease with stage 1 through stage 4 chronic kidney disease, or unspecified chronic kidney disease; E11.22 Type 2 diabetes mellitus with diabetic chronic kidney disease; N18.31 Chronic kidney disease, stage 3a; F41.9 Anxiety disorder, unspecified; E66.9 Obesity, unspecified; Z68.34 Body mass index [BMI] 34.0-34.9, adult; F17.200 Nicotine dependence, unspecified, uncomplicated; Z71.6 Tobacco abuse counseling; Z71.3 Dietary counseling and surveillance | CPT/HCPCS: 96127; 99212 ==

== ENCOUNTER 2025-01-02 10:58 | Outpatient (AMB) | payer MEDICARE, MEDICAID, SELFPAY ==
--- NOTE | 2025-01-02 10:59 | MHC.PC.OV ---
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 Accompanied by: Self / Same As Patient Allergies codeine Allergy (Mild, Verified 01/02/25 11:14) Itching gabapentin Allergy (Mild, Verified 01/02/25 11:14) Rash mushroom Allergy (Mild, Verified 01/02/25 11:14) Vomiting nortriptyline Allergy (Mild, Verified 01/02/25 11:14) Nightmare mushrooms Allergy (Mild, Uncoded 01/02/25 11:14) Vomiting Medication List - Last Reconciled 01/02/25 by Flakito Wing MD albuterol sulfate 90 mcg/actuation (Ventolin HFA) 2 puffs PO Q6H PRN amitriptyline 100 mg PO DAILY atorvastatin 20 mg PO DAILY colchicine 0.3 mg PO DAILY PRN cyclobenzaprine 5 mg PO TID PRN diphenhydramine HCl mg PO folic acid 1 mg PO DAILY hydrocortisone 2.5% topical hydroxyzine HCl 25 mg PO TID PRN ketoconazole 2% 1 appl topical Krystexxa (pegloticase) 8 mg IV Q2W NS methotrexate sodium 15 mg (6 x 2.5 mg) PO QWEEK metoprolol succinate ER 25 mg PO DAILY nystatin 1 appl topical TID 10 days pantoprazole 40 mg PO DAILY 30 days sodium chloride 0.9 % (flush) (BD PosiFlush Normal Saline 0.9 % injection syringe) mL IV Tobacco use date assessed: 01/02/25 Dental Screening Dental Screen Date: 01/02/25 Did you have a dental visit in the last 12 months?: No Did you have a dental problem in the last 6 months where you did not have access to dental care?: No Was dental information given to patient?: No HPI annual exam - see comments HPI Details Patient comes in today for his annual physical examination He has gained almost 20 pounds since he was last seen a few months ago in September 2024, which he is attributing to the cold weather States that he currently feels okay and he has not had any acute flare ups of his gout in a few months now Thinks that he will be needing his MTx Rx refilled soon but he has a follow up appointment with rheumatology next week and will have Dr. Romo address this then He denies any headaches or dizziness Denies any chest pains, no increased SOB No nausea/vomiting, no abdominal pain No change in bowel habits noted He denies any acute urinary symptoms He had some follow up labs done at [facility] a couple of days ago - to discuss his results Patient states that he has NEVER had a screening colonoscopy done in the past and does not wish to go for the procedure unless he absolutely has to Recalls having a negative Cologuard test done a few years ago but he could not recall exactly when - advised that he started coming here in December 2020 so that would have been before that when he was still with his previous PCP at [facility] Medical History (Updated 01/02/25 @ 11:45 by Flakito Wing MD) Colonoscopy refused GERD without esophagitis Anxiety Chronic kidney disease (CKD), stage III (moderate) Diabetes mellitus Obesity (BMI 30-39.9) Smoker COPD (chronic obstructive pulmonary disease) Pure hypercholesterolemia Benign essential hypertension Chronic tophaceous gout Surgical History History of lung surgery History of left knee replacement Family History Mother Diabetes Arthritis Father Gout Social History Housing: House Alcohol intake: current Alcohol intake frequency: holidays/special occasions only Alcohol type: beer Patient Tobacco Use Status: Current everyday Tobacco user Tobacco use type: Cigarette Cigarette Packs Per Day: 0.5 Cigarettes Per Day: 10 e-Cigarette/Vaping Use: Never Used Second Hand Smoke Exposure: Yes service: No Current occupational status: disabled 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 1. Little interest or pleasure in doing things: more than half the days 2. Feeling down, depressed, or hopeless: not at all 3. Trouble falling or staying asleep, or sleeping too much: several days 4. Feeling tired or having little energy: several days 5. Poor appetite or overeating: not at all 6. Feeling bad about yourself - or that you are a failure or have let yourself or your family down: not at all 7. Trouble concentrating on things, such as reading the newspaper or watching television: not at all 8. Moving or speaking so slowly that other people could have noticed. Or the opposite - being so fidgety or restless that you have been moving around a lot more than usual: not at all 9. Thoughts that you would be better off or of hurting yourself in some way: not at all Total score: 4 Depression Screening Interpretation: Positive Depression Screening Follow-up: Existing condition and Follow-up Visit Requested Depression Screening Done: Yes 56740 - PHQ-9 Billing: Yes Source: Developed by Drs. Manuel Fox, Marlen Resendiz, Maco Wood and colleagues, with an educational poli from [email or web address]. Thrive Questionnaire Date Thrive assessed: 01/02/25 I am a: Patient What is your living situation today?: I have a steady place to live Within the past 12 months, did the food you bought not last and you didn't have the money to get more?: Never true Within the past 12 months, did you worry whether your food would run out before you got money to buy more?: Never true Do you have trouble paying for medicines?: No Do you have trouble getting transportation to medical appointments?: Yes Do you have trouble paying your heating and electricity bill?: No Do you have trouble taking care of your child, family member or friend?: No Do you have trouble with day-to-day activities such as bathing, preparing meals, shopping, managing finances, etc.?: No Are you currently unemployed and looking for a job?: No Are you interested in more education?: Yes Please select the resources that you would like help with: None Currently or been in a relationship where the following occur: No concerns reported THRIVE Score: 1 AUDIT C Alcohol Use Questionnaire (AUDIT-C) 1. How often do you have a drink containing alcohol?: Monthly or less 2. How many drinks containing alcohol do you have on a typical day when you are drinking?: 1 or 2 3. How often do you have six or more drinks on one occasion?: Never Total Score: 1 Score Reviewed/Action Taken: Yes SURAJ-7 AMB Questionnaire SURAJ-7 Date SURAJ - 7 assessed: 01/02/25 Feeling nervous, anxious, or on edge: 1 = Several days Not being able to stop or control worryin = Not at all Worrying too much about different things: 0 = Not at all Trouble relaxin = Not at all Being so restless that it is hard to sit still: 1 = Several days Becoming easily annoyed or irritable: 0 = Not at all Feeling afraid as if something awful might happen: 0 = Not at all Total SURAJ-7 score (0-4 normal; 5-9 mild; 10-14 moderate; 15-21 severe): 2 Source: Developed by Drs. Manuel Fox, Marlen Resendiz, Maco Wood and colleagues, with an educational poli from [email or web address]. Review of Systems Const Denies chills, Denies fatigue, Denies fever(s), Denies headache(s), Denies malaise and Denies weakness Eyes Denies blurry vision, Denies change in vision, Denies irritation and Denies itchy eyes ENT Denies dysphagia, Denies dizziness, Denies otalgia, Denies headache(s), Denies nasal congestion, Denies neck pain, Denies odynophagia and Denies sore throat Card Denies rapid heart rate, Denies irregular heart rhythm, Denies palpitations and Denies dyspnea Resp Denies chest congestion, Denies cough, Denies dyspnea and Denies wheezing GI Denies abdominal pain, Denies bloating, Denies constipation, Denies dysphagia, Denies heartburn, Denies diarrhea, Denies nausea, Denies odynophagia and Denies vomiting Denies hematuria, Denies difficulty urinating, Denies dysuria, Denies urinary frequency and Denies urinary urgency Musc Denies back pain, Reports arthralgias (involving joints mostly in the hands/fingers and toes, on and off), Denies joint swelling, Denies muscle weakness and Denies neck pain Skin/Breast Denies change in pigmentation, Denies lesions, Denies rash and Denies unusual bruising Neuro Denies dizziness, Denies headache(s), Denies paresthesias and Denies weakness Endo Denies fatigue and Denies palpitations Aller/Immun Denies itchy eyes and Denies wheezing Physical exam (Primary Care) Vital Signs: Last Vital Signs Pulse 90 01/02/25 11:00 BP 146/82 H 01/02/25 11:00 Pulse Ox 93 01/02/25 11:00 Oxygen Delivery Method Room Air 01/02/25 11:00 BMI result Body Mass Index 37.4 Tobacco/Smoking Status: Tobacco use Status Tobacco use date assessed 01/02/25 01/02/25 11:06 Patient Tobacco Use Status Current everyday Tobacco 01/02/25 11:06 Tobacco use type Cigarette 01/02/25 11:06 e-Cigarette/Vaping Use Never Used 01/02/25 11:06 PHQ-9: PHQ-9 Score PHQ-9: Total score 4 01/02/25 11:06 Depression Screening Interpretation: Positive Depression Screening Follow-up: Existing condition and Follow-up Visit Requested Thrive Assessment: Date of Thrive Assessment Date Thrive assessed 01/02/25 01/02/25 11:06 Currently or been in a relationship where the following occur: No concerns reported Const General: no acute distress, alert and awake Orientation/consciousness: patient oriented x3 HENMT Head: Yes normocephalic and Yes atraumatic Ears: external ears normal, TM's normal bilaterally and EAC's normal General nose exam: No nasal discharge present Face and sinus: Yes normal facial exam and Yes sinuses nontender Teeth and gingiva: dentition normal Throat: Yes posterior oropharynx normal and Yes tonsils normal (no TP congestion) Eyes Eyelids: Yes eyelids normal Conjunctivae: conjunctivae normal Pupils: Equal, round and reactive pupils present EOM: EOMs intact bilaterally Neck Neck: Yes no lymphadenopathy and Yes supple Thyroid: Thyroid normal Resp Auscultation: clear to auscultation bilaterally, no rales and no wheezes Cardio Rate: regular rate Rhythm: regular rhythm Heart sounds: no murmurs GI Palpation (GI): Soft to palpation, nontender and No hepatosplenomegaly present Auscultation: normal bowel sounds General: Yes no CVA tenderness Back/Spine/Pelvis Back: no CVA tenderness Thoracic/Lumbar Spine: thoracic and lumbar spine normal to inspection Skin Lesions: no lesions Rashes: no rashes Neuro General: patient oriented x3, moves all extremities, no focal motor deficits and CN's II-XI intact bilaterally Cranial nerves: Yes Equal, round and reactive pupils present Cognition (Neuro): normal cognition Gait exam (Neuro): Normal gait present Extrem Other: (+) multiple joint deformities and tenderness, involving multiple fingers on both hands (with swelling/enlargement of IPs), ankles and knees; (+) large fluctuant cysts on the elbows bilaterally General: Yes no clubbing, cyanosis or edema Coding Level of Care Code Est Pt Prev Care 40-64y(06076) Diagnoses Annual physical exam Z00.00 Chronic tophaceous gout M1A.9XX1 Chronic obstructive pulmonary disease, unspecified COPD type J44.9 COPD type: unspecified COPD GERD without esophagitis K21.9 Bilateral low back pain without sciatica, unspecified chronicity M54.50 Chronicity: unspecified Back pain laterality: bilateral Sciatica presence: without sciatica Pure hypercholesterolemia E78.00 Benign essential hypertension I10 Type 2 diabetes mellitus without complication, without long-term current use of insulin E11.9 Diabetes mellitus type: type 2 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 use Diabetes mellitus complication status: without complication Stage 3a chronic kidney disease N18.31 Chronic kidney disease stage 3 subtype: stage 3a (GFR 45-59) Anxiety F41.9 Smoker F17.200 Obesity (BMI 30-39.9) E66.9 Colonoscopy refused Z53.20 Additional Codes PHQ-9 - 51736 - PHQ-9 Billing: Yes ([id number]) Assessment & Plan Assessment & Plan (1) Annual physical exam: Code(s): Z00.00 - Encounter for general adult medical examination without abnormal findings Category: Medical Plan: Results of his labs done at [facility] a couple of days ago reviewed and discussed with patient although advised that these are non-fasting and did not include his cholesterol levels and a couple of other routine labs Will send patient for fasting labs [facility] to complete his annual exam today - these will include a fasting lipid profile, TFTs, PSA, U/A and a vitamin D level Patient has NEVER had a screening colonoscopy done in the past and does not wish to go for the procedure unless he absolutely has to Recalls that he had a negative Cologuard test done a few years ago but he could not recall exactly when - advised that he started coming here in December 2020 so this would have been before that when he was still with his previous PCP at [facility] We will have him get repeat Cologuard testing done as well (2) Chronic tophaceous gout: Comment: dx at age 14 Numerous medications including allopurinol, Uloric, probenecid, colchicine Krystexxa started fall of 2021- until 01/2023 with reduction of tophi size. uric acid level increased from undetectable to 12.3 1 month after Krystexxa was stopped Krystexxa restarted 03/2023 effective Code(s): M1A.9XX1 - Chronic gout, unspecified, with tophus (tophi) Category: Medical Plan: Reinforced low purine diet His uric acid level again came back very low (<0.2) on his labs done a couple of days ago Continue Methotrexate 15 mg once a week and Krystexxa 8 mg IV every 2 weeks - he has been doing very well on his current meds for over a year now and that he's had no significant gout flare ups since he was started on his current meds [place] [facility] as scheduled (3) COPD (chronic obstructive pulmonary disease): Code(s): J44.9 - Chronic obstructive pulmonary disease, unspecified Category: Medical Qualifiers: COPD type: unspecified COPD Qualified Code(s): J44.9 - Chronic obstructive pulmonary disease, unspecified Plan: Controlled Continue Albuterol HFA 2 inhalations Q 6 hours PRN (4) GERD without esophagitis: Code(s): K21.9 - Gastro-esophageal reflux disease without esophagitis Category: Medical Plan: Dietary restrictions reinforced Continue Pantoprazole 40 mg QD (5) Low back pain: Code(s): M54.50 - Low back pain, unspecified Category: Medical Qualifiers: Chronicity: unspecified Back pain laterality: bilateral Sciatica presence: without sciatica Qualified Code(s): M54.50 - Low back pain, unspecified Plan: Improved Continue Cyclobenzaprine 5 mg TID PRN We also referred him to physical therapy for further evaluation and management, which he states helped a lot (6) Pure hypercholesterolemia: Code(s): E78.00 - Pure hypercholesterolemia, unspecified Category: Medical Plan: Reinforced low cholesterol diet He is advised that his recent labs done a couple of days ago did not include a fasting lipid profile so he should go and get his fasting labs done ZENON - ordered Continue Atorvastatin 20 mg QD Will recheck his labs and fasting lipids in 4 months for follow up (7) Benign essential hypertension: Code(s): I10 - Essential (primary) hypertension Category: Medical Plan: Reinforced low sodium diet - goal is systolic BP of 120 to 130 mm or less His blood pressure is up higher again today, likely due to his significant weight gain since his last visit Continue Metoprolol ER 25 mg QD for now Patient is instructed to try monitoring his blood pressure regularly (8) Diabetes mellitus: Code(s): E11.9 - Type 2 diabetes mellitus without complications Category: Medical Qualifiers: Diabetes mellitus type: type 2 Diabetes mellitus senior care insulin use: without senior care use Diabetes mellitus complication status: without complication Qualified Code(s): E11.9 - Type 2 diabetes mellitus without complications Plan: His HgbA1c was most recently at 5.5% when last checked in November 2023 (his HgbA1c was at 5.7% when previously checked in February 2023) - goal is at ideally <6.5% Reinforced diabetic diet Will recheck his HgbA1c again ZENON for follow up Patient is currently still on NO Rx for diabetes and is just trying to maintain/control his diabetes with diet modification alone (9) Chronic kidney disease (CKD), stage III (moderate): Code(s): N18.30 - Chronic kidney disease, stage 3 unspecified Category: Medical Qualifiers: Chronic kidney disease stage 3 subtype: stage 3a (GFR 45-59) Qualified Code(s): N18.31 - Chronic kidney disease, stage 3a Plan: His CKD is most likely multifactorial, including due to his HTN and DM as well as his significantly elevated uric acid burden and intractable gout for years Reinforced adequate hydration Follow up with nephrology (Dr. Hunt) as scheduled (10) Anxiety: Code(s): F41.9 - Anxiety disorder, unspecified Category: Medical Plan: Continue Hydroxyzine 25 mg TID PRN (11) Smoker: Code(s): F17.200 - Nicotine dependence, unspecified, uncomplicated Category: Social Hx Plan: Patient is counseled again on complete smoking cessation (12) Obesity (BMI 30-39.9): Code(s): E66.9 - Obesity, unspecified Category: Medical Plan: Reinforced diet and weight loss; exercise does not appear to be a realistic option due to patient's joint deformities and chronic joint pains He has been advised that he has gained almost 20 pounds since his last visit and patient states that he will work on getting his weight back down again over the next few months (13) Colonoscopy refused: Comment: Patient reportedly had a negative Cologuard test done a few years ago with [facility]; repeat Cologuard ordered on 01/02/2025 Code(s): Z53.20 - Procedure and treatment not carried out because of patient's decision for unspecified reasons Category: Medical Plan: Repeat Cologuard test ordered Patient continues to decline referral for a screening colonoscopy - states that he has never had one done in the past and does not wish to go for one unless he has no other choice Plan Follow up in 4 months Orders: Orders UA CC w/rflx Micro + Cult Today R30.0 - Dysuria, Z00.00 - Encounter for general adult medical examination without abnormal findings Vitamin D 25-OH Total Today E55.9 - Vitamin D deficiency, unspecified, Z00.00 - Encounter for general adult medical examination without abnormal findings Prostate Specific Antigen Scr Today Z00.00 - Encounter for general adult medical examination without abnormal findings Hemoglobin A1c Today E11.9 - Type 2 diabetes mellitus without complications, Z00.00 - Encounter for general adult medical examination without abnormal findings Hemoglobin A1c 4 Months E11.9 - Type 2 diabetes mellitus without complications Lipid Panel 4 Months E78.00 - Pure hypercholesterolemia, unspecified Uric Acid 4 Months M10.9 - Gout, unspecified Vitamin D 25-OH Total 4 Months E55.9 - Vitamin D deficiency, unspecified Lipid Panel Today E78.00 - Pure hypercholesterolemia, unspecified, Z00.00 - Encounter for general adult medical examination without abnormal findings TSH reflex Free T4 Today E78.00 - Pure hypercholesterolemia, unspecified, Z00.00 - Encounter for general adult medical examination without abnormal findings Complete Blood Count Auto Diff 4 Months D64.9 - Anemia, unspecified Comprehensive [place] Belt. Panel Fast 4 Months E78.00 - Pure hypercholesterolemia, unspecified TSH reflex Free T4 4 Months E78.00 - Pure hypercholesterolemia, unspecified UA CC w/rflx Micro + Cult 4 Months R30.0 - Dysuria Referrals Cologuard Test Z12.11 - Encounter for screening for malignant neoplasm of colon
[2025-01-02 11:00] VITALS: BP 146/82; PULSE 90; O2SAT 93; BMI 37.4
--- OUTSIDE RECORDS SUMMARY | 2025-01-02 13:12 | XMS_ITS | Encounter Summary ---
Author Organization [facility] Address [address] [place] [phone] Phone Care Team Providers Care Product Safety Expert Name Role Phone Javi Sepulveda, PhD Unavailable [phone] Musa Renee MD Primary Care Provider [phone] Encounter Details Date Type Department Care Team (Late st Contact Info) Description 07/15/2018 Procedure Pass [facility] Endoscopy Admitting Dept Virtual Department [address] [place] [id number] Social History Tobacco Use Types Packs/Day Years Used Date Smoking Tobacco: Some Days Cigarettes 0.3 30 Smokeless Tobacco: Never Alcohol Use Standard Drinks/Week Comments No 0 (1 standard drink = 0.6 oz pur e alcohol) rare Comments Unknown Sex and Gender Information Value Date Recorded Sex Assigned at Female 03/29/2017 10:15 AM EST Legal Sex Male 10:32 PM EDT Gender Identity Female 03/29/2017 10:15 AM EST Sexual Orientation Straight 03/29/2017 10 :15 AM EST documented as of this encounter Plan of Treatment Not on file documented as of this encounter Visit Diagnoses Not on filedocumented in this encounter Care Teams Product Safety Expert Relationship Specialty Start Date End Date Musa Renee MD [address] [place] [phone] [email or web address] PCP - General Family Medicine 04/01/17 Javi Sepulveda MBBS, PhD [address] [place] [id number] [email or web address] Historical LMR Provider 12/16/1603/05/21 documented as of this encounter Additional Source Comments The information contained in this document represents components of the legal health record. It is not the complete legal health record.[facility]
--- OUTSIDE RECORDS SUMMARY | 2025-01-02 13:12 | XMS_ITS | Clinical Summary ---
Author Organization Formerly [facility] Address [address] [place] [address] Phone Care Team Providers Care Rock Contractor Name Role Phone Musa Renee MD Primary Care Provider [phone] Allergies Active Allergy Reactions Criticality Noted Date [...] FOBT 2011 SIGMOIDOSCOPY 2011 VIRTUAL COLONOSCOPY 2011 RSV VACCINE (1 - Risk 50-74 years 1-dose series) 2016 ZOSTER VACCINES (1 of 2) 2016 CREATININE LEVEL 04/02/2018 04/02/2017, 05/2017, 03/31/2017, Additional history exists PNEUMOCOCCAL VACCINES (50+ years) (2 of 2 - PCV) 12/25/2018 12/25/2017 INFLUENZA VACCINE (#1) 2024 COVID-19 VACCINE (3 - season) 2024 09/27/2020, 08/26/2020 Adult Td,Tdap Booster 12/04/2026 12/04/2016 [...] Date/Time Associated Diagnosis Comments BASIC METABOLIC PANEL (BMP) Routine 04/02/2017 5:37 AM EST from Last 3 Months or Most Recently Relevant to Health Maintenance Results * (ABNORMAL) Basic metabolic panel (04/02/2017 5:37 AM EST) SODIUM 141 133 - 146 mmol/L [facility] CHLORIDE 99 96 - 108 mmol/L [facility] POTASSIUM 4.7 3.3 - 5.1 mmol/L [facility] CO2 29 21 - 35 mmol/L [facility] BUN 18 6 - 19 mg/dL [facility] CREATININE 1.00 0.5 - 1.5 mg/dL [facility] GLUCOSE 117(H) 70 - 99 mg/dL [facility] CALCIUM 9.2 8.4 - 10.3 mg/dL [facility] EGFR >60 60 - 1000 mL/min/1.7 3m2 [facility] Comment:Abnormal if <60. If patient is -Bulgarian, multiply the result by 1.21. ANION GAP 18 10 - 20 mmol/L [facility] Blood 04/02/2017 5:37 AM EST 04/02/2017 7:19 AM EST Brett Stapleton MD LAB BLOOD BKR ORDERABLES Final Result [address] [address] from Last 3 Months or Most Recently Relevant to Health Maintenance Insurance MEDICARE PART A & B [facility] MEDICARE PART A & B [employer] MEDICARE PART A & B [facility]IC[facility] PART A & B [facility] MEDIC[facility] PART A & B [place] MED[place] PART A & B [facility] MEDICARE PART A & B Member Subscriber Plan / Payer (Ef fective 2012-) Name:Cornelius Lino Member ID:[id number] Relation to Subscriber:Self Name:Cornelius Lino Subscriber ID:[id number] Payer ID:[id number] Group ID:Not on file Type:Medicare Address: [employer] [address] [place] [phone] [facility] A & B Member Subscriber Plan / Payer (Ef fective 2012-Present) Name:[facility] Member ID:[id number] Relation to Subscriber:Self Name:HollandCornelius Subscriber ID:[id number] Payer ID:[id number] Group ID:Not on file Type:Medicare Address: [facility] [employer] [facility] [address] [place] [phone] [facility] MEDIC[facility] PART A & B [facility] Advance Directives For more information, please contact: [phone] (9AM - 5PM Fely/[facility], Sunday-Sunday) * Full Code (Confirmed) (Latest Code Status on File) Date Activated Date Inactivated Comments 03/29/2017 7:14 PM 04/03/2017 3:15 PM Question Answer Comments Code Discussion Comments: w/ pt Care Teams Rock Contractor Relationship Specialty Start Date End Date Musa Renee MD [address] [place] [id number] [email or web address] PCP - General Family Medicine 04/01/17 Additional Source Comments The information contained in this document represents components of the legal health record. It is not the complete legal health record.[facility]
--- OUTSIDE RECORDS SUMMARY | 2025-01-02 13:12 | XMS_ITS | Encounter Summary ---
Author Organization [facility] Address [address] [place] [address] Phone Care Team Providers Care Highway Traffic Control Technician Name Role Phone Javi Sepulveda, PhD Unavailable [phone] Musa Renee MD Primary Care Provider [phone] Encounter Details Date Type Department Care Team (Late st Contact Info) Description 08/02/2017 Procedure Pass [facility] Endoscopy Admitting Dept Virtual Department [address] [place] [address] Social History Tobacco Use Types Packs/Day Years Used Date Smoking Tobacco: Every Day Cigarettes 0.3 30 Smokeless Tobacco: Never Alcohol [...] on filedocumented in this encounter Care Teams Highway Traffic Control Technician Relationship Specialty Start Date End Date Musa Renee MD [address] [place] [address] [email or web address] PCP - General Family Medicine 04/01/17 Javi Sepulveda MBBS, PhD [address] [place] [address] [email or web address] Historical LMR Provider 12/16/1603/05/21 documented as of this encounter Additional Source Comments The information contained in this document represents components of the legal health record. It is not the complete legal health record.[facility]
--- OUTSIDE RECORDS SUMMARY | 2025-01-02 13:12 | XMS_ITS | Encounter Summary ---
Author Organization [facility] Address [address] [place] [address] Phone Care Team Providers Care Veterinary Meat Inspector Name Role Phone Javi Sepulveda, PhD Unavailable [phone] Pcp, Not Required Primary Care Provider Unavaila Musa Hernandez MD Primary Care Provider [phone] Encounter Details Date Type Department Care Team (Late st Contact Info) Description 03/29/2017 Procedure Pass [facility], Ct Scan - [address] [address] Social History Tobacco Use Types Packs/Day Years Used Date Smoking Tobacco: Some Days Cigarettes Smokeless Tobacco: Never Alcohol Use Standard Drinks/Week Comments No 0 (1 standard drink = 0.6 oz pur e alcohol) Comments Unknown Sex and Gender Information Value [...] on filedocumented in this encounter Care Teams Veterinary Meat Inspector Relationship Specialty Start Date End Date Pcp, Not Required [address] [place] [address] PCP - General 03/29/17 03/31/17 Musa Renee MD [address] [place] [address] [email or web address] PCP - General Family Medicine 04/01/17 Javi Sepulveda MBBS, PhD [address] [place] [address] [email or web address] Historical LMR Provider 12/16/1603/05/21 documented as of this encounter Additional Source Comments The information contained in this document represents components of the legal health record. It is not the complete legal health record.[facility]
--- OUTSIDE RECORDS SUMMARY | 2025-01-02 13:12 | XMS_ITS | Clinical Summary ---
Author Organization [facility] Address [address] [place] [address] Phone Care Team Providers Care Ob/Gyn Name Role Phone Flakito Wing MD Primary Care Provider [phone] Allergies Active Allergy Reactions Criticality Noted Date [...] Medicaid [place] Care Teams Ob/Gyn Relationship Specialty Start Date End Date Flakito Wing MD [address] [place] [address] PCP - General Internal Medicine 06/09/21
== END 2025-01-02 11:36 | disposition home or self-care (01) ==
LOC: HO.HMCH 10:59
PROVIDERS: PCP Internal Medicine; Visit Provider Internal Medicine
DX: Z00.00 Encounter for general adult medical examination without abnormal findings (principal); I12.9 Hypertensive chronic kidney disease with stage 1 through stage 4 chronic kidney disease, or unspecified chronic kidney disease; J44.9 Chronic obstructive pulmonary disease, unspecified; E11.9 Type 2 diabetes mellitus without complications; N18.31 Chronic kidney disease, stage 3a; M1A.9XX1 Chronic gout, unspecified, with tophus (tophi); K21.9 Gastro-esophageal reflux disease without esophagitis; M54.50 Low back pain, unspecified; E78.00 Pure hypercholesterolemia, unspecified; F41.9 Anxiety disorder, unspecified; F17.200 Nicotine dependence, unspecified, uncomplicated; E66.9 Obesity, unspecified

== ENCOUNTER → 2025-01-02 10:58 | Outpatient (BNVA) | payer MEDICARE, MEDICAID, SELFPAY | PROVIDERS: PCP Internal Medicine; Visit Provider Internal Medicine | DX: Z00.00 Encounter for general adult medical examination without abnormal findings (principal); M1A.9XX1 Chronic gout, unspecified, with tophus (tophi); J44.9 Chronic obstructive pulmonary disease, unspecified; K21.9 Gastro-esophageal reflux disease without esophagitis; M54.50 Low back pain, unspecified; E78.00 Pure hypercholesterolemia, unspecified; I10 Essential (primary) hypertension; E11.9 Type 2 diabetes mellitus without complications; N18.31 Chronic kidney disease, stage 3a; Z13.31 Encounter for screening for depression; Z13.39 Encounter for screening examination for other mental health and behavioral disorders | CPT/HCPCS: 96127; 99396 ==

== ENCOUNTER 2025-01-06 13:01 | Outpatient (AMB) | payer MEDICARE, MEDICAID, SELFPAY ==
--- NOTE | 2025-01-06 13:10 | A.OFFVIS_ITS ---
Vital Signs 01/06/25 13:16 Height 5 ft 10 in Weight 259 lb 4.218 oz BMI 37.2 BP 154/100 H Blood Pressure Location Lt brachial Position Sitting Pulse 90 Pulse Source Pulse Oximeter Pulse Oximetry (%) 98 Oxygen Delivery Method Room Air Intake Visit Reasons: Gout Intake Note: Patient presents for Gout follow. Allergies codeine Allergy (Mild, Verified 01/06/25 13:15) Itching gabapentin Allergy (Mild, Verified 01/06/25 13:15) Rash mushroom Allergy (Mild, Verified 01/06/25 13:15) Vomiting nortriptyline Allergy (Mild, Verified 01/06/25 13:15) Nightmare mushrooms Allergy (Mild, Uncoded 01/02/25 11:14) Vomiting HPI Comments Details: Patient is a 59-year-old male current everyday smoker with anxiety, hyperlipidemia, DM c/b CKD, HTN, COPD, and chronic tophaceous gout here today for follow up Interval History: Patient last seen 07/09/24 with me - On Krystexxa 8mg IV every 2 weeks, methotrexate 15mg weekly, folic acid 1mg daily, colchcicine 0.3mg daily prn - He reports no gout flares since last visit. - Continues to do well on his Krystexxa infusions - No changes made to medications Today - On Krystexxa 8mg IV every 2 weeks, methotrexate 15mg weekly, folic acid 1mg daily, colchcicine 0.3mg daily prn - Rheumatologic History: dx at age 14 Numerous medications including allopurinol, Uloric, probenecid, colchicine Krystexxa started fall- until 01/2023 with reduction of tophi size. uric acid level increased from undetectable to 12.3 1 month after Krystexxa was stopped Krystexxa restarted 03/2023 effective Initial history: This is a 57-year-old male with chronic tophaceous gout who presents for gout evaluation. Patient states that he has had gout since age 14. Has been on numerous medicines including allopurinol, Uloric, colchicine, probenecid. Most recently he was evaluated by sea shell gatherer and started on Krystexxa in the fall of 2021 and his last Krystexxa infusion was early January of 2023. States that he has done quite well on Krystexxa with very few gout flare-ups. States that the tophi on his fingers and toes have reduced in size on Krystexxa. He has been taking colchicine 0.3 mg daily. States that colchicine 0.6 mg Twice daily causes diarrhea. 0.6 mg daily is well tolerated. He was on methotrexate while on Krystexxa but not anymore. While on Krystexxa his uric acid level was undetectable. He states that he had numerous kidney stones over the years Patient states that he feels a little worse now that he is off Krystexxa. Current Rheumatology Medication(s): Krystexxa 8mg IV every 2 weeks Methotrexate 15mg weekly Folic acid 1mg daily Colchicine 0.3mg daily prn [facility] Medical History (Updated 01/02/25 @ 11:45 by Flakito Wing MD) Colonoscopy refused GERD without esophagitis Anxiety Chronic kidney disease (CKD), stage III (moderate) Diabetes mellitus Obesity (BMI 30-39.9) Smoker COPD (chronic obstructive pulmonary disease) Pure hypercholesterolemia Benign essential hypertension Chronic tophaceous gout Surgical History History of lung surgery History of left knee replacement Family History Mother Diabetes Arthritis Father Gout Social History Housing: House Alcohol intake: current Alcohol intake frequency: holidays/special occasions only Alcohol type: beer Patient Tobacco Use Status: Current everyday Tobacco user Tobacco use type: Cigarette Cigarette Packs Per Day: 0.5 Cigarettes Per Day: 10 e-Cigarette/Vaping Use: Never Used Second Hand Smoke Exposure: Yes service: No Current occupational status: disabled 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 Cognitive needs: No Hearing needs: No Vision needs: No Review of Systems Narrative Review of Systems Constitutional: Denies fever, chills, weight loss ENT: Denies vision changes, eye pain or eye redness, dental caries, dry mouth GI: Denies nausea, vomiting, diarrhea, abdominal pain, change in BM Pulm: Denies SOB, SANTIAGO, hemoptysis, wheezing Cards: Denies chest pain, palpitations Skin: Denies Raynaud's, rash, nail changes, photosensitivity, TEA BAG PACKER: Denies headaches, weakness, paresthesias, recurrent falls MSK: as per HPI All other systems reviewed and are unremarkable except noted above Physical Exam Exam Exam: Vital signs reviewed Physical Examination CONSTITUITIONAL Patient alert and cooperative. Well appearing and in no apparent painful distress MSK Hands * Right Hand: Able to make a fist. No swelling or tenderness to palpation of the MCPs, PIPs or DIPs. * Left Hand: Able to make a fist. No swelling or tenderness to palpation of the MCPs, PIPs or DIPs. Flexion deformity at the 5th DIP * Herbedens nodes noted bilaterally Wrists * Right Wrist: Full ROM to flexion and extension. No swelling or TTP * Left Wrist: Full ROM to flexion and extension. No swelling or TTP Elbows * Right Elbow: Decreased ROM to extension. About 60 degrees. No swelling or TTP. No TTP of the medial epicondyle. No TTP of the lateral epicondyle * Left Elbow: Decreased ROM to extension. About 60 degrees. No swelling or TTP. No TTP of the medial epicondyle. No TTP of the lateral epicondyle. Tophi noted over the elbow Shoulders * Right shoulder: Full ROM. No swelling noted. No TTP of the AC joint. No TTP of the subacromial bursa. No TTP of the posterior shoulder * Left shoulder: Full ROM. No swelling noted. No TTP of the AC joint. No TTP of the subacromial bursa. No TTP of the posterior shoulder Knees * Right knee: Full ROM. No swelling noted. No TTP of the knee joint line. No TTP of pes anserine bursa * Left knee: Full ROM. No swelling noted. No TTP of the knee joint line. TTP of pes anserine bursa. Ankles * Right ankle: Good ankle dorsiflexion and plantar flexion. No swelling. No TTP of the ankle joint * Left ankle: Good ankle dorsiflexion and plantar flexion. No swelling. No TTP of the ankle joint Feet * Right foot: Negative squeeze test * Left foot: Negative squeeze test Tender points? * No tenderness to palpation of the bilateral trapezius, supraspinatus, anterior costochondral junctions, bilateral suboccipital muscle insertions SKIN No rashes Vital Signs: Last Vital Signs Pulse 90 01/06/25 13:16 BP 154/100 H 01/06/25 13:16 Pulse Ox 98 01/06/25 13:16 Oxygen Delivery Method Room Air 01/06/25 13:16 BMI result Body Mass Index 37.2 Results Reviewed Results Reviewed: WBC 10.2 Hb 13.6 Plt 231 BUN 18 Cr 0.96 eGFR 92 AST 17 ALT 20 Uric Acid <0.2 Assessment & Plan Assessment & Plan (1) Chronic tophaceous gout: Comment: dx at age 14 Numerous medications including allopurinol, Uloric, probenecid, colchicine Krystexxa started fall- until 01/2023 with reduction of tophi size. uric acid level increased from undetectable to 12.3 1 month after Krystexxa was stopped Krystexxa restarted 03/2023 effective Code(s): M1A.9XX1 - Chronic gout, unspecified, with tophus (tophi) Category: Medical Plan: #Crystal proven tophaceous gout Patient is a 59-year-old male with crystal proven tophaceous gout here today for follow up. Doing well on Krystexxa and methotrexate. No further gout flares. Uric acid at goal. Slow resolution of his tophi Plan - Krystexxa 8mg IV every 2 weeks - Methotrexate 15mg weekly - Folic acid 1 mg daily - RTC 6 months - Labs at 3 and 6 months: CBC, CMP, ESR, CRP, UA (2) Encounter for methotrexate monitoring: Code(s): Z51.81 - Encounter for therapeutic drug level monitoring; Z79.631 - longterm (current) use of antimetabolite agent Plan: #Long-term Current Use of Methotrexate Discussed with patient the benefits and risks of methotrexate for managing their rheumatic condition Benefits include reduced pain, reduced mortality, maintenance of remission and reduction of flares Risks include oral ulcers, photosensitivity, hepatotoxicity, hematologic toxicity, pneumonitis, flu-like symptoms (especially day after administration), nodulosis, lymphomas ? Limit alcohol and avoid Bactrim ? Monitoring: ?CBC, BMP, LFTs every 3-4 months and hepatitis serologies as needed (3) Long-term use of high-risk medication: Code(s): Z79.899 - Other long winder tender (current) drug therapy Plan: #exterminator helper termite Krystexxa (pegloticase) Risks and benefits of pegloticase in the management of this patient's chronic tophaceous gout discussed with the patient. Benefits include improved gout flares, reduction of tophi and improve uric acid control. Risks include: Serious Allergic Reactions: Krystexxa can cause serious, potentially life- threatening allergic reactions, including anaphylaxis. These reactions can occur even with the first infusion and may happen during or after the infusion. Infusion Reactions: Infusion reactions, such as rash, itching, flushing, or difficulty breathing, are also possible. Gout Flares: Gout flares may initially increase in the first few months of treatment with Krystexxa, as the medication starts to break down uric acid crystals in the body. However, these flares tend to decrease with continued treatment. G6PD Deficiency: Krystexxa is contraindicated in patients with gohqkgk-3-rfyyuedts dehydrogenase (G6PD) deficiency, a genetic condition, due to the risk of serious blood problems. Plan I spent 25 minutes reviewing the record and labs, taking a history, examining the patient, discussing the treatment plan, ordering diagnostic work up and documenting in the medical record Coding Level of Care Code Est Pt Level 3 (77577) Complex EM visit Add On G2211 Diagnoses Chronic tophaceous gout M1A.9XX1 Encounter for methotrexate monitoring Z51.81; Z79.631 Long-term use of high-risk medication Z79.899
[2025-01-06 13:16] VITALS: BP 154/100; PULSE 90; O2SAT 98; BMI 37.2
--- OUTSIDE RECORDS SUMMARY | 2025-01-06 14:46 | XMS_ITS | Clinical Summary ---
Author Organization [facility] Address [address] [place] [address] Phone Care Team Providers Care Retail Solar Advisor Name Role Phone Musa Renee MD Primary Care Provider [phone] Allergies Active Allergy Reactions Criticality Noted Date [...] EST) SODIUM 141 133 - 146 mmol/L [facility] CHLORIDE 99 96 - 108 mmol/L [facility] POTASSIUM 4.7 3.3 - 5.1 mmol/L [facility] CO2 29 21 - 35 mmol/L [facility] BUN 18 6 - 19 mg/dL [facility] CREATININE 1.00 0.5 - 1.5 mg/dL [facility] GLUCOSE 117(H) 70 - 99 mg/dL [facility] CALCIUM 9.2 8.4 - 10.3 mg/dL [facility] EGFR >60 60 - 1000 mL/min/1.7 3m2 [facility] Comment:Abnormal if <60. If patient is -Polish, multiply the result by 1.21. ANION GAP 18 10 - 20 mmol/L [facility] Blood 04/02/2017 5:37 AM EST 04/02/2017 7:19 AM EST Brett Stapleton MD LAB BLOOD BKR ORDERABLES Final Result [address] [address] from Last 3 Months or Most Recently Relevant to Health Maintenance Insurance MEDICARE PART A & B [facility] MEDIC[facility] PART A & B [employer] MEDICARE PART A & [facility] & B [place] PART A & B [facility] MEDICARE PART A & B Member Subscriber Plan / Payer (Ef fective 2012-) Name:Cornelius Lino Member ID:[id number] Relation to Subscriber:Self Name:Cornelius Lino Subscriber ID:[id number] Payer ID:[id number] Group ID:Not on file Type:Medicare Address: [employer] [address] [place] [phone] [facility] & B [facility] Advance Directives For more information, please contact: [phone] (9AM - 5PM F[facility], Sunday-Sunday) * Full Code (Confirmed) (Latest Code Status on File) Date Activated Date Inactivated Comments 03/29/2017 7:14 PM 04/03/2017 3:15 PM Question Answer Comments Code Discussion Comments: w/ pt Care Teams Retail Solar Advisor Relationship Specialty Start Date End Date Musa Renee MD [address] [place] [address] [email or web address] PCP - General Family Medicine 04/01/17 Additional Source Comments The information contained in this document represents components of the legal health record. It is not the complete legal health record.[facility]
--- OUTSIDE RECORDS SUMMARY | 2025-01-06 14:46 | XMS_ITS | Encounter Summary ---
Author Organization [facility] Address [address] [place] [address] Phone Care Team Providers Care Staying Machine Operator Name Role Phone Javi Sepulveda, PhD Unavailable [phone] Musa Renee MD Primary Care Provider [phone] Encounter Details Date Type Department Care Team (Late st Contact Info) Description 07/15/2018 Procedure Pass [facility] Endoscopy Admitting Dept Virtual Department [address] [place] [address] Social History Tobacco Use Types Packs/Day Years [...] on filedocumented in this encounter Care Teams Staying Machine Operator Relationship Specialty Start Date End Date Musa Renee MD [address] [place] [address] [email or web address] PCP - General Family Medicine 04/01/17 Javi Sepulveda MBBS, PhD [address] [place] [address] [email or web address] Historical LMR Provider 12/16/1603/05/21 documented as of this encounter Additional Source Comments The information contained in this document represents components of the legal health record. It is not the complete legal health record.[facility]
--- OUTSIDE RECORDS SUMMARY | 2025-01-06 14:46 | XMS_ITS | Clinical Summary ---
Author Organization [facility] Address [address] [place] [address] Phone Care Team Providers Care Accounting Reconciliation Clerk Name Role Phone Ed Muller MD Primary [...] (one) time per week On Fridays03/03/2024 Active Social History Tobacco Use Types Packs/Day Years [...] Health Maintenance Due Date Last Done Comments Colorectal Cancer Screening: Colonoscopy 1966 Hepatitis A Vaccines (1 of 2 - Risk 2-dose series) 1985 Hepatitis B Vaccines (1 of 3 - 19+ 3-dose series) 1985 RSV Immunization Adult Patients (1 - Risk 50-74 years 1-dose series) 2016 Zoster Vaccines (1 of 2) 2016 Pneumococcal Vaccine: 50+ Years (2 of 2 - PCV) 12/25/2018 12/25/2017 COVID-19 Vaccine (3 - Modern a risk series) 10/25/2020 09/27/2020, 08/26/2020 Depression Screening 02/27/2024 Cholesterol Screening (Lipid Panel) 05/01/2024 HIV Screening 05/01/2024 Hepatitis C Screening [...] Date/Time Associated Diagnosis Comments BASIC METABOLIC PANEL STAT 09/27/2024 10:21 AM EDT from Last 3 Months or Most Recently Relevant to Health Maintenance Results * (ABNORMAL) Basic metabolic panel (09/27/2024 10:21 AM EDT) Sodium 137 133 - 145 mmol/L LAB CHEMISTRY METHOD 09/27/2024 11:11 AM [facility] Potassium 3.6 3.5 - 5.5 mmol/L LAB CHEMISTRY METHOD 09/27/2024 11:11 AM [facility] Chloride 106 96 - 110 mmol/L LAB CHEMISTRY METHOD 09/27/2024 11:11 AM [facility] CO2 20(L) 21 - 32 mmol/L LAB CHEMISTRY METHOD 09/27/2024 11:11 AM [facility] Anion Gap 11 3 - 11 LAB CHEMISTRY METHOD 09/27/2024 11:11 AM [facility] Glucose 163(H) 70 - 100 mg/dL LAB CHEMISTRY METHOD 09/27/2024 11:11 AM [facility] BUN 17 5 - 25 mg/dL LAB CHEMISTRY METHOD 09/27/2024 11:11 AM [facility] Creatinine 1.09 0.70 - 1.30 mg/dL LAB CHEMISTRY METHOD 09/27/2024 11:11 AM [facility] eGFR 79 >=60 mL/min/1. 73m2 LAB CHEMISTRY METHOD 09/27/2024 11:11 AM [facility] Comment:Calculation based on the Chronic Kidney Disease Epidemiology Collaboration (CKD-EPI) equation refit without adjustment for race. BUN/Creatinine Ratio 15.6 LAB CHEMISTRY METHOD 09/27/2024 11:11 AM EDT [facility] Calcium 8.8 8.5 - 10.5 mg/dL LAB CHEMISTRY METHOD 09/27/2024 11:11 AM EDT [facility] Blood Venous blood specimen / Unknown Venipuncture / Unknown 09/27/2024 10:21 AM EDT 09/27/2024 10:42 AM EDT us Sanchez Clifford MD LAB BLOOD ORDERABLES Final Resu lt [facility] [address] [place] [address], from Last 3 Months or Most Recently Relevant to Health Maintenance Insurance MEDICARE [place]ICA[place] - [place] Care Teams Accounting Reconciliation Clerk Relationship Specialty Start Date End Date Ed Muller MD [address] [place] [address] PCP - General Internal Medicine 06/10/15
--- OUTSIDE RECORDS SUMMARY | 2025-01-06 14:46 | XMS_ITS | Encounter Summary ---
Author Organization [facility] Address [address] [place] [id number] Phone Care Team Providers Care Curb And Gutter Laborer Name Role Phone Javi Sepulveda, PhD Unavailable [phone] Pcp, Not Required Primary Care Provider Unavaila Musa Hernandez MD Primary Care Provider [phone] Encounter Details Date Type Department Care Team (Late st Contact Info) Description 03/29/2017 Procedure Pass [facility], Ct Scan - [address] [address] Social History Tobacco Use Types Packs/Day Years [...] on filedocumented in this encounter Care Teams Curb And Gutter Laborer Relationship Specialty Start Date End Date Pcp, Not Required [address] [place] [address] PCP - General 03/29/17 03/31/17 Musa Renee MD [address] [place] [address] [email or web address] PCP - General Family Medicine 04/01/17 Javi Sepulveda MBBS, PhD [address] [place] [address] [email or web address] Historical LMR Provider 12/16/1603/05/21 documented as of this encounter Additional Source Comments The information contained in this document represents components of the legal health record. It is not the complete legal health record.[facility]
--- OUTSIDE RECORDS SUMMARY | 2025-01-06 14:46 | XMS_ITS | Encounter Summary ---
Author Organization [facility] Address [address] [place] [phone] Phone Care Team Providers Care Rn Pediatric Icu Name Role Phone Javi Sepulveda, PhD Unavailable [phone] Musa Renee MD Primary Care Provider [phone] Encounter Details Date Type Department Care Team (Late st Contact Info) Description 08/02/2017 Procedure Pass [facility] Endoscopy Admitting Dept Virtual Department [address] [place] [id number] Social History Tobacco Use Types Packs/Day Years [...] on filedocumented in this encounter Care Teams Rn Pediatric Icu Relationship Specialty Start Date End Date Musa Renee MD [address] [place] [phone] [email or web address] PCP - General Family Medicine 04/01/17 Javi Sepulveda MBBS, PhD [address] [place] [id number] [email or web address] Historical LMR Provider 12/16/1603/05/21 documented as of this encounter Additional Source Comments The information contained in this document represents components of the legal health record. It is not the complete legal health record.[facility]
== END 2025-01-06 13:36 | disposition home or self-care (01) ==
LOC: HO.RHES 13:02
PROVIDERS: PCP Internal Medicine; Visit Provider Student in an Organized Health Care Education/Training Program
DX: M1A.9XX1 Chronic gout, unspecified, with tophus (tophi) (principal); Z51.81 Encounter for therapeutic drug level monitoring; Z79.631 Long term (current) use of antimetabolite agent; Z79.899 Other long term (current) drug therapy
CPT/HCPCS: 99213; G2211

== ENCOUNTER → 2025-01-06 13:01 | Outpatient (BNVA) | payer MEDICARE, MEDICAID, SELFPAY | PROVIDERS: PCP Internal Medicine; Visit Provider Student in an Organized Health Care Education/Training Program | DX: M1A.9XX1 Chronic gout, unspecified, with tophus (tophi) (principal); Z79.631 Long term (current) use of antimetabolite agent; Z79.899 Other long term (current) drug therapy | CPT/HCPCS: 99212 ==